=== PATIENT | male | born 1940 | race Caucasian/White ===

== ENCOUNTER 2017-02-03 15:00 | Inpatient (IN) | payer BC ==
[~2017-02-03] VITALS: Ht 174 cm; Wt 78.6 kg
[2017-02-03] MEDS ORDERED: ALBUTEROL 0.5% (NEB) 2.5 MG/0.5 ML AMP INH STA (17:01)
[2017-02-03] MEDS ORDERED: SOD CHLORIDE 0.9% 1,000 ML IV STA (17:01)
[2017-02-03] MEDS ORDERED: LORAZEPAM 0.5 MG TAB PO ONE (17:30)
[2017-02-03 17:34] LABS: ADD SCAN DIFF NO
[2017-02-03 17:36] LABS: ABNORMAL IP MESSAGE 1; HEMATOCRIT 34.9 % (42.0-52.0); HEMOGLOBIN 11.8 g/dl (14.0-18.0); MEAN CORPUSCULAR HEMOGLOBIN 29.1 pg (29.0-33.0); MEAN CORPUSCULAR HGB CONC 33.8 g/dl (32.0-37.0); MEAN PLATELET VOLUME 11.3 fl (7.4-10.4); PLATELET COUNT 484 10^3/UL (140-415); RED BLOOD COUNT 4.06 10^6/ul (4.70-6.10); RED CELL DISTRIBUTION WIDTH 13.6 % (11.5-14.5); WHITE BLOOD COUNT 33.1 10^3/ul (4.8-10.8)
[2017-02-03 17:38] LABS: ADD UMIC YES; URINE BILIRUBIN (Dip) NEGATIVE (NEGATIVE); URINE BLOOD (Dip) NEGATIVE (NEGATIVE); URINE COLOR YELLOW (YELLOW); URINE KETONES (Dip) TRACE (NEGATIVE); URINE LEUKOCYTE ESTERASE (Dip) NEGATIVE (NEGATIVE); URINE NITRITE (Dip) NEGATIVE (NEGATIVE); URINE TOTAL PROTEIN (Dip) 1+ (NEGATIVE); URINE UROBILINOGEN (Dip) 0.2 E.U./dL (0.1-1.0)
[2017-02-03 17:51] LABS: ALBUMIN 3.4 g/dl (3.3-4.9); BACTERIA,URINE FEW; CHLORIDE 93 mmol/L (97-110); SODIUM 133 mmol/L (135-144); SQUAMOUS EPITHELIAL CELL,UR RARE; URINE RBCS 0-2 /HPF (0)
[2017-02-03 17:53] LABS: CREATININE 1.25 mg/dl (0.61-1.24)
[2017-02-03 17:54] LABS: ALANINE AMINOTRANSFERASE 69 IU/L (13-69); ALKALINE PHOSPHATASE 131 IU/L (42-121); ANION GAP 19 (8-16); ASPARTATE AMINO TRANSFERASE 48 IU/L (15-46); BILIRUBIN,INDIRECT 0.7 mg/dl (0-1.1); BILIRUBIN,TOTAL 0.7 mg/dl (0.2-1.3); BLOOD UREA NITROGEN 26 mg/dl (7-20); CALCIUM 9.1 mg/dl (8.4-10.2); CARBON DIOXIDE 26 mmol/L (21-31); GLUCOSE 305 mg/dl (70-220); TOTAL PROTEIN 7.6 g/dl (6.1-8.1)
[2017-02-03 17:58] LABS: LYMPHOCYTES # 0.3 10^3/ul (0.8-2.9); NEUTROPHIL # 30.8 10^3/ul (1.6-7.5)
[2017-02-03 18:06] LABS: TROPONIN-I < 0.012 ng/ml (0.00-0.12)
--- NOTE | 2017-02-03 18:15 | RADRPT ---
PROCEDURE: CHEST 1VW CLINICAL INDICATION: Asthma exacerbation TECHNIQUE: Single frontal view of the chest was obtained COMPARISON: None. FINDINGS: The cardiac size is normal. Aortic vascular calcifications are demonstrated. There is no pulmonary vascular congestion. Minimal bronchial wall thickening is seen. Trace right effusion with associated atelectasis. Mild degenerative changes of the visualized osseous structures are visualized. IMPRESSION: 1. Minimal bronchial wall thickening may be sequela of bronchitis, asthma, or other nonspecific air way inflammation. 2. Atherosclerosis. 3. Trace right effusion with associated atelectasis. Intercurrent process within the atelectatic l jes cannot be excluded. RPTAT:PP .Denny Pickering MD, MD Date Time Electronically viewed and signed by .Denny Pickering MD, on 02/03/2017 18:15 .V/
[2017-02-03] MEDS ORDERED: SOD CHLORIDE 0.9% 1,000 ML IV ONE ×2 (18:30→19:30)
[2017-02-03] MEDS ORDERED: VANCOMYCIN 1 GM (PMX) 250 ML IVPB SCH (18:30)
[2017-02-03] MEDS ORDERED: CEFTRIAXONE 1 GM/50 ML (PMX) 50 ML IVPB ONE (18:30)
--- NOTE | 2017-02-03 19:25 | ERA ---
ER Documentation Chief Complaint Date/Time DATE: 02/03/17 TIME: 19:13 Chief Complaint UNABLE TO SLEEP AT NIGHT HPI 76-year-old man complains of continued cough and shortness of breath despite beginning treatment with azithromycin about 3 weeks ago for cough and URI symptoms. He states about 2 weeks ago a chest x-ray revealed right pulmonary infiltrate and he began treatment with levofloxacin every other day for continued symptoms. Patient has a history of chronic kidney disease and states creatinines have been stable and he urinates daily without difficulty. He's had no calf or leg swelling, no chest pain, no vomiting or diarrhea. ROS All systems reviewed and are negative except as per history of present illness. Medications Home Meds Reported Medications Aspirin* (Aspirin* EC) 81 Mg Tablet.dr, 81 MG PO DAILY, TAB 02/03/17 Cholecalciferol (Vitamin D3) (Vitamin D-3) 2,000 Unit Tablet, 2000 UNIT PO DAILY , TAB 02/03/17 Lisinopril/Hydrochlorothiazide (Lisinopril-Hctz 20-12.5 mg Tab) 1 Each Tablet, 1 EACH PO DAILY, TAB 02/03/17 Allopurinol* (Allopurinol*) 100 Mg Tablet, 100 MG PO DAILY, TAB 02/03/17 Allergies Allergies: Coded Allergies: No Known Allergy (Unverified , 02/03/17) PMhx/Soc History of Surgery: Yes (l. knee, nose (skin CA 1990), r. kidney stone removal ) Hx Miscellaneous Medical Probl: Yes (renal disease) Hx Alcohol Use: No Hx Substance Use: No Hx Tobacco Use: No Smoking Status: Never smoker FmHx Family History: No diabetes Physical Exam Vitals Vital Signs Date Time Temp Pulse Resp B/P Pulse Ox O2 Delivery O2 Flow Rate FiO2 02/03/17 18:05 120 20 97 21 02/03/17 15:17 98.3 141 19 132/65 97 Physical Exam GENERAL: Well-developed, well-nourished, appears dehydrated. Afebrile. HEENT: Dry mucous membranes, pink conjunctiva, no cervical spine tenderness or step-off deformities, no goiter, no jaundice or icterus, extraocular movements intact without pain. No submandibular induration, and no pharyngeal erythema NEURO: Alert and oriented 3, cranial nerves II through XII intact bilaterally, pupils equal round reactive to light, no focal deficits or facial asymmetry, sensation intact distally Strength 5/5 in upper and lower extremities bilaterally CARDIAC: Tachycardic and regular, no murmurs rubs or gallops LUNGS: Poor breath sounds at the right base with scattered wheezes, no crackles or stridor. ABDOMEN: Soft nontender, no guarding, no rigidity, no rebound, no psoas sign no obturator sign. Normoactive bowel sounds SKIN: Warm and dry to touch, no abrasions, contusions, or hematomas, no lacerations, no ecchymosis, no target lesions, and without ulcers EXTREMITIES: No clubbing cyanosis or edema, calves are bilaterally symmetrical, no Homans sign, no popliteal cord sign. Distal pulses equal and bilateral PSYCH: Normal affect without agitation or irritability Result Diagram: 02/03/17172902/03/170 Results 24 hrs Laboratory Tests Test 02/03/17 17:30 Alanine Aminotransferase (ALT/SGPT) 69IU/L Albumin 3.4g/dl Albumin/Globulin Ratio 0.80 Alkaline Phosphatase 131IU/L Anion Gap 19 Aspartate Amino Transf (AST/SGOT) 48IU/L Blood Urea Nitrogen 26mg/dl Calcium Level 9.1mg/dl Carbon Dioxide Level 26mmol/L Chloride Level 93mmol/L Creatinine 1.25mg/dl Differential Comment Direct Bilirubin 0.00mg/dl Globulin 4.20g/dl Glucose Level 305mg/dl Hematocrit 34.9% Hemoglobin 11.8g/dl Indirect Bilirubin 0.7mg/dl Lipase 162U/L Lymphocytes # 0.310^3/ul Lymphocytes % 1.0% Mean Corpuscular Hemoglobin 29.1pg Mean Corpuscular Hemoglobin Concent 33.8g/dl Mean Corpuscular Volume 86.0fl Mean Platelet Volume 11.3fl Monocytes # 2.010^3/ul Monocytes % 6.0% Neutrophils # 30.810^3/ul Neutrophils % 93.0% Platelet Count 83038^3/UL Potassium Level 5.0mmol/L Red Blood Count 4.0610^6/ul Red Cell Distribution Width 13.6% Sodium Level 133mmol/L Total Bilirubin 0.7mg/dl Total Protein 7.6g/dl Troponin I < 0.012ng/ml Urine Bacteria FEW Urine Bilirubin NEGATIVE Urine Clarity CLEAR Urine Color YELLOW Urine Glucose 0.25%% Urine Hemoglobin NEGATIVE Urine Ketones TRACE Urine Leukocyte Esterase NEGATIVE Urine Microscopic RBC 0-2/HPF Urine Microscopic WBC 0-2/HPF Urine Nitrite NEGATIVE Urine Specific [place] 1.025 Urine Squamous Epithelial Cells RARE Urine Total Protein 1+ Urine Urobilinogen 0.2 E.U./dL Urine pH 5.5 White Blood Count 33.110^3/ul Current Medications Medications (Trade) Dose Ordered Sig/Andreas Route PRN Reason Start Time Stop Time Status Last Admin Dose Admin Sodium Chloride (NS) 1,000 ml @ 1,000 mls/hr Q1H STAT IV 02/03/17 17:01 02/03/17 18:00 DC 02/03/17 17:36 Albuterol (Proventil 0.5% (Neb)) 10 mg ONCE STAT INH 02/03/17 17:01 02/03/17 17:03 DC 02/03/17 18:04 Lorazepam 0.5 mg 0.5 mg ONCE ONCE PO 02/03/17 17:30 02/03/17 17:31 DC 02/03/17 17:36 Sodium Chloride 1,000 ml @ 1,000 mls/hr Q1H ONCE IV 02/03/17 18:30 02/03/17 19:29 DC 02/03/17 19:03 Ceftriaxone Sodium 50 ml @ 100 mls/hr ONCE ONCE IVPB 02/03/17 18:30 02/03/17 18:59 DC 02/03/17 18:27 Vancomycin HCl 250 ml @ 125 mls/hr ONCE IVPB 02/03/17 18:30 02/03/17 20:29 02/03/17 19:03 Sodium Chloride 1,000 ml @ 1,000 mls/hr Q1H ONCE IV 02/03/17 19:30 02/03/17 20:29 Sodium Chloride (NS) 1,000 ml @ 100 mls/hr Q10H IV 02/03/17 19:29 IV Flush (NS 3 ml) 3 ml PER PROTOCOL IV 02/03/17 19:30 Ondansetron HCl (Zofran Inj) 4 mg Q6H PRN IV NAUSEA AND/OR VOMITING 02/03/17 19:30 Acetaminophen (Tylenol Tab) 650 mg Q6H PRN PO PAIN LEVEL 1-3 OR FEVER 02/03/17 19:30 Acetaminophen/ Hydrocodone Bitart ([place] (5/325)) 1 tab Q6H PRN PO MODERATE PAIN LEVEL 4-6 02/03/17 19:30 Acetaminophen/ Hydrocodone Bitart ([place] (5/325)) 2 tab Q6H PRN PO SEVERE PAIN LEVEL 7-10 02/03/17 19:30 Morphine Sulfate (morphine) 2 mg Q4H PRN IV SEVERE PAIN LEVEL 7-10 02/03/17 19:30 Docusate Sodium (Colace) 100 mg Q12H PRN PO CONSTIPATION 02/03/17 19:30 Magnesium Hydroxide (Milk Of Mag) 30 ml DAILY PRN PO CONSTIPATION 02/03/17 19:30 Bisacodyl (Dulcolax Supp) 10 mg DAILY PRN NV CONSTIPATION 02/03/17 19:30 Pantoprazole (Protonix Tab) 40 mg DAILY@06 PO 02/04/17 06:00 Heparin Sodium (Porcine) (Heparin (5000 Units/0.5 ml)) 5,000 unit Q8 SC 02/03/17 22:00 Vancomycin HCl (Vanco Iv Per Pharmacy) VANCOMYCIN PER PHARMACY PER PROTOCOL XX 02/03/17 20:00 UNV Insulin Aspart (Novolog Insulin Pen) NOVOLOG *MODERATE* ALGORITHM WITH MEALS BEDTIME SC 02/03/17 21:00 Miscellaneous Information (* Miscellaneous Pharmacy Order) HYPOGLYCEMIA PROTOCOL w... ONCE ONCE XX 02/03/17 20:00 02/03/17 20:01 Miscellaneous Information (* Miscellaneous Pharmacy Order) Discontinue Glyburide, Glipizide,... ONCE ONCE XX 02/03/17 20:00 02/03/17 20:01 Miscellaneous Information (* Miscellaneous Pharmacy Order) Discontinue all previ... ONCE ONCE XX 02/03/17 20:00 02/03/17 20:01 Miscellaneous Information 1 ea NOTE XX 02/03/17 20:00 Glucose (Glutose) 15 gm Q15M PRN PO DECREASED GLUCOSE 02/03/17 20:00 Glucose (Glutose) 22.5 gm Q15M PRN PO DECREASED GLUCOSE 02/03/17 20:00 Dextrose (D50w Syringe) 25 ml Q15M PRN IV DECREASED GLUCOSE 02/03/17 20:00 Dextrose (D50w Syringe) 50 ml Q15M PRN IV DECREASED GLUCOSE 3/21/17 20:00 Glucagon (Glucagen) 1 mg Q15M PRN IM DECREASED GLUCOSE 02/03/17 20:00 Glucose (Glutose) 15 gm Q15M PRN BUCCAL DECREASED GLUCOSE 02/03/17 20:00 Lorazepam (Ativan) 0.5 mg Q8H PRN IV ANXIETY 02/03/17 20:00 UNV Zolpidem Tartrate 5 mg 5 mg HS MAY REPEAT X 1 PRN PO INSOMNIA 02/03/17 20:00 UNV Cefepime HCl (Maxipime 2gm/50 ml (Pmx)) 50 ml @ 100 mls/hr Q12 IVPB 02/03/17 21:00 UNV Allopurinol (Zyloprim) 100 mg DAILY PO 02/04/17 09:00 UNV Aspirin (Halfprin) 81 mg DAILY PO 02/04/17 09:00 UNV Miscellaneous Information 2,000 unit DAILY PO 02/04/17 09:00 UNV Procedures/MDM IV line was established 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 Patient was afebrile. Blood cultures were drawn prior to antibiotic therapy. I do not suspect sepsis. I administered about 2 L normal saline intravenously for dehydration, albuterol 10 mg via nebulizer, ceftriaxone 1 g IV, vancomycin 1 g IV. EKG performed, read by me revealed a sinus tachycardia at 119 bpm, left axis deviation, narrow QRS complex, no concerning ST elevations or depressions noted. One view chest x-ray performed, read by me reveals a right lower lobe infiltrate with atelectatic changes bilaterally, no pneumothorax, no and of the diaphragm. For anxiety I administered lorazepam 0.5 mg by mouth times one with good effect. Patient remains afebrile although his symptomatic I will admit to [facility] for continued medical management and IV antibiotics. Further antibiotic treatment deferred to admitting physician. Departure Diagnosis: Primary Impression: Pneumonia Qualified Code: J18.9 - Pneumonia of right lower lobe due to infectious organism Additional Impressions: Dehydration Leukocytosis Qualified Code: D72.820 - Lymphocytosis Hyperglycemia Chronic kidney disease Qualified Code: N18.3 - Chronic kidney disease, stage 3 (moderate) Condition: CODY Muller MD Feb 03, 2017 19:24
[2017-02-03] MEDS ORDERED: BISACODYL 10 MG SUPP PR PRN (19:30)
[2017-02-03] MEDS ORDERED: MAGNESIUM HYDROXIDE 30ML CUP PO PRN (19:30)
[2017-02-03] MEDS ORDERED: DOCUSATE SODIUM 100 MG CAP PO PRN (19:30)
[2017-02-03] MEDS ORDERED: ACETAMINOPHEN 325 MG TAB PO PRN (19:30)
[2017-02-03] MEDS ORDERED: ONDANSETRON 4 MG INJ IV PRN (19:30)
[2017-02-03] MEDS ORDERED: NACL 0.9% 3 ML SYG IV SCH (19:30)
[2017-02-03] MEDS ORDERED: ALLO100T PO (19:45)
[2017-02-03] MEDS ORDERED: LISI1TAB6 PO (19:46)
[2017-02-03] MEDS ORDERED: CHOL20002 PO (19:48)
[2017-02-03] MEDS ORDERED: ASPI-664 PO (19:49)
[2017-02-03] MEDS ORDERED: DEXTROSE 50% 50 ML SYRINGE IV PRN ×2 (20:00)
[2017-02-03] MEDS ORDERED: GLUCOSE GEL 15 GRAM TUBE PO PRN ×2 (20:00)
[2017-02-03] MEDS ORDERED: VANCOMYCIN IV PER PHARMACY XX SCH (20:00)
[2017-02-03] MEDS ORDERED: GLUCOSE GEL 15 GRAM TUBE BUCCAL PRN (20:00)
[2017-02-03] MEDS ORDERED: GLUCAGON 1 MG INJ IM PRN (20:00)
[2017-02-03] MEDS ORDERED: LORAZEPAM 2 MG INJ IV PRN (20:00)
[2017-02-03] MEDS: INSULIN ASPART [NOVOLOG] 3 ML PEN SC SCH (21:00)
--- NOTE | 2017-02-03 21:13 | RADRPT ---
PROCEDURE: CT Chest without contrast. CLINICAL INDICATION: Shortness of breath. Abnormal chest x-ray. TECHNIQUE: Helical axial sections were obtained through the chest without intravenous contrast enh ancement. Coronal and sagittal reformatted images were obtained from the axial source images. Total exam DLP is 412.03 mGy-cm. CTDIvol is 11.51 mGy. One or more of the following dose reduction juan hniques were used: Automated exposure control, adjustment of the mA and/or kV according to patient s ize, use of iterative reconstruction technique. COMPARISON: None FINDINGS: There is a pleural-based multiloculated fluid collection posteriorly inferiorly on the right side co nsistent with probable empyema measuring approximately 12.1 x 4.2 x 10.7 cm in AP, transverse, and c ranial caudal dimensions. A second fluid collection is noted anteriorly inferiorly on the right [place] approximately 3.0 x 5.3 x 3.5 cm in AP, transverse, and cranial caudal dimensions. There is a djacent mild pulmonary consolidation consistent with atelectasis or pneumonia. There is mild atelec tasis at the left lung base posteriorly. There is no pulmonary nodule or mass lesion. There is no mediastinal or hilar lymphadenopathy or mass. There is no axillary, supraclavicular, or internal mammary lymphadenopathy. The thoracic aorta is not dilated. The heart size is normal. There is no pericardial effusion. There is no left pleural effusion. Images through the upper abdomen demonstrate normal visualized portions of the liver, spleen, and ad renals. There is a calcified gallstone in the gallbladder. There is ossification of the anterior longitudinal ligament of the thoracic spine consistent with pr obable ankylosing spondylitis. There is no fracture or lytic lesion. IMPRESSION: 1. Pleural-based multiloculated fluid collection posteriorly inferiorly on the right measuring 12.1 x 4.2 x 10.7 cm. Second fluid collection anteriorly inferiorly on the right measuring 3.0 x 5.3 x 3.5 cm. The findings are likely due to empyema. 2. Mild pulmonary consolidation adjacent to the fluid collections. 3. Gallstone in the gallbladder. 4. Ossification of the anterior longitudinal ligament of the thoracic spine consistent with probabl e ankylosing spondylitis. RPTAT: QQ .Kyle Vizcarra MD, MD Date Time Electronically viewed and signed by .Kyle Vizcarra MD, on 02/03/2017 21:12 .R/
[2017-02-03 21:25] VITALS: TEMP 98.3
[2017-02-03 21:50] VITALS: Ht 174 cm; Wt 78.6 kg
[2017-02-03 22:13] VITALS: BP 119/56; PULSE 100; RESP 18
[2017-02-03] MEDS: SOD CHLORIDE 0.9% 1,000 ML IV SCH (22:43)
[2017-02-03] MEDS: CEFEPIME 2GM/50 ML (PMX) 50 ML IVPB SCH (23:40)
[2017-02-03] MEDS: ZOLPIDEM 5 MG TAB PO PRN (23:40)
[2017-02-03] MEDS: HEPARIN 5,000 UNIT/0.5 ML SYG SC SCH (23:44)
[2017-02-04] MEDS: VANCOMYCIN 1 GM in NS 250 ML IVPB SCH ×2 (04:28→16:58)
[2017-02-04] MEDS: SOD CHLORIDE 0.9% 1,000 ML IV SCH ×2 (05:29→15:29)
[2017-02-04] MEDS: PANTOPRAZOLE (EC) 40 MG TAB PO SCH (05:31)
[2017-02-04] MEDS: HEPARIN 5,000 UNIT/0.5 ML SYG SC SCH ×2 (05:35→13:14)
[2017-02-04 06:32] LABS: ADD SCAN DIFF NO
[2017-02-04 06:37] LABS: ABNORMAL IP MESSAGE 1; BASOPHILS % 0.1 % (0.0-2.0); HEMATOCRIT 28.5 % (42.0-52.0); HEMOGLOBIN 9.2 g/dl (14.0-18.0); LYMPHOCYTES # 0.5 10^3/ul (0.8-2.9); LYMPHOCYTES % 2.3 % (15.0-51.0); MEAN CORPUSCULAR HEMOGLOBIN 28.4 pg (29.0-33.0); MEAN CORPUSCULAR HGB CONC 32.3 g/dl (32.0-37.0); MEAN PLATELET VOLUME 10.9 fl (7.4-10.4); MONOCYTE # 1.9 10^3/ul (0.3-0.9); MONOCYTES % 8.8 % (0.0-11.0); NEUTROPHILS % 87.2 % (39.0-77.0); PLATELET COUNT 353 10^3/UL (140-415); RED BLOOD COUNT 3.24 10^6/ul (4.70-6.10); RED CELL DISTRIBUTION WIDTH 13.7 % (11.5-14.5); WHITE BLOOD COUNT 21.8 10^3/ul (4.8-10.8)
[2017-02-04 07:09] LABS: ALBUMIN 2.6 g/dl (3.3-4.9); POTASSIUM 4.3 mmol/L (3.5-5.1)
[2017-02-04 07:11] LABS: BILIRUBIN,INDIRECT 0.3 mg/dl (0-1.1); BILIRUBIN,TOTAL 0.3 mg/dl (0.2-1.3); CREATININE 1.09 mg/dl (0.61-1.24)
[2017-02-04 07:12] LABS: ALBUMIN/GLOBULIN RATIO 0.76; PHOSPHORUS 2.7 mg/dl (2.5-4.9)
[2017-02-04 07:13] LABS: CALCIUM 7.9 mg/dl (8.4-10.2); MAGNESIUM 1.8 mg/dl (1.7-2.5)
[2017-02-04] MEDS: CHOLECALCIFEROL 2,000 UNIT CAP PO SCH (08:15)
[2017-02-04] MEDS: INSULIN ASPART [NOVOLOG] 3 ML PEN SC SCH ×5 (08:15→20:49)
[2017-02-04] MEDS: ALLOPURINOL 100 MG TAB PO SCH (08:15)
[2017-02-04] MEDS: ASPIRIN (EC) 81 MG TAB PO SCH (08:15)
[2017-02-04 08:40] VITALS: BP 101/49; RESP 20
[2017-02-04] MEDS: CEFEPIME 2GM/50 ML (PMX) 50 ML IVPB SCH ×2 (10:10→20:46)
--- NOTE | 2017-02-04 14:01 | HP ---
DATE OF ADMISSION: 02/03/2017 CHIEF COMPLAINT ON ADMISSION: Discomfort, inability to sleep. HISTORY OF PRESENT ILLNESS: This is a 76-year-old male with apparently history of chronic kidney di sease stage I or II and also more recently a recent diagnosis of right lower lobe pneumonia approxim ately a month to month and half ago. The patient originally went to his primary care physician back in December with complaint of cough. He was seen at that time and treated conservatively with just Tylenol and cough suppressant. A week later the patient was not doing well. He kept coughing. He decided to go to urgent care where he had a chest x-ray done. He was found to have a right lower l obe pneumonia and started on a Z-ROSALEE. He followed up a week after that at the urgent care again had a repeat x-ray which showed, according to the patient, slight improvement of the right lower lobe p neumonia, but not significant enough; therefore, he was started on Levaquin and because of his histo ry of kidney disease he was put on Levaquin every other day dosing for a total of 5 days. The patie nt subsequently apparently followed up with his primary care physician and also had lab drawn on 05/2017 was found to have a white blood cell count of 32,000. He then was still on Levaquin and fin ishing his antibiotic course. He had repeat labs 3 days later white count was down to 28,000. Ther efore, at that time he was told he was doing better and set up to have a CAT scan as an outpatient. He had a CT of the chest apparently as an outpatient 5 days ago and was told that he still had sign s of pneumonia, but no concerning findings apparently. The patient over the past 5 days was at home just in a lot of discomfort. He was unable to sleep. He reports occasional dyspnea on exertion, d yspnea with speech or orthopnea and just restlessness at night mostly. He was having pleuritic righ t-sided chest pain earlier on when he was first diagnosed with pneumonia, but it resolved while he w as on ibuprofen. Therefore, it seems like his symptoms for the pneumonia were improving; however, t he patient was just very restless. In the emergency department, he had a chest x-ray done which did show right pleural effusion, possible underlying infiltrate. His white blood cell count came back at 33,000, and the patient has been off antibiotics for a week and a half by now. He was started on IV fluids, broad spectrum antibiotic including cefepime and vancomycin and admitted to a medical/guerrero rgical bed. CAT scan of the chest was again ordered. This time the CAT scan from here at [facility] is showing pleural based multiloculated fluid collection posteriorly inferiorly in the right measuring 12 x 4 x 10 cm second fluid collection anterior inferiorly on the right measu ring 3 x 5 x 3 cm, findings likely due to empyema according to the CAT scan. The patient is agreeab le to have a diagnostic paracentesis today. His white count is down to 21,000 on labs today and dep ending on the results of the thoracentesis. I will discuss with pulmonary if the patient needs any further surgical intervention versus antibiotic treatment. The patient reports no fevers throughout . His cough has subsided and resolved by now. He reports generalized weakness and slightly decreas ed appetite. ALLERGIES: NO KNOWN ALLERGIES. PAST MEDICAL HISTORY: 1. Chronic kidney disease must be stage I or II. This is secondary to right kidney damage secondar y to nephrolithiasis back in 2008. 2. Right lower lobe pneumonia recently diagnosed and has gone through antibiotics as an outpatient. OUTPATIENT MEDICATIONS: 1. Lisinopril/hydrochlorothiazide 20/12.5 mg 1 tab p.o. daily. 2. Aspirin 81 mg p.o. daily. 3. Vitamin D3 2000 units p.o. daily. 4. Allopurinol 100 mg p.o. daily. PAST SURGICAL HISTORY: 1. Status post left knee ligament repair back in the 70s. 2. Status post nasal surgery for skin cancer from what he is report back in the s. 3. Status post lithotripsy and ureteral stent placement to left kidney back in 2008 when he had an episode of obstructive uropathy and nephrolithiasis. SOCIAL HISTORY: The patient denies any alcohol or tobacco use. REVIEW OF SYSTEMS: As per HPI. PHYSICAL EXAMINATION: VITAL SIGNS: Temperature 98.3, heart rate of 102, respiratory rate of 20, blood pressure 101/49. P atient is saturating 94% on room air. GENERAL: He is alert and oriented x4, not in acute distress, very pleasant gentleman. HEENT: Pupils are equally round and reactive to light. Extraocular muscles are intact. Anicteric sclerae. NECK: No JVD, no thyromegaly noted. HEART: Regular rhythm, tachycardic slightly. LUNGS: Decreased breath sounds, right lower lobe, otherwise clear to auscultation left side and rig ht upper lobe. ABDOMEN: Soft, nontender, nondistended. Bowel sounds are present. EXTREMITIES: No edema, clubbing or cyanosis. NEUROLOGIC: Grossly intact. LABORATORY DATA: White blood cell count is 21.8, down from 33.1, hemoglobin 9.2 down from 11.8, rosie telet count of 353, down from 484. On presentation, he had a left shift with 93% neutrophils. Chem istry with a sodium of 137, potassium 4.3, chloride 103, bicarbonate 24, BUN 18, creatinine 1.09, gl ucose of 185. Hemoglobin A1c is 9.0, calcium 7.9, albumin 2.6, total protein 6.0, blood sugars have ranged between 185 and 230. Urinalysis is fairly negative. RADIOLOGICAL DATA: 1. Chest x-ray on presentation showed minimal bronchial wall thickening, may be a sequelae of bronc hitis, asthma or airway inflammation and trace right effusion with associated atelectasis. 2. CAT scan of the chest, subsequently showed a pleural based multiple loculated fluid collection p osteriorly inferiorly on the right measuring 12.1 x 4.2 x 10.7 cm. Second fluid collection anteriorl y inferior to the right measuring 3.0 x 5.3 x 3.5 cm. Finding likely due to empyema, mild pulmonary consolidation adjacent to the fluid collection, gallstone in the gallbladder, ossification of the a nterior longitudinal ligament of the thoracic spine consistent with probable ankylosing spondylitis. ASSESSMENT AND PLAN: This is a 76-year-old male with: 1. Located pleural effusions concern for empyema given his white blood cell count of 33, known righ t lower lobe pneumonia that has been on treatment for the past few weeks and current CT scan finding s. I have ordered a diagnostic thoracentesis. I will have pulmonary consult on board, along with a lso infectious disease consult and depending on the results of the thoracentesis we will have cardio thoracic surgery involved if the patient needs VATS procedure. For now, continue broad spectrum ant ibiotics including cefepime and vancomycin. 2. Chronic kidney disease. Must be stage I or II, as the patient's renal function is fairly good cu rrently. Continue IV fluids and renal dose antibiotics as needed. 3. New onset diabetes mellitus versus hyperglycemia related to the underlying inflammatory or infec tious process. Hemoglobin A1c is up to 9.0. I have placed the patient on a sliding scale insulin f or now and he may benefit from Tradjenta in order to control his blood sugars while inpatient. 4. Hypertension. I will hold his medications for now including the diuretics. Continue IV fluids and monitor renal function. 5. Prophylaxis. Deep venous thrombosis prophylaxis with heparin drip. We will hold at this time s yash we are attempting the thoracentesis and Protonix for GI prophylaxis. DISPOSITION: Right pleural effusion thoracentesis diagnostic pending, pulmonary and infectious dise ase consult will also be ordered. Dictated By: PAULIE COSTA/JARED Conf#: [id number] DID#: [id number]
[2017-02-04 14:06] LABS: INR 1.25; PROTIME 15.8 Sec (12.2-14.2); PT RATIO 1.2
[2017-02-04 14:42] LABS: PARTIAL THROMBOPLASTIN TIME 35.8 Sec (25.0-35.0)
[2017-02-04] MEDS ORDERED: LIDOCAINE 1% (MPF) 5 ML VIAL ONE (16:29)
--- NOTE | 2017-02-04 16:38 | RADRPT ---
PROCEDURE: XR Chest. CLINICAL INDICATION: Status post thoracentesis TECHNIQUE: Single portable view of the chest was obtained COMPARISON: Yesterday FINDINGS: The heart, lungs and mediastinum are otherwise unchanged. There is no evidence of pneumothorax statu s post thoracentesis. There is right lower lobe atelectasis and right pleural effusion. The heart i s normal in size. RPTAT:AA IMPRESSION: No pneumothorax status post thoracentesis. .Bear Fraser MD, MD Date Time Electronically viewed and signed by .Bear Fraser MD, MD on 02/04/2017 16:38 .S/
--- NOTE | 2017-02-04 16:41 | RADRPT ---
PROCEDURE: US guided right thoracentesis. CLINICAL INDICATION: Shortness of breath. Right pleural effusion. TECHNIQUE: Prior to the procedure, informed consent was obtained. The risks, benefits, and alternatives were e xplained to the patient or the patient's family, including but not limited to bleeding, infection, p ain, visceral or vascular damage, shock, pneumothorax, chest tube placement, air embolism, and . The patient or the patient's family understood the risks and the alternatives and wished to proce ed with the study. Informed written consent was obtained. A procedural pause was performed. The patient's name, date of , and procedure to be performed were verified. Ultrasound of the right hemithorax was performed in the axial and sagittal planes. A right pleural e ffusion is noted. Utilizing ultrasound guidance, optimal location for entry to the pleural cavity wa s ascertained. The overlying skin was prepped and draped in the usual sterile fashion. Approximate ly 10 ml of 1% Xylocaine was injected locally for pain control. Using ultrasound guidance, a 5-Fren Yueh catheter was introduced into the right pleural space without difficulty. Fluid was aspirated . COMPARISON: CT scan of the chest dated 02/03/2017. FINDINGS: Initial ultrasound demonstrates fluid in the right pleural space. Approximately 2 ml of thick green fluid was aspirated and sent to the laboratory. IMPRESSION: 1. Satisfactory ultrasound-guided right thoracentesis. Thick green fluid was aspirated. Surgical c onsultation is advised. RPTAT: QQ .Kyle Vizcarra MD, MD Date Time Electronically viewed and signed by .Kyle Vizcarra MD, on 02/04/2017 16:40 .R/
--- NOTE | 2017-02-04 17:02 | QN ---
Documentation Comment Called by Dr Vizcarra, Patient with green purulent material from diagnostic thoracentesis, recommending Cardio-Thoracic surgery evaluation Dr Negrete consulted . Continue IV abx for now PAULIE DIAZ Feb 04, 2017 17:02
[2017-02-04 21:08] VITALS: BP 126/57; RESP 20
[2017-02-04] MEDS: ZOLPIDEM 5 MG TAB PO PRN (23:57)
[2017-02-05] MEDS: SOD CHLORIDE 0.9% 1,000 ML IV SCH ×4 (01:29→17:02)
[2017-02-05] MEDS: VANCOMYCIN 1 GM in NS 250 ML IVPB SCH ×2 (03:45→20:21)
[2017-02-05] MEDS: PANTOPRAZOLE (EC) 40 MG TAB PO SCH (05:06)
[2017-02-05 05:54] LABS: ADD SCAN DIFF NO
[2017-02-05 06:00] LABS: ABNORMAL IP MESSAGE 1; BASOPHILS % 0.1 % (0.0-2.0); EOSINOPHILS % 0.1 % (0.0-7.0); HEMATOCRIT 31.2 % (42.0-52.0); HEMOGLOBIN 9.9 g/dl (14.0-18.0); LYMPHOCYTES # 1.4 10^3/ul (0.8-2.9); LYMPHOCYTES % 5.5 % (15.0-51.0); MEAN CORPUSCULAR HGB CONC 31.7 g/dl (32.0-37.0); MEAN CORPUSCULAR VOLUME 88.1 fl (82.0-101.0); MONOCYTE # 1.5 10^3/ul (0.3-0.9); MONOCYTES % 6.2 % (0.0-11.0); NEUTROPHIL # 21.4 10^3/ul (1.6-7.5); NEUTROPHILS % 85.9 % (39.0-77.0); PLATELET COUNT 395 10^3/UL (140-415); RED BLOOD COUNT 3.54 10^6/ul (4.70-6.10); RED CELL DISTRIBUTION WIDTH 13.8 % (11.5-14.5); WHITE BLOOD COUNT 24.9 10^3/ul (4.8-10.8)
[2017-02-05 06:27] LABS: MAGNESIUM 1.8 mg/dl (1.7-2.5); PHOSPHORUS 3.3 mg/dl (2.5-4.9)
[2017-02-05 06:39] LABS: POTASSIUM 4.1 mmol/L (3.5-5.1)
[2017-02-05 06:41] LABS: CREATININE 1.07 mg/dl (0.61-1.24)
[2017-02-05 06:42] LABS: CALCIUM 8.5 mg/dl (8.4-10.2)
[2017-02-05] MEDS: INSULIN ASPART [NOVOLOG] 3 ML PEN SC SCH ×4 (08:00→21:00)
[2017-02-05 08:36] VITALS: BP 114/54; RESP 20
[2017-02-05] MEDS: ALLOPURINOL 100 MG TAB PO SCH (09:00)
[2017-02-05] MEDS: ASPIRIN (EC) 81 MG TAB PO SCH (09:00)
[2017-02-05] MEDS: CHOLECALCIFEROL 2,000 UNIT CAP PO SCH (09:00)
[2017-02-05] MEDS ORDERED: INFLUENZA VIRUS VACCINE 0.5 ML (DISPENSING) IM* ONE (09:00)
[2017-02-05] MEDS: CEFEPIME 2GM/50 ML (PMX) 50 ML IVPB SCH ×2 (09:26→21:56)
--- NOTE | 2017-02-05 09:51 | CONS ---
DATE OF ADMISSION: 02/03/2017 DATE OF CONSULTATION: 02/05/2017 TYPE OF CONSULTATION: Thoracic surgical REQUESTING PHYSICIANS: Dr. Jessie Patricio DIAGNOSIS: Right-sided empyema. HISTORY OF PRESENT ILLNESS: Patient is a 76-year-old gentleman with a history of pneumonia, shortne ss of breath, cough of 1 1.5 months' duration. He experienced some pleuritic sided chest pain, soug ht assistance at [facility] and was given first a Z-ROSALEE and x-ray demonstrated right pneumonia . Ibuprofen was prescribed a Z-ROSALEE was then switched to Levaquin p.o. and then he went to a [facility] around January [address] scan of the chest. He had lost approximately 30 pounds of weight, became very lethargic and weak and presented to [facility] where he was adm itted on 02/03/2017. His white count is in the 25 to 30,000 range. A chest x-ray demonstrated a right pleural effusion. Chest CT demonstrated loculated pleural fluid, right-sided thoracentesis obtained yesterday demonstrating denise pus. The patient has been treated with IV vancomycin and cefepime. ALLERGIES: HAS NO KNOWN MEDICAL ALLERGIES. PAST MEDICAL HISTORY: Kidney stone. He is treated for what sounds like hypertension. Denies diabe keny, hypertension, TB, hepatitis, cancer, myocardial infarction or stroke. SOCIAL HISTORY: Nonsmoker, nondrinker. FAMILY HISTORY: Mother at age 53. Uterine carcinoma. Father at age 88 heart disease, pr ostate cancer. REVIEW OF SYSTEMS: CONSTITUTIONAL: Denies fever. Admits to chills, weight loss as noted above. Eyes: Denies blurred or double vision. NEUROLOGICAL: Denies syncope, seizure or CVA. RESPIRATORY: Positive for shortness of breath and cough, but denies sputum production, hemoptysis o r wheezing. CARDIAC: Denies heart murmur, palpitations, myocardial infarction. GENITOURINARY: Positive for kidney stone in the distant past. Denies hematuria. Denies UTI. GASTROINTESTINAL: Denies peptic ulcer disease, biliary tract disease, hematemesis. MUSCULOSKELETAL: Denies arthritis. DERMATOLOGIC: Denies skin rash or boils. ENT: Denies epistaxis, denies sinusitis. PHYSICAL EXAMINATION: VITAL SIGNS: Height 5 foot 8, 165 pounds, blood pressure 126/57, pulse 112, respirations 20. HEENT: Atraumatic, normocephalic. Sclerae are anicteric. Pupils equal, round, react to light and accommodation. Nose, mouth and throat clear. NECK: Supple. CHEST: Lungs stout, decreased breath sounds on the right compared to the left. CARDIAC: Tachycardic, normal S1, S2. EXTREMITIES: No cyanosis, clubbing or edema. ABDOMEN: Normal bowel sounds. Soft. No tenderness, mass or guarding. LYMPHATIC: No cervical or axillary adenopathy. NEUROLOGIC: Cranial nerves II through XII intact. Motor, sensory, cerebellar intact. IMPRESSION: Right-sided empyema and right-sided pneumonia. PLAN: Right-sided thoracotomy, pulmonary decortication and a flexible bronchoscopy. The procedures were explained to the patient, potential need for blood transfusion were explained and accepted. C omplications include but are not limited to anesthesia, bleeding, infection, injury to the underlyin g lung and respiratory failure requiring prolonged mechanical ventilation. All questions are answer ed. He gives informed consent to proceed. Dictated By: PARTH HURST/JARED Conf#: [id number] DID#: [id number] CC: REBA RAI MD; PAULA DOMINGUEZ MD;*[facility]*
--- NOTE | 2017-02-05 10:37 | RADRPT ---
Vent Rate: 119 bpm RR Interval: 0 msec [place] Interval: 178 msec QRS Duration: 84 msec QT Interval: 316 msec QTC Interval: 444 msec P-R-T Fenton: 74 - -60 - 70 degrees Sinus tachycardia Left anterior fascicular block Minimal voltage criteria for LVH, may be normal variant Abnormal ECG Electronically Signed By: Barry Cotto [id number]
[2017-02-05 11:17] LABS: INR 1.16; PROTIME 14.9 Sec (12.2-14.2); PT RATIO 1.2
--- NOTE | 2017-02-05 13:34 | CONS ---
Date/Time of Note Date/Time of Note DATE: 02/05/17 TIME: 13:30 Assessment/Plan Assessment/Plan Additional Assessment/Plan Chest x-ray was reviewed from which is showing right lower lobe infiltrative changes. CT scan chest was reviewed which is showing partially loculated right pleural effusion. Assessment and recommendations; 1. Patient admitted for empyema. With significant leukocytosis. Currently on appropriate antibiotic regimen. 2. Stable hypertension. Next 3. Stable gout. Continue current treatment. Patient scheduled for VATS procedure today. Consultation Date/Type/Reason Admit Date/Time Feb 03, 2017 at 19:13 Date of Consultation: Feb 05, 2017 Type of Consultation: Pulmonary Reason for Consultation Pulmonary consultation obtained for evaluation of empyema. History presenting; patient is a very pleasant 76-year-old white male who came into the hospital 2 days ago with complaints of not feeling well with the last couple weeks the patient has had a history of recent pneumonia was treated on outpatient basis with antibiotics but according to him he did not just get better. Complaining of right-sided pain brought on by deep breathing. Scant cough. Cording to him the couple of very severe a few weeks ago. Patient has lost 30 pounds over the last couple weeks. Denies any low-grade fever any night sweats fever chills according to him he somewhat better now. Admission chest x-ray was done which is showing infiltrative changes right lower lobe area which is suggestive of pneumonia versus pleural effusion. She also had had a thoracentesis done but very scant fluid could be removed. CT scan of chest showing empyema involving the right lung. Patient is scheduled for a VATS procedure today. Past medical history; next 1. Patient with a history of renal stone. 2. Hypertension. 3. History of left knee surgery. 4. History of skin cancer involving the Medications; were reviewed. Allergies; are none. Social history; patient never smoked, no history of alcohol or drug abuse. Next Family history; patient is , has 1 child. No show any illnesses in the family. Occupational history; patient used to work for [employer]. He is retired. Review of systems; denies any headache, visual changes, seizures, sinus symptoms. Chest pain on the right side is improved. Because of cough, denies any sputum production hemoptysis. Abdominal pain, nausea, has lost 30 pounds. Denies any edema, complains of severe generalized weakness for the last couple weeks. Denies any skin changes. General exam; elderly male, currently in no distress. Awake and alert. Social History Smoking Status: Never smoker Exam/Review of Systems Vital Signs Vitals Vital Signs Date Time Temp Pulse Resp B/P Pulse Ox O2 Delivery O2 Flow Rate FiO2 02/05/17 08:36 99.6 105 20 114/54 95 02/03/17 22:13 Room Air 02/03/17 18:05 21 Intake and Output 02/04/17 02/04/17 02/05/17 15:00 23:00 07:00 Intake Total 50 ml 1100 ml 1275 ml Output Total 1250 ml Balance 50 ml 1100 ml 25 ml Results Result Diagram: 02/05/17 0510 02/05/17 0510 Results 24 hrs Laboratory Tests Test 02/04/17 13:39 02/04/17 17:12 02/04/17 20:43 02/05/17 03:47 Prothrombin Time 15.8 H Prothrombin Time Ratio 1.2 INR International Normalized Ratio 1.25 Activated Partial Thromboplast Time 35.8 H Bedside Glucose 200 192 135 Test 02/05/17 05:10 02/05/17 09:09 02/05/17 10:47 02/05/17 12:09 White Blood Count 24.9 H Red Blood Count 3.54 L Hemoglobin 9.9 L Hematocrit 31.2 L Mean Corpuscular Volume 88.1 Mean Corpuscular Hemoglobin 28.0 L Mean Corpuscular Hemoglobin Concent 31.7 L Red Cell Distribution Width 13.8 Platelet Count 395 Mean Platelet Volume 11.0 H Neutrophils % 85.9 H Lymphocytes % 5.5 L Monocytes % 6.2 Eosinophils % 0.1 Basophils % 0.1 Nucleated Red Blood Cells % 0.0 Neutrophils # 21.4 H Lymphocytes # 1.4 Monocytes # 1.5 H Eosinophils # 0.0 Basophils # 0.0 Nucleated Red Blood Cells # 0.0 Sodium Level 138 Potassium Level 4.1 Chloride Level 102 Carbon Dioxide Level 25 Anion Gap 15 Blood Urea Nitrogen 14 Creatinine 1.07 Glucose Level 137 # Calcium Level 8.5 Phosphorus Level 3.3 Magnesium Level 1.8 Bedside Glucose 172 174 Prothrombin Time 14.9 H Prothrombin Time Ratio 1.2 INR International Normalized Ratio 1.16 Medications Medications Current Medications Sodium Chloride (NS) 1,000 ml @ 150 mls/hr Q6H40M IV Last administered on 02/05 03:43; Admin Dose 100 MLS/HR; Start 02/03/17 at 19:29 Ondansetron HCl (Zofran Inj) 4 mg Q6H PRN IV NAUSEA AND/OR VOMITING; Start at 19:30 Acetaminophen (Tylenol Tab) 650 mg Q6H PRN PO PAIN LEVEL 1-3 OR FEVER; Start at 19:30 Acetaminophen/ Hydrocodone Bitart ([place] (5/325)) 1 tab Q6H PRN PO MODERATE PAIN LEVEL 4-6; Start 02/03/17 at 19:30 Acetaminophen/ Hydrocodone Bitart ([place] (5/325)) 2 tab Q6H PRN PO SEVERE PAIN LEVEL 7-10; Start 02/03/17 at 19:30 Morphine Sulfate (morphine) 2 mg Q4H PRN IV SEVERE PAIN LEVEL 7-10; Start 02/03 at 19:30 Docusate Sodium (Colace) 100 mg Q12H PRN PO CONSTIPATION; Start 02/03/17 at 19: 30 Magnesium Hydroxide (Milk Of Mag) 30 ml DAILY PRN PO CONSTIPATION; Start at 19:30 Bisacodyl (Dulcolax Supp) 10 mg DAILY PRN [place] CONSTIPATION; Start 02/03/17 at 19 :30 Pantoprazole (Protonix Tab) 40 mg DAILY@06 PO Last administered on 02/04/17 05 :31; Admin Dose 40 MG; Start 02/04/17 at 06:00 Heparin Sodium (Porcine) (Heparin (5000 Units/0.5 ml)) 5,000 unit Q8 SC Last administered on 02/04/17 05:35; Admin Dose 5,000 UNIT; Start 02/03/17 at 22:00 ; Status Future Hold Miscellaneous Information 1 ea NOTE XX ; Start 02/03/17 at 20:00 Glucose (Glutose) 15 gm Q15M PRN PO DECREASED GLUCOSE; Start 02/03/17 at 20:00 Glucose (Glutose) 22.5 gm Q15M PRN PO DECREASED GLUCOSE; Start 02/03/17 at 20: 00 Dextrose (D50w Syringe) 25 ml Q15M PRN IV DECREASED GLUCOSE; Start 02/03/17 at 20:00 Dextrose (D50w Syringe) 50 ml Q15M PRN IV DECREASED GLUCOSE; Start 02/03/17 at 20:00 Glucagon (Glucagen) 1 mg Q15M PRN IM DECREASED GLUCOSE; Start 02/03/17 at 20:00 Glucose (Glutose) 15 gm Q15M PRN BUCCAL DECREASED GLUCOSE; Start 02/03/17 at 20 :00 Lorazepam 0.5 mg 0.5 mg Q8H PRN IV ANXIETY; Start 02/03/17 at 20:00 Cefepime HCl (Maxipime 2gm/50 ml (Pmx)) 50 ml @ 100 mls/hr Q12 IVPB Last administered on 02/05/17 09:26; Admin Dose 100 MLS/HR; Start 02/03/17 at 21:00 Allopurinol (Zyloprim) 100 mg DAILY PO Last administered on 02/04/17 08:15; Admin Dose 100 MG; Start 02/04/17 at 09:00 Aspirin (Halfprin) 81 mg DAILY PO Last administered on 02/04/17 08:15; Admin Dose 81 MG; Start 02/04/17 at 09:00 Cholecalciferol 2000 unit 2,000 unit DAILY PO Last administered on 02/04/17 08 :15; Admin Dose 2,000 UNIT; Start 02/04/17 at 09:00 Vancomycin HCl (Vancocin) 250 ml @ 125 mls/hr Q12H IVPB Last administered on 03:45; Admin Dose 125 MLS/HR; Start 02/04/17 at 04:00 Miscellaneous Information (*Rx Drug Level Order Reminder*) VANCOMYCIN TROUGH AT 1500 ONCE ONCE XX ; Start 02/05/17 at 15:00; Stop 02/05/17 at 15:01 MIKE MILLER Feb 05, 2017 13:34
--- NOTE | 2017-02-05 13:51 | CONS ---
DATE OF ADMISSION: 02/03/2017 DATE OF CONSULTATION: 02/05/2017 TYPE OF CONSULTATION: Infectious Disease. REASON FOR CONSULTATION: Antibiotic management. HISTORY OF PRESENT ILLNESS: Alberto Miller is a 76-year-old male who was admitted with discomfort and inability to sleep and is being seen for antibiotic management. His past problems include: 1. 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 2. Right lower lobe pneumonia, recently diagnosed. The patient had right lower lobe pneumonia appr oximately a month ago or a month and-a-half ago. He came to his primary physician with cough. He wa s seen and treated conservatively, kept coughing. He went to urgent care where he had a chest x-ray , right lower lobe pneumonia, started on Z-ROSALEE. He is found on the 20 of January to have a white cou nt of 32,000. He was on Levaquin, which he finished. White count went down 3 days later to 28,000. A CT scan of the chest was done 5 days prior to admission and he was told he had signs of pneumonia . He had right-sided chest pain. In the emergency room he had a right pleural effusion, possibly und erlying infiltrate. White count again at 33,000. CT scan shows a pleural based multi-loculated fluid collection posteriorly and inferiorly in the rig ht, measuring 12 x 4 x 10 cm with second fluid collection anteriorly and inferiorly on the right austin suring 3 x 5 x 3 cm, findings likely due to empyema, according to CAT scan. The patient had a diagnostic paracentesis on the . On admission, his white count is now 24.9, H and H of 9.9 and 31.2, platelet count 395,000. BUN and creatinine are 14/1.07. Urine is negative for nitrite or leukocyte esterase. A CT scan of the [address] as noted on the showed pleural based but multiloculated fluid collection. A second collecti on inferiorly on the right measuring 3 x 5.3 x 3.5, consistent with empyema. An ultrasound thoracent esis satisfactory ultrasound-guided thoracentesis, thick green fluid aspirated. Surgery consultation was advised. MICROBIOLOGY: Blood cultures are negative. Thoracentesis fluid is pending. HOSPITAL COURSE: The patient was seen by Dr. Kiet Barron of Cardiovascular. The patient has a right- sided empyema. He planned right-sided thoracotomy, pulmonary decortication and flexible bronchoscop y. So the patient is scheduled for a chest tube placement. At the present time he is on vancomycin a nd cefepime. PAST MEDICAL HISTORY: Operations as outlined. FAMILY HISTORY: Noncontributory. PAST SURGICAL HISTORY: 1. Status post left knee ligament repair in the 70s. 2. Status post nasal surgery for skin cancer in the 90s. 3. status post lithotripsy and ureteral stent placement the left kidney in 2008 when he had an epis ode of obstructive uropathy and nephrolithiasis. SOCIAL HISTORY: He does not smoke, drink or abuse drugs. ALLERGIES: NONE TO PENICILLIN, SULFA OR FOODS. MEDICATIONS: Per chart. REVIEW OF SYSTEMS: As per HPI. PHYSICAL EXAMINATION: GENERAL: The patient is alert, responsive, in no acute distress. VITAL SIGNS: Stable. He is afebrile. SKIN: Without generalized rash. HEENT: Within normal limits. NECK: Supple. LYMPH NODES: None palpable. CHEST: Decreased breath sounds at the bases, right greater than left. HEART: Without murmur or gallop. ABDOMEN: Soft, nontender, without organosplenomegaly or masses. EXTREMITIES: Without cyanosis, clubbing, or edema. RECTAL AND GENITAL: Deferred. NEUROLOGIC: No focal neurological abnormalities. IMPRESSION AND PLAN: The patient has a loculated pleural effusion with probable empyema. He is goi ng to undergo a VATS procedure with decortication of lung chest tube placement and antibiotic manage ment, antibiotic therapy. I will dictate my findings to Dr. Patricio as well as to Dr. Barron. Dictated By: REBA RAI MD, JD/JARED Conf#: [id number] DID#: [id number]
--- NOTE | 2017-02-05 15:17 | PN ---
Date/Time of Note Date/Time of Note DATE: 02/05/17 TIME: 15:06 Assessment/Plan VTE Prophylaxis VTE Prophylaxis Intervention: SCD's Lines/Catheters IV [facility]ter [facility] (from [facility] Peripheral IV Urinary Cath still in place: No Assessment/Plan Assessment/Plan 76-year-old male with: 1. Located pleural effusions RLL with thoracentesis c/w empyema and this AM still with significant leukocytosis despite IV abx x 48 hrs at least Appreciate eval from Dr Barron IV abx VATS with decortication this afternoon Dr Baker and Dr Morin following 2. Chronic kidney disease. Must be stage I or II, as the patient's renal function is fairly good currently. Continue IV fluids and renal dose antibiotics as needed. 3. New onset diabetes mellitus versus hyperglycemia related to the underlying inflammatory or infectious process. Hemoglobin A1c is up to 9.0. Continue SSI especially while NPO May benefit from Tradjenta in order to control his blood sugars post op if needed. 4. Hypertension. Normotensive Continue IV fluids and monitor renal function. Prophylaxis. Deep venous thrombosis prophylaxis with heparin SC, on hold for surgical procedure and Protonix for GI prophylaxis. DISPOSITION: VATS and decortication Right Lung by CTS Dr Barron this afternoon Pulmonary and infectious disease following. Subjective 24 Hr Interval Summary Free Text/Dictation Patient in good spirits Plan for VATS this afternoon with Dr Barron for RLL empyema Afebrile but still with significant Leukocytosis Exam/Review of Systems Vital Signs Vitals Vital Signs Date Time Temp Pulse Resp B/P Pulse Ox O2 Delivery O2 Flow Rate FiO2 02/05/17 08:36 99.6 105 20 114/54 95 02/03/17 22:13 Room Air 02/03/17 18:05 21 Intake and Output 02/04/17 02/04/17 02/05/17 15:00 23:00 07:00 Intake Total 50 ml 1100 ml 1275 ml Output Total 1250 ml Balance 50 ml 1100 ml 25 ml Exam Constitutional: alert, oriented, well developed Respiratory: diminished breath sounds (RLL), normal air movement Cardiovascular: nl pulses, regular rate and rhythm Gastrointestinal: non-tender, soft Musculoskeletal: nl extremities to inspection Extremities: normal pulses, other (no edema, clubbing or cyanosis ) Neurological: INSULATION INSTALLER II-XII intact, nl mental status, nl speech, nl strength Results Result Diagram: 02/05/17 0510 02/05/17 0510 Results 24 hrs Laboratory Tests Test 02/04/17 17:12 02/04/17 20:43 02/05/17 03:47 02/05/17 05:10 Bedside Glucose 200 192 135 White Blood Count 24.9 H Red Blood Count 3.54 L Hemoglobin 9.9 L Hematocrit 31.2 L Mean Corpuscular Volume 88.1 Mean Corpuscular Hemoglobin 28.0 L Mean Corpuscular Hemoglobin Concent 31.7 L Red Cell Distribution Width 13.8 Platelet Count 395 Mean Platelet Volume 11.0 H Neutrophils % 85.9 H Lymphocytes % 5.5 L Monocytes % 6.2 Eosinophils % 0.1 Basophils % 0.1 Nucleated Red Blood Cells % 0.0 Neutrophils # 21.4 H Lymphocytes # 1.4 Monocytes # 1.5 H Eosinophils # 0.0 Basophils # 0.0 Nucleated Red Blood Cells # 0.0 Sodium Level 138 Potassium Level 4.1 Chloride Level 102 Carbon Dioxide Level 25 Anion Gap 15 Blood Urea Nitrogen 14 Creatinine 1.07 Glucose Level 137 # Calcium Level 8.5 Phosphorus Level 3.3 Magnesium Level 1.8 Test 02/05/17 09:09 02/05/17 10:47 02/05/17 12:09 Bedside Glucose 172 174 Prothrombin Time 14.9 H Prothrombin Time Ratio 1.2 INR International Normalized Ratio 1.16 Medications Medications Current Medications Sodium Chloride (NS) 1,000 ml @ 150 mls/hr Q6H40M IV Last administered on 02/05t 03:43; Admin Dose 100 MLS/HR; Start 02/03/17 at 19:29 Ondansetron HCl (Zofran Inj) 4 mg Q6H PRN IV NAUSEA AND/OR VOMITING; Start at 19:30 Acetaminophen (Tylenol Tab) 650 mg Q6H PRN PO PAIN LEVEL 1-3 OR FEVER; Start at 19:30 Acetaminophen/ Hydrocodone Bitart ([place] (5/325)) 1 tab Q6H PRN PO MODERATE PAIN LEVEL 4-6; Start 02/03/17 at 19:30 Acetaminophen/ Hydrocodone Bitart ([place] (5/325)) 2 tab Q6H PRN PO SEVERE PAIN LEVEL 7-10; Start 02/03/17 at 19:30 Morphine Sulfate (morphine) 2 mg Q4H PRN IV SEVERE PAIN LEVEL 7-10; Start 02/03 at 19:30 Docusate Sodium (Colace) 100 mg Q12H PRN PO CONSTIPATION; Start 02/03/17 at 19: 30 Magnesium Hydroxide (Milk Of Mag) 30 ml DAILY PRN PO CONSTIPATION; Start at 19:30 Bisacodyl (Dulcolax Supp) 10 mg DAILY PRN [place] CONSTIPATION; Start 02/03/17 at 19 :30 Pantoprazole (Protonix Tab) 40 mg DAILY@06 PO Last administered on 02/04/17 05 :31; Admin Dose 40 MG; Start 02/04/17 at 06:00 Heparin Sodium (Porcine) (Heparin (5000 Units/0.5 ml)) 5,000 unit Q8 SC Last administered on 02/04/17 05:35; Admin Dose 5,000 UNIT; Start 02/03/17 at 22:00 ; Status Future Hold Miscellaneous Information 1 ea NOTE XX ; Start 02/03/17 at 20:00 Glucose (Glutose) 15 gm Q15M PRN PO DECREASED GLUCOSE; Start 02/03/17 at 20:00 Glucose (Glutose) 22.5 gm Q15M PRN PO DECREASED GLUCOSE; Start 02/03/17 at 20: 00 Dextrose (D50w Syringe) 25 ml Q15M PRN IV DECREASED GLUCOSE; Start 02/03/17 at 20:00 Dextrose (D50w Syringe) 50 ml Q15M PRN IV DECREASED GLUCOSE; Start 02/03/17 at 20:00 Glucagon (Glucagen) 1 mg Q15M PRN IM DECREASED GLUCOSE; Start 02/03/17 at 20:00 Glucose (Glutose) 15 gm Q15M PRN BUCCAL DECREASED GLUCOSE; Start 02/03/17 at 20 :00 Lorazepam 0.5 mg 0.5 mg Q8H PRN IV ANXIETY; Start 02/03/17 at 20:00 Cefepime HCl (Maxipime 2gm/50 ml (Pmx)) 50 ml @ 100 mls/hr Q12 IVPB Last administered on 02/05/17 09:26; Admin Dose 100 MLS/HR; Start 02/03/17 at 21:00 Allopurinol (Zyloprim) 100 mg DAILY PO Last administered on 02/04/17 08:15; Admin Dose 100 MG; Start 02/04/17 at 09:00 Aspirin (Halfprin) 81 mg DAILY PO Last administered on 02/04/17 08:15; Admin Dose 81 MG; Start 02/04/17 at 09:00 Cholecalciferol 2000 unit 2,000 unit DAILY PO Last administered on 02/04/17 08 :15; Admin Dose 2,000 UNIT; Start 02/04/17 at 09:00 Vancomycin HCl (Vancocin) 250 ml @ 125 mls/hr Q12H IVPB Last administered on 03:45; Admin Dose 125 MLS/HR; Start 02/04/17 at 04:00 PAULIE DIAZ Feb 05, 2017 15:17
[2017-02-05 15:29] LABS: ADD UMIC YES; URINE BILIRUBIN (Dip) NEGATIVE (NEGATIVE); URINE BLOOD (Dip) TRACE (NEGATIVE); URINE COLOR LT. YELLOW (YELLOW); URINE GLUCOSE (Dip) NEGATIVE (NEGATIVE); URINE KETONES (Dip) 15 (NEGATIVE); URINE LEUKOCYTE ESTERASE (Dip) NEGATIVE (NEGATIVE); URINE NITRITE (Dip) NEGATIVE (NEGATIVE); URINE TOTAL PROTEIN (Dip) NEGATIVE (NEGATIVE); URINE UROBILINOGEN (Dip) 0.2 E.U./dL (0.1-1.0)
[2017-02-05 15:46] LABS: BACTERIA,URINE MANY; SQUAMOUS EPITHELIAL CELL,UR FEW; URINE RBCS 0-2 /HPF (0)
[2017-02-05] MEDS ORDERED: LIDOCAINE 1% (MPF) 30 ML INJ ONE (16:07)
[2017-02-05] MEDS ORDERED: BUPIVACAINE 0.5%/EPI (SDV) 30 ML INJ ONE (16:07)
[2017-02-05] MEDS ORDERED: THROMBIN 5000 UNIT VIAL ONE (16:08)
[2017-02-05] MEDS ORDERED: CEFAZOLIN 1 GM INJ ONE (16:12)
[2017-02-05] MEDS ORDERED: NEOSTIGMINE 3 MG/3 ML SYRINGE ONE (16:12)
[2017-02-05] MEDS ORDERED: ROCURONIUM 50 MG INJ ONE (16:12)
[2017-02-05] MEDS ORDERED: MIDAZOLAM 1 MG/ML 2 ML INJ ONE (16:12)
[2017-02-05] MEDS ORDERED: PROPOFOL 20 ML ONE (16:12)
[2017-02-05] MEDS ORDERED: GLYCOPYRROLATE 0.4 MG INJ ONE (16:12)
[2017-02-05] MEDS ORDERED: DEXAMETHASONE 4 MG/ML 1 ML INJ ONE (16:13)
[2017-02-05] MEDS ORDERED: morphine SULFATE/PF (10 MG/10 ML) INJ ONE (16:13)
[2017-02-05] MEDS ORDERED: FENTAnyl 50 MCG/ML VIAL ONE ×2 (16:13→16:18)
[2017-02-05] MEDS ORDERED: ONDANSETRON 4 MG INJ ONE (16:13)
[2017-02-05] MEDS ORDERED: SURGIFOAM POWDER 1 GM KIT ONE (16:15)
[2017-02-05] MEDS ORDERED: MINERAL OIL LIGHT 10 ML VIAL ONE (16:25)
[2017-02-05] MEDS ORDERED: PHENYLephrine (100 MCG/ML) 5ML SYG ONE (16:40)
[2017-02-05 19:00] VITALS: BP 140/73; PULSE 87; RESP 23
[2017-02-05] MEDS ORDERED: ACETAMINOPHEN 650 MG SUPP PR PRN (19:00)
[2017-02-05] MEDS ORDERED: METOCLOPRAMIDE 10 MG INJ IV PRN (19:00)
[2017-02-05] MEDS ORDERED: ACETAMINOPHEN 325 MG TAB PO PRN (19:00)
[2017-02-05] MEDS ORDERED: HYDROmorphONE 1 MG/ML SYG IV PRN ×6 (19:00→19:30)
[2017-02-05] MEDS ORDERED: IPRATROPIUM (NEB) 0.5 MG/2.5 ML AMP NEB PRN (19:00)
[2017-02-05] MEDS ORDERED: NALBUPHINE HCL (10 MG/1 ML) INJ IV PRN (19:30)
[2017-02-05] MEDS ORDERED: DIPHENHYDRAMINE 50 MG INJ IV PRN ×2 (19:30)
[2017-02-05] MEDS ORDERED: ZOLPIDEM 5 MG TAB PO PRN (19:30)
[2017-02-05] MEDS ORDERED: TRIMETHOBENZAMIDE 100 MG/ML VIAL IM PRN (19:30)
[2017-02-05] MEDS ORDERED: NALOXONE (0.4 MG/ML) INJ IV PRN (19:30)
[2017-02-05] MEDS ORDERED: EPHEDrine SULFATE 50 MG/5 ML SYG IV PRN (19:30)
[2017-02-05] MEDS ORDERED: LABETALOL HCL 20MG INJ IV PRN (19:30)
[2017-02-05] MEDS ORDERED: MEPERIDINE 25 MG INJ IV PRN (19:30)
[2017-02-05] MEDS ORDERED: hydrALAzine 20 MG INJ IV PRN (19:30)
[2017-02-05] MEDS ORDERED: ONDANSETRON 4 MG INJ IV PRN ×2 (19:30)
[2017-02-05] MEDS ORDERED: FENTAnyl 50 MCG/ML VIAL IV PRN ×3 (19:30)
[2017-02-05 19:44] LABS: ADD SCAN DIFF NO
--- NOTE | 2017-02-05 19:46 | OPR ---
DATE OF OPERATION: 02/05/2017 PREOPERATIVE DIAGNOSIS: Right empyema. POSTOPERATIVE DIAGNOSIS: Right empyema. OPERATION PERFORMED: Right thoracotomy with total pulmonary decortication and flexible bronchoscopy . SURGEON: Dutch Barron MD FARM DEMONSTRATOR: DOYLE Contreras ANESTHESIA: Double lumen endotracheal. ANESTHESIOLOGIST: Markell Hernandez MD DESCRIPTION OF PROCEDURE: The patient was brought to the operating room and placed on the operating table in a supine position. After placement of double lumen endotracheal anesthesia, a radial daniel rial line, [place] catheter, compression stockings, the patient was then positioned in the left latera l decubitus position with the right arm supported by a bath blanket. The right chest was prepped an d draped with ChloraPrep and entered through a posterior lateral thoracotomy in approximately the 6t h intercostal space. The right lung was deflated. The lung was densely adherent to the chest wall and slow careful dissection I was able to tease the lung off of the chest wall. Gross purulent pus pockets were encountered posteriorly and along the diaphragmatic surface. The patient appeared to h ave an abscess between the lung and in the posterior costophrenic recess. Multiple parenchymal air leaks were encountered during the decortication process. The right upper lobe was gently teased off of the chest wall successfully. The fissure was also opened up slightly between the right upper an d right lower lobes. Lung was intermittently reinflated and reinflation was fair to good. The deco rtication was performed by utilizing [place] periosteal elevator to pull off the fibrin from the visce ral pleural surface. The dissection was slow, tedious, and bloody. After the lung was decorticated , the lung was reexpanded. The right pleural space was copiously irrigated with saline solution. T wo 32 straight chest tubes were placed into the pleural space and secured to the skin with Ethibond suture. Interrupted looped 0 PDS sutures used to approximate the ribs, 0 PDS suture used to approxi mate the latissimus dorsi and serratus fibers, 3-0 Vicryl subcutaneous by interrupted nylon closure of the skin. Sponge counts were correct. The patient was placed in the supine position and fiberop tic bronchoscopy was performed through the double lumen tube. The bronchoscope was inserted through the right lumen, and the right main stem bronchus appeared normal. Right upper lobe was normal and ____ tight. Bronchus intermedius, right middle lobe, and right lower lobe subsequent bronchi appea red normal. The bronchoscope was then inserted into the left side of the endotracheal tube, and the left upper and left lower lobe subsegmental bronchi appeared normal. Bronchoscopic washings were o btained for culture and sensitivity. The bronchoscope was then removed. The patient is taken to [facility] intensive care unit in critical condition. Dictated By: DUTCH HURST/NTS Conf#: [id number] DID#: [id number] CC: PAULA DOMINGUEZ MD; PAULIE DIAZ MD; REBA RAI MD;*[facility]*
[2017-02-05] MEDS: morphine 2 MG INJ IV PRN (19:47)
[2017-02-05 19:58] LABS: ALBUMIN 2.2 g/dl (3.3-4.9); POTASSIUM 4.1 mmol/L (3.5-5.1)
[2017-02-05 19:59] LABS: ABNORMAL IP MESSAGE 1; BASOPHILS % 0.2 % (0.0-2.0); HEMATOCRIT 27.2 % (42.0-52.0); HEMOGLOBIN 8.7 g/dl (14.0-18.0); LYMPHOCYTES # 0.5 10^3/ul (0.8-2.9); LYMPHOCYTES % 1.8 % (15.0-51.0); MEAN CORPUSCULAR HEMOGLOBIN 28.2 pg (29.0-33.0); MEAN PLATELET VOLUME 10.9 fl (7.4-10.4); MONOCYTES % 3.8 % (0.0-11.0); NEUTROPHILS % 90.2 % (39.0-77.0); PLATELET COUNT 336 10^3/UL (140-415); RED BLOOD COUNT 3.09 10^6/ul (4.70-6.10); RED CELL DISTRIBUTION WIDTH 13.9 % (11.5-14.5); WHITE BLOOD COUNT 26.6 10^3/ul (4.8-10.8)
[2017-02-05 20:00] VITALS: BP 104/53; PULSE 80; PULSE 81; RESP 15
[2017-02-05 20:00] LABS: BILIRUBIN,INDIRECT 0.3 mg/dl (0-1.1); BILIRUBIN,TOTAL 0.3 mg/dl (0.2-1.3); CREATININE 0.8 mg/dl (0.61-1.24)
[2017-02-05 20:01] LABS: ALBUMIN/GLOBULIN RATIO 0.7; CALCIUM 7.7 mg/dl (8.4-10.2); MAGNESIUM 1.5 mg/dl (1.7-2.5); TOTAL PROTEIN 5.3 g/dl (6.1-8.1)
--- NOTE | 2017-02-05 20:08 | RADRPT ---
PROCEDURE: XR Chest. CLINICAL INDICATION: Shortness of breath. TECHNIQUE: Single frontal view. COMPARISON: 02/04/2017. FINDINGS: There are to new right chest tubes in satisfactory position. There is right basilar air space disea se, worse than seen previously. The left lung is clear. The heart is enlarged. There is no pleural effusion. There is no pneumothorax. IMPRESSION: 1. Satisfactory position in the right chest tubes. 2. Worse appearance of the right lung base. RPTAT: QQ .Kyle Vizcarra MD, MD Date Time Electronically viewed and signed by .Kyle Vizcarra MD, MD on 02/05/2017 20:08 .R/
[2017-02-05] MEDS: ALBUTEROL/IPRATROPIUM (NEB) 3 ML AMP NEB SCH (20:10)
[2017-02-05] MEDS: D5W-0.45 NACL + KCL 20 MEQ 1,000 ML IV SCH (20:20)
[2017-02-05] MEDS: FAMOTIDINE 20 MG TAB PO SCH (20:21)
[2017-02-05 21:00] VITALS: BP 122/67; PULSE 88; RESP 10
[2017-02-05 22:00] VITALS: BP 108/55; PULSE 83; RESP 19
[2017-02-05 23:00] VITALS: BP 103/52; PULSE 73; RESP 20
[2017-02-06] VITALS (60 sets, daily range): BP systolic 88–118; BP diastolic 27–97; PULSE 66–108; RESP 8–32
[2017-02-06] MEDS ORDERED: MAGNESIUM SULFATE 2 GM/50 ML 50 ML IVPB ONE
[2017-02-06] MEDS: morphine 2 MG INJ IV PRN (00:30)
[2017-02-06] MEDS: ALBUTEROL/IPRATROPIUM (NEB) 3 ML AMP NEB SCH ×6 (01:40→20:34)
[2017-02-06] MEDS: ZOLPIDEM 5 MG TAB PO PRN ×2 (02:00→23:51)
[2017-02-06] MEDS: D5W-0.45 NACL + KCL 20 MEQ 1,000 ML IV SCH (02:53)
[2017-02-06 04:33] LABS: ADD SCAN DIFF NO
[2017-02-06 04:42] LABS: ABNORMAL IP MESSAGE 1; BASOPHILS % 0.1 % (0.0-2.0); HEMATOCRIT 24.1 % (42.0-52.0); HEMOGLOBIN 7.6 g/dl (14.0-18.0); LYMPHOCYTES # 0.3 10^3/ul (0.8-2.9); LYMPHOCYTES % 1.3 % (15.0-51.0); MEAN CORPUSCULAR HEMOGLOBIN 28.1 pg (29.0-33.0); MEAN CORPUSCULAR HGB CONC 31.5 g/dl (32.0-37.0); MEAN CORPUSCULAR VOLUME 89.3 fl (82.0-101.0); MONOCYTE # 1.3 10^3/ul (0.3-0.9); MONOCYTES % 5.2 % (0.0-11.0); NEUTROPHIL # 22.7 10^3/ul (1.6-7.5); PLATELET COUNT 262 10^3/UL (140-415); WHITE BLOOD COUNT 24.8 10^3/ul (4.8-10.8)
[2017-02-06 04:47] LABS: POTASSIUM 4.2 mmol/L (3.5-5.1)
[2017-02-06] MEDS: VANCOMYCIN 1 GM in NS 250 ML IVPB SCH ×2 (04:48→17:53)
[2017-02-06 04:50] LABS: CREATININE 0.86 mg/dl (0.61-1.24)
[2017-02-06 04:51] LABS: CALCIUM 7.5 mg/dl (8.4-10.2); MAGNESIUM 2.3 mg/dl (1.7-2.5); PHOSPHORUS 5.2 mg/dl (2.5-4.9)
[2017-02-06 04:56] LABS: NEUTROPHILS % 91.6 % (39.0-77.0)
[2017-02-06] MEDS ORDERED: ACETAMINOPHEN 500 MG TAB PO ONE (05:33)
[2017-02-06] MEDS ORDERED: DIPHENHYDRAMINE 50 MG INJ IV ONE (06:00)
[2017-02-06 06:01] LABS: Arterial Base Excess -6.5 mmol/L (-3.0-3); Arterial COHb 0.3 % (0.0-3.0); Arterial Fraction of Oxyhgb 96.2 % (93.0-99.0); Arterial HCO3 18.5 mmol/L (22.0-26.0); Arterial MetHb 0.5 % (0.0-1.5); Arterial Total Hemglobin 8.5 g/dl (12.0-18.0); MODE NASAL CANNULA
[2017-02-06] MEDS: PANTOPRAZOLE (EC) 40 MG TAB PO SCH (06:42)
[2017-02-06] MEDS: INSULIN ASPART [NOVOLOG] 3 ML PEN SC SCH ×4 (08:17→21:55)
[2017-02-06] MEDS: FAMOTIDINE 20 MG TAB PO SCH ×2 (08:19→20:52)
[2017-02-06] MEDS: ALLOPURINOL 100 MG TAB PO SCH (08:19)
[2017-02-06] MEDS: CHOLECALCIFEROL 2,000 UNIT CAP PO SCH (08:19)
[2017-02-06] MEDS: ASPIRIN (EC) 81 MG TAB PO SCH (08:19)
--- NOTE | 2017-02-06 09:27 | CONS ---
Date/Time of Note Date/Time of Note DATE: 02/06/17 TIME: 09:25 Assessment/Plan Assessment/Plan Additional Assessment/Plan Assessment recommendations; 1. Patient admitted for right-sided empyema status post VATS procedure yesterday. 2. History of gout. Continue current treatment. Patient will transfer to the medical floor. Consultation Date/Type/Reason Admit Date/Time Feb 03, 2017 at 19:13 Initial Consult Date 02/05/17 Type of Consultation: Pulmonary 24 HR Interval Summary Free Text/Dictation Patient condition is stable. Underwent right-sided VATS procedure for empyema. Patient denies any shortness of breath comfortable minimal chest pain. Denies any coughing, wheezing, sputum production.. General exam; elderly male, awake alert currently in no distress. Exam/Review of Systems Vital Signs Vitals Vital Signs Date Time Temp Pulse Resp B/P Pulse Ox O2 Delivery O2 Flow Rate FiO2 02/06/17 09:00 93 17 114/36 91 Nasal Cannula 02/06/17 08:15 97.5 02/06/17 05:10 2.0 27 Intake and Output 02/05/17 02/05/17 02/06/17 15:00 23:00 07:00 Intake Total 50 ml 5425 ml 1125 ml Output Total 1460 ml 440 ml Balance 50 ml 3965 ml 685 ml Exam HEENT examination; supple neck, no JVD. No lymphadenopathy. Midline trachea. No thyromegaly. Pupils are midsize reactive to light. Extraocular movements are intact. Pharynx is clear, patient has good dentition. Chest examination; head laceration bilaterally right side chest tube in place. S1-S2 audible, no murmurs. Regular rhythm. Abdomen examination; soft, nontender nondistended no organomegaly bowel sounds audible. Extremity exam; no peripheral edema. SKILL TRAINING PROGRAM COORDINATOR examination; no focal deficit. Results Result Diagram: 02/06/17 0400 02/06/17 0400 Results 24 hrs Laboratory Tests Test 02/05/17 10:47 02/05/17 12:09 02/05/17 14:00 02/05/17 15:00 Prothrombin Time 14.9 H Prothrombin Time Ratio 1.2 INR International Normalized Ratio 1.16 Activated Partial Thromboplast Time 42.0 H Bedside Glucose 174 Urine Color LT. YELLOW Urine Clarity SLIGHTLY CLOUDY Urine pH 5.5 Urine Specific [place] >=1.030 H Urine Ketones 15 Urine Nitrite NEGATIVE Urine Bilirubin NEGATIVE Urine Urobilinogen 0.2 E.U./dL Urine Leukocyte Esterase NEGATIVE Urine Microscopic RBC 0-2 Urine Microscopic WBC 0-2 Urine Squamous Epithelial Cells FEW Urine Bacteria MANY Urine Hemoglobin TRACE Urine Glucose NEGATIVE Urine Total Protein NEGATIVE Vancomycin Level Trough 14.0 Test 02/05/17 19:40 02/05/17 20:34 02/06/17 04:00 02/06/17 06:00 White Blood Count 26.6 H 24.8 H Red Blood Count 3.09 L 2.70 L Hemoglobin 8.7 L 7.6 L Hematocrit 27.2 L 24.1 L Mean Corpuscular Volume 88.0 89.3 Mean Corpuscular Hemoglobin 28.2 L 28.1 L Mean Corpuscular Hemoglobin Concent 32.0 31.5 L Red Cell Distribution Width 13.9 14.0 Platelet Count 336 262 # Mean Platelet Volume 10.9 H 11.0 H Neutrophils % 90.2 H 91.6 H Lymphocytes % 1.8 L 1.3 L Monocytes % 3.8 5.2 Eosinophils % 0.0 0.0 Basophils % 0.2 0.1 Nucleated Red Blood Cells % 0.0 0.0 Neutrophils # 24.0 H 22.7 H Lymphocytes # 0.5 L 0.3 L Monocytes # 1.0 H 1.3 H Eosinophils # 0.0 0.0 Basophils # 0.0 0.0 Nucleated Red Blood Cells # 0.0 0.0 Sodium Level 135 136 Potassium Level 4.1 4.2 Chloride Level 102 105 Carbon Dioxide Level 22 21 Anion Gap 15 14 Blood Urea Nitrogen 13 15 Creatinine 0.80 0.86 Glucose Level 199 244 H Calcium Level 7.7 L 7.5 L Magnesium Level 1.5 L 2.3 Total Bilirubin 0.3 Direct Bilirubin 0.00 Indirect Bilirubin 0.3 Aspartate Amino Transf (AST/SGOT) 30 Alanine Aminotransferase (ALT/SGPT) 57 Alkaline Phosphatase 88 Total Protein 5.3 L Albumin 2.2 L Globulin 3.10 Albumin/Globulin Ratio 0.70 Bedside Glucose 214 Phosphorus Level 5.2 H Blood Gas Specimen Source Blood arterial Arterial Blood Date Drawn 02/06/2017 5:50:00 AM Arterial Blood pH (Temp corrected) 7.343 L Arterial Blood pCO2 (Temp correct) 34.9 L Arterial Blood pO2 (Temp corrected) 108.5 H Arterial Blood HCO3 18.5 L Arterial Blood Base Excess -6.5 L Arterial Blood Oxygen Saturation 97.0 Reji Test N/A Arterial Blood Gas Puncture Site A-Line Arterial Blood Carboxyhemoglobin 0.3 Arterial Blood Methemoglobin 0.5 Blood Gas A-a O2 Differential 50.0 H Oxyhemoglobin Percent 96.2 Total Hemoglobin 8.5 L Blood Gas Temperature 37.0 Blood Gas Modality NASAL CANNULA FiO2 28.0 Blood Gas Notified Whom MA Blood Gas Notified Time 02/06/2017 6:00:00 AM Test 02/06/17 08:14 Bedside Glucose 322 H Medications Medications Current Medications Ondansetron HCl (Zofran Inj) 4 mg Q6H PRN IV NAUSEA AND/OR VOMITING; Start at 19:30 Acetaminophen (Tylenol Tab) 650 mg Q6H PRN PO PAIN LEVEL 1-3 OR FEVER; Start at 19:30 Acetaminophen/ Hydrocodone Bitart ([place] (5/325)) 1 tab Q6H PRN PO MODERATE PAIN LEVEL 4-6; Start 02/03/17 at 19:30 Acetaminophen/ Hydrocodone Bitart ([place] (5/325)) 2 tab Q6H PRN PO SEVERE PAIN LEVEL 7-10; Start 02/03/17 at 19:30 Morphine Sulfate (morphine) 2 mg Q4H PRN IV SEVERE PAIN LEVEL 7-10 Last administered on 02/06/17 00:30; Admin Dose 2 MG; Start 02/03/17 at 19:30 Docusate Sodium (Colace) 100 mg Q12H PRN PO CONSTIPATION; Start 02/03/17 at 19: 30 Magnesium Hydroxide (Milk Of Mag) 30 ml DAILY PRN PO CONSTIPATION; Start at 19:30 Bisacodyl (Dulcolax Supp) 10 mg DAILY PRN IN CONSTIPATION; Start 02/03/17 at 19 :30 Pantoprazole (Protonix Tab) 40 mg DAILY@06 PO Last administered on 02/06/17 06 :42; Admin Dose 40 MG; Start 02/04/17 at 06:00 Heparin Sodium (Porcine) (Heparin (5000 Units/0.5 ml)) 5,000 unit Q8 SC Last administered on 02/04/17 05:35; Admin Dose 5,000 UNIT; Start 02/03/17 at 22:00 ; Status Future Hold Miscellaneous Information 1 ea NOTE XX ; Start 02/03/17 at 20:00 Glucose (Glutose) 15 gm Q15M PRN PO DECREASED GLUCOSE; Start 02/03/17 at 20:00 Glucose (Glutose) 22.5 gm Q15M PRN PO DECREASED GLUCOSE; Start 02/03/17 at 20: 00 Dextrose (D50w Syringe) 25 ml Q15M PRN IV DECREASED GLUCOSE; Start 02/03/17 at 20:00 Dextrose (D50w Syringe) 50 ml Q15M PRN IV DECREASED GLUCOSE; Start 02/03/17 at 20:00 Glucagon (Glucagen) 1 mg Q15M PRN IM DECREASED GLUCOSE; Start 02/03/17 at 20:00 Glucose (Glutose) 15 gm Q15M PRN BUCCAL DECREASED GLUCOSE; Start 02/03/17 at 20 :00 Lorazepam 0.5 mg 0.5 mg Q8H PRN IV ANXIETY; Start 02/03/17 at 20:00 Cefepime HCl (Maxipime 2gm/50 ml (Pmx)) 50 ml @ 100 mls/hr Q12 IVPB Last administered on 02/05/17 21:56; Admin Dose 100 MLS/HR; Start 02/03/17 at 21:00 Allopurinol (Zyloprim) 100 mg DAILY PO Last administered on 02/06/17 08:19; Admin Dose 100 MG; Start 02/04/17 at 09:00 Aspirin (Halfprin) 81 mg DAILY PO Last administered on 02/06/17 08:19; Admin Dose 81 MG; Start 02/04/17 at 09:00 Cholecalciferol 2000 unit 2,000 unit DAILY PO Last administered on 02/06/17 08 :19; Admin Dose 2,000 UNIT; Start 02/04/17 at 09:00 Vancomycin HCl 250 ml @ 125 mls/hr Q12H IVPB Last administered on 02/06/17 04 :48; Admin Dose 125 MLS/HR; Start 02/04/17 at 04:00 Potassium Chloride/Dextrose/ Sod Cl (D5-1/2ns + KCl 20 Meq) 1,000 ml @ 125 mls/ hr Q8H IV Last administered on 02/05/17 20:20; Admin Dose 125 MLS/HR; Start at 18:53 Metoclopramide HCl (Reglan) 10 mg Q6H PRN IV NAUSEA AND/OR VOMITING; Start at 19:00 Acetaminophen (Tylenol Tab) 650 mg Q6H PRN PO PAIN LEVEL 1-3 OR FEVER; Start at 19:00 Acetaminophen (Tylenol Supp) 650 mg Q4H PRN IN PAIN LEVEL 1-3 OR FEVER; Start 02/05/17 at 19:00 Famotidine (Pepcid) 20 mg Q12 PO Last administered on 02/06/17t 08:19; Admin Dose 20 MG; Start 02/05/17 at 21:00 Hydromorphone HCl (Dilaudid) 0.5 mg Q2H PRN IV PAIN LEVEL 1-5; Start 02/05/17 at 19:30; Stop 02/06/17 at 19:35 Hydromorphone HCl (Dilaudid) 1 mg Q2H PRN IV PAIN LEVEL 6-10; Start 02/05/17 at 19:30; Stop 02/06/17 at 19:35 Diphenhydramine HCl (Benadryl) 25 mg Q4H PRN IV PRURITUS; Start 02/05/17 at 19: 30 Nalbuphine HCl (Nubain) 10 mg Q4H PRN IV PRURITUS; Start 02/05/17 at 19:30; Stop 02/06/17 at 19:35 Ondansetron HCl (Zofran Inj) 4 mg Q6H PRN IV NAUSEA AND/OR VOMITING; Start at 19:30; Stop 02/06/17 at 19:35 Naloxone HCl (Narcan) 0.2 mg Q2M PRN IV FOR RESP RATE 8 OR LESS; Start at 19:30; Stop 02/06/17 at 19:35 Hydromorphone HCl (Dilaudid) 0.5 mg Q4H PRN IV PAIN LEVEL 7-10; Start 02/06/17 at 20:00 MIKE MILLER Feb 06, 2017 09:27
--- NOTE | 2017-02-06 09:41 | PN ---
Date/Time of Note Date/Time of Note DATE: 02/06/17 TIME: 09:29 Assessment/Plan VTE Prophylaxis VTE Prophylaxis Intervention: SCD's Lines/Catheters IV Catheter Type (from Nrsg): Peripheral IV Urinary Cath still in place: Yes Reason Cath still needed: other (indicate) (monitor UOP ) Assessment/Plan Assessment/Plan 76-year-old male with: 1. RLL Empyema s/p VATS with decortication and chest tube placement POD#1, on RA Doing well on RA, still with leukocytosis, continue current abx while awaiting cx results Anemia post op, getting 1unit pRBC D/c IVF and A line Transfer to Telemetry. Dr Baker and Dr Morin following 2. Post op Anemia, Hb down to 7.6. S/p 1 units pRBC this AM 3. Chronic kidney disease. Must be stage I or II, as the patient's renal function is fairly good currently. D/c IVF as patient tolerating po well. 4. New onset diabetes mellitus versus hyperglycemia related to the underlying inflammatory or infectious process. Hemoglobin A1c is up to 9.0. Continue SSI Appreciate recommendations from early childhood educator aide BG up this AM while on D5 IVF, d/c IVF, ADA diet and start Tradjenta and see if will help with BG control. 5. Hypertension. Normotensive. Start BP med if needed Prophylaxis. SCDs for DVT ppx and Protonix for GI prophylaxis. DISPOSITION: POD# 1 s/p VATS and decortication Right Lung by CTS Dr Barron, transfer to Telemetry today, Ok per Pulmonary and will notify CTS Pulmonary and infectious disease following. Exam/Review of Systems Vital Signs Vitals Vital Signs Date Time Temp Pulse Resp B/P Pulse Ox O2 Delivery O2 Flow Rate FiO2 02/06/17 09:00 93 17 114/36 91 Nasal Cannula 02/06/17 08:15 97.5 02/06/17 05:10 2.0 27 Intake and Output 02/05/17 02/05/17 02/06/17 15:00 23:00 07:00 Intake Total 50 ml 5425 ml 1125 ml Output Total 1460 ml 440 ml Balance 50 ml 3965 ml 685 ml Exam Constitutional: alert, oriented, well developed Respiratory: diminished breath sounds (RLL), normal air movement Cardiovascular: nl pulses, regular rate and rhythm Gastrointestinal: non-tender, soft Musculoskeletal: nl extremities to inspection Extremities: normal pulses, other (no edema, clubbing or cyanosis ) Neurological: AMPHIBIOUS OPERATIONS OFFICER II-XII intact, nl mental status, nl speech, nl strength Results Result Diagram: 02/06/17 0400 02/06/17 0400 Results 24 hrs Laboratory Tests Test 02/05/17 10:47 02/05/17 12:09 02/05/17 14:00 02/05/17 15:00 Prothrombin Time 14.9 H Prothrombin Time Ratio 1.2 INR International Normalized Ratio 1.16 Activated Partial Thromboplast Time 42.0 H Bedside Glucose 174 Urine Color LT. YELLOW Urine Clarity SLIGHTLY CLOUDY Urine pH 5.5 Urine Specific [place] >=1.030 H Urine Ketones 15 Urine Nitrite NEGATIVE Urine Bilirubin NEGATIVE Urine Urobilinogen 0.2 E.U./dL Urine Leukocyte Esterase NEGATIVE Urine Microscopic RBC 0-2 Urine Microscopic WBC 0-2 Urine Squamous Epithelial Cells FEW Urine Bacteria MANY Urine Hemoglobin TRACE Urine Glucose NEGATIVE Urine Total Protein NEGATIVE Vancomycin Level Trough 14.0 Test 02/05/17 19:40 02/05/17 20:34 02/06/17 04:00 02/06/17 06:00 White Blood Count 26.6 H 24.8 H Red Blood Count 3.09 L 2.70 L Hemoglobin 8.7 L 7.6 L Hematocrit 27.2 L 24.1 L Mean Corpuscular Volume 88.0 89.3 Mean Corpuscular Hemoglobin 28.2 L 28.1 L Mean Corpuscular Hemoglobin Concent 32.0 31.5 L Red Cell Distribution Width 13.9 14.0 Platelet Count 336 262 # Mean Platelet Volume 10.9 H 11.0 H Neutrophils % 90.2 H 91.6 H Lymphocytes % 1.8 L 1.3 L Monocytes % 3.8 5.2 Eosinophils % 0.0 0.0 Basophils % 0.2 0.1 Nucleated Red Blood Cells % 0.0 0.0 Neutrophils # 24.0 H 22.7 H Lymphocytes # 0.5 L 0.3 L Monocytes # 1.0 H 1.3 H Eosinophils # 0.0 0.0 Basophils # 0.0 0.0 Nucleated Red Blood Cells # 0.0 0.0 Sodium Level 135 136 Potassium Level 4.1 4.2 Chloride Level 102 105 Carbon Dioxide Level 22 21 Anion Gap 15 14 Blood Urea Nitrogen 13 15 Creatinine 0.80 0.86 Glucose Level 199 244 H Calcium Level 7.7 L 7.5 L Magnesium Level 1.5 L 2.3 Total Bilirubin 0.3 Direct Bilirubin 0.00 Indirect Bilirubin 0.3 Aspartate Amino Transf (AST/SGOT) 30 Alanine Aminotransferase (ALT/SGPT) 57 Alkaline Phosphatase 88 Total Protein 5.3 L Albumin 2.2 L Globulin 3.10 Albumin/Globulin Ratio 0.70 Bedside Glucose 214 Phosphorus Level 5.2 H Blood Gas Specimen Source Blood arterial Arterial Blood Date Drawn 02/06/2017 5:50:00 AM Arterial Blood pH (Temp corrected) 7.343 L Arterial Blood pCO2 (Temp correct) 34.9 L Arterial Blood pO2 (Temp corrected) 108.5 H Arterial Blood HCO3 18.5 L Arterial Blood Base Excess -6.5 L Arterial Blood Oxygen Saturation 97.0 Reji Test N/A Arterial Blood Gas Puncture Site A-Line Arterial Blood Carboxyhemoglobin 0.3 Arterial Blood Methemoglobin 0.5 Blood Gas A-a O2 Differential 50.0 H Oxyhemoglobin Percent 96.2 Total Hemoglobin 8.5 L Blood Gas Temperature 37.0 Blood Gas Modality NASAL CANNULA FiO2 28.0 Blood Gas Notified Whom MA Blood Gas Notified Time 02/06/2017 6:00:00 AM Test 02/06/17 08:14 Bedside Glucose 322 H Medications Medications Current Medications Ondansetron HCl (Zofran Inj) 4 mg Q6H PRN IV NAUSEA AND/OR VOMITING; Start at 19:30 Acetaminophen (Tylenol Tab) 650 mg Q6H PRN PO PAIN LEVEL 1-3 OR FEVER; Start at 19:30 Acetaminophen/ Hydrocodone Bitart ([place] (5/325)) 1 tab Q6H PRN PO MODERATE PAIN LEVEL 4-6; Start 02/03/17 at 19:30 Acetaminophen/ Hydrocodone Bitart ([place] (5/325)) 2 tab Q6H PRN PO SEVERE PAIN LEVEL 7-10; Start 02/03/17 at 19:30 Morphine Sulfate (morphine) 2 mg Q4H PRN IV SEVERE PAIN LEVEL 7-10 Last administered on 02/06/17t 00:30; Admin Dose 2 MG; Start 02/03/17 at 19:30 Docusate Sodium (Colace) 100 mg Q12H PRN PO CONSTIPATION; Start 02/03/17 at 19: 30 Magnesium Hydroxide (Milk Of Mag) 30 ml DAILY PRN PO CONSTIPATION; Start at 19:30 Bisacodyl (Dulcolax Supp) 10 mg DAILY PRN [place] CONSTIPATION; Start 02/03/17 at 19 :30 Pantoprazole (Protonix Tab) 40 mg DAILY@06 PO Last administered on 02/06/17 06 :42; Admin Dose 40 MG; Start 02/04/17 at 06:00 Heparin Sodium (Porcine) (Heparin (5000 Units/0.5 ml)) 5,000 unit Q8 SC Last administered on 02/04/17 05:35; Admin Dose 5,000 UNIT; Start 02/03/17 at 22:00 ; Status Future Hold Miscellaneous Information 1 ea NOTE XX ; Start 02/03/17 at 20:00 Glucose (Glutose) 15 gm Q15M PRN PO DECREASED GLUCOSE; Start 02/03/17 at 20:00 Glucose (Glutose) 22.5 gm Q15M PRN PO DECREASED GLUCOSE; Start 02/03/17 at 20: 00 Dextrose (D50w Syringe) 25 ml Q15M PRN IV DECREASED GLUCOSE; Start 02/03/17 at 20:00 Dextrose (D50w Syringe) 50 ml Q15M PRN IV DECREASED GLUCOSE; Start 02/03/17 at 20:00 Glucagon (Glucagen) 1 mg Q15M PRN IM DECREASED GLUCOSE; Start 02/03/17 at 20:00 Glucose (Glutose) 15 gm Q15M PRN BUCCAL DECREASED GLUCOSE; Start 02/03/17 at 20 :00 Lorazepam 0.5 mg 0.5 mg Q8H PRN IV ANXIETY; Start 02/03/17 at 20:00 Cefepime HCl (Maxipime 2gm/50 ml (Pmx)) 50 ml @ 100 mls/hr Q12 IVPB Last administered on 02/05/17 21:56; Admin Dose 100 MLS/HR; Start 02/03/17 at 21:00 Allopurinol (Zyloprim) 100 mg DAILY PO Last administered on 02/06/17 08:19; Admin Dose 100 MG; Start 02/04/17 at 09:00 Aspirin (Halfprin) 81 mg DAILY PO Last administered on 02/06/17 08:19; Admin Dose 81 MG; Start 02/04/17 at 09:00 Cholecalciferol 2000 unit 2,000 unit DAILY PO Last administered on 02/06/17 08 :19; Admin Dose 2,000 UNIT; Start 02/04/17 at 09:00 Vancomycin HCl 250 ml @ 125 mls/hr Q12H IVPB Last administered on 02/06/17 04 :48; Admin Dose 125 MLS/HR; Start 02/04/17 at 04:00 Potassium Chloride/Dextrose/ Sod Cl (D5-1/2ns + KCl 20 Meq) 1,000 ml @ 125 mls/ hr Q8H IV Last administered on 02/05/17 20:20; Admin Dose 125 MLS/HR; Start at 18:53 Metoclopramide HCl (Reglan) 10 mg Q6H PRN IV NAUSEA AND/OR VOMITING; Start at 19:00 Acetaminophen (Tylenol Tab) 650 mg Q6H PRN PO PAIN LEVEL 1-3 OR FEVER; Start at 19:00 Acetaminophen (Tylenol Supp) 650 mg Q4H PRN [place] PAIN LEVEL 1-3 OR FEVER; Start 02/05/17 at 19:00 Famotidine (Pepcid) 20 mg Q12 PO Last administered on 02/06/17 08:19; Admin Dose 20 MG; Start 02/05/17 at 21:00 Hydromorphone HCl (Dilaudid) 0.5 mg Q2H PRN IV PAIN LEVEL 1-5; Start 02/05/17 at 19:30; Stop 02/06/17 at 19:35 Hydromorphone HCl (Dilaudid) 1 mg Q2H PRN IV PAIN LEVEL 6-10; Start 02/05/17 at 19:30; Stop 02/06/17 at 19:35 Diphenhydramine HCl (Benadryl) 25 mg Q4H PRN IV PRURITUS; Start 02/05/17 at 19: 30 Nalbuphine HCl (Nubain) 10 mg Q4H PRN IV PRURITUS; Start 02/05/17 at 19:30; Stop 02/06/17 at 19:35 Ondansetron HCl (Zofran Inj) 4 mg Q6H PRN IV NAUSEA AND/OR VOMITING; Start at 19:30; Stop 02/06/17 at 19:35 Naloxone HCl (Narcan) 0.2 mg Q2M PRN IV FOR RESP RATE 8 OR LESS; Start at 19:30; Stop 02/06/17 at 19:35 Hydromorphone HCl (Dilaudid) 0.5 mg Q4H PRN IV PAIN LEVEL 7-10; Start 02/06/17 at 20:00 PAULIE DIZA Feb 06, 2017 09:41
[2017-02-06] MEDS: CEFEPIME 2GM/50 ML (PMX) 50 ML IVPB SCH ×2 (10:59→20:52)
[2017-02-06] MEDS: LINAGLIPTIN 5 MG TABLET PO SCH (11:39)
--- NOTE | 2017-02-06 12:14 | PN ---
DATE: 02/06/2017 SUBJECTIVE: No acute changes. The patient is alert, feels better, looks comfortable. No fevers. VITAL SIGNS: Temperature 97.5, pulse 80, respirations 16, blood pressure 97/58, saturation 100% on room air. LABORATORY DATA: WBC 24.8, H and H 7.6 and 24.1, platelets 262, neutrophils 91.6. BUN 15, creatini ne 0.86. INDWELLINGS: Right radial A-line, chest tube, [place] catheter. ANTIMICROBIALS: The patient remains on: 1. Vancomycin. 2. Cefepime. PHYSICAL EXAMINATION: GENERAL: This is a well-developed elderly man who is alert, in no distress. HEENT: Head atraumatic, normocephalic. Sclerae anicteric. Buccal mucosa dry. NECK: Supple. CHEST: Rise symmetrical. Breath sounds diminished to bases. ABDOMEN: Soft. Bowel sounds present. EXTREMITIES: Without cyanosis. ASSESSMENT: 1. Systemic inflammatory response syndrome with persistent leukocytosis secondary to #2. 2. Right empyema, status post thoracotomy with total pulmonary decortication and chest tube placeme nt. 3. Chronic kidney disease. 4. Diabetes. PLAN: The patient remains stable on appropriate antimicrobials. Intraoperative cultures pending. Continue present care. Follow thoracic surgery recommendations. Dictated By: BALDEV RASMUSSEN INSTRUMENT OPERATOR for REBA FRIED/JARED Conf#: [id number] DID#: [id number]
[2017-02-06] MEDS ORDERED: SOD CHLORIDE 0.9% 250 ML IV* ONE (12:47)
--- NOTE | 2017-02-06 14:03 | PN ---
Date/Time of Note Date/Time of Note DATE: 02/06/17 TIME: 14:00 Assessment/Plan VTE Prophylaxis VTE Prophylaxis Intervention: ambulation, anti-embolic stocking, LMWH Lines/Catheters IV [facility] Type (from [facility]): Peripheral IV Urinary Cath still in place: No Assessment/Plan Assessment/Plan Feels well. Extubated. Getting 2 units blood. CXR shows R lower chest consolidation and haziness. WBC down. No air leak. Eating well. Waiting for transfer. DC petersen Exam/Review of Systems Vital Signs Vitals Vital Signs Date Time Temp Pulse Resp B/P Pulse Ox O2 Delivery O2 Flow Rate FiO2 02/06/17 13:45 92 28 99/38 96 Room Air 02/06/17 13:34 21 02/06/17 12:00 97.5 02/06/17 05:10 2.0 Intake and Output 02/05/17 02/05/17 02/06/17 15:00 23:00 07:00 Intake Total 50 ml 5425 ml 1375 ml Output Total 1460 ml 460 ml Balance 50 ml 3965 ml 915 ml Results Result Diagram: 02/06/17 0400 02/06/17 0400 Results 24 hrs Laboratory Tests Test 02/05/17 15:00 02/05/17 19:40 02/05/17 20:34 02/06/17 04:00 Vancomycin Level Trough 14.0 White Blood Count 26.6 H 24.8 H Red Blood Count 3.09 L 2.70 L Hemoglobin 8.7 L 7.6 L Hematocrit 27.2 L 24.1 L Mean Corpuscular Volume 88.0 89.3 Mean Corpuscular Hemoglobin 28.2 L 28.1 L Mean Corpuscular Hemoglobin Concent 32.0 31.5 L Red Cell Distribution Width 13.9 14.0 Platelet Count 336 262 # Mean Platelet Volume 10.9 H 11.0 H Neutrophils % 90.2 H 91.6 H Lymphocytes % 1.8 L 1.3 L Monocytes % 3.8 5.2 Eosinophils % 0.0 0.0 Basophils % 0.2 0.1 Nucleated Red Blood Cells % 0.0 0.0 Neutrophils # 24.0 H 22.7 H Lymphocytes # 0.5 L 0.3 L Monocytes # 1.0 H 1.3 H Eosinophils # 0.0 0.0 Basophils # 0.0 0.0 Nucleated Red Blood Cells # 0.0 0.0 Sodium Level 135 136 Potassium Level 4.1 4.2 Chloride Level 102 105 Carbon Dioxide Level 22 21 Anion Gap 15 14 Blood Urea Nitrogen 13 15 Creatinine 0.80 0.86 Glucose Level 199 244 H Calcium Level 7.7 L 7.5 L Magnesium Level 1.5 L 2.3 Total Bilirubin 0.3 Direct Bilirubin 0.00 Indirect Bilirubin 0.3 Aspartate Amino Transf (AST/SGOT) 30 Alanine Aminotransferase (ALT/SGPT) 57 Alkaline Phosphatase 88 Total Protein 5.3 L Albumin 2.2 L Globulin 3.10 Albumin/Globulin Ratio 0.70 Bedside Glucose 214 Phosphorus Level 5.2 H Test 02/06/17 06:00 02/06/17 08:14 02/06/17 11:41 Blood Gas Specimen Source Blood arterial Arterial Blood Date Drawn 02/06/2017 5:50:00 AM Arterial Blood pH (Temp corrected) 7.343 L Arterial Blood pCO2 (Temp correct) 34.9 L Arterial Blood pO2 (Temp corrected) 108.5 H Arterial Blood HCO3 18.5 L Arterial Blood Base Excess -6.5 L Arterial Blood Oxygen Saturation 97.0 Reji Test N/A Arterial Blood Gas Puncture Site A-Line Arterial Blood Carboxyhemoglobin 0.3 Arterial Blood Methemoglobin 0.5 Blood Gas A-a O2 Differential 50.0 H Oxyhemoglobin Percent 96.2 Total Hemoglobin 8.5 L Blood Gas Temperature 37.0 Blood Gas Modality NASAL CANNULA FiO2 28.0 Blood Gas Notified Whom MA Blood Gas Notified Time 02/06/2017 6:00:00 AM Bedside Glucose 322 H 297 H Medications Medications Current Medications Ondansetron HCl (Zofran Inj) 4 mg Q6H PRN IV NAUSEA AND/OR VOMITING; Start at 19:30 Acetaminophen (Tylenol Tab) 650 mg Q6H PRN PO PAIN LEVEL 1-3 OR FEVER; Start at 19:30 Acetaminophen/ Hydrocodone Bitart ([place] (5/325)) 1 tab Q6H PRN PO MODERATE PAIN LEVEL 4-6; Start 02/03/17 at 19:30 Acetaminophen/ Hydrocodone Bitart ([place] (5/325)) 2 tab Q6H PRN PO SEVERE PAIN LEVEL 7-10; Start 02/03/17 at 19:30 Docusate Sodium (Colace) 100 mg Q12H PRN PO CONSTIPATION; Start 02/03/17 at 19: 30 Magnesium Hydroxide (Milk Of Mag) 30 ml DAILY PRN PO CONSTIPATION; Start at 19:30 Bisacodyl (Dulcolax Supp) 10 mg DAILY PRN [place] CONSTIPATION; Start 02/03/17 at 19 :30 Pantoprazole (Protonix Tab) 40 mg DAILY@06 PO Last administered on 02/06/17 06 :42; Admin Dose 40 MG; Start 02/04/17 at 06:00 Miscellaneous Information 1 ea NOTE XX ; Start 02/03/17 at 20:00 Glucose (Glutose) 15 gm Q15M PRN PO DECREASED GLUCOSE; Start 02/03/17 at 20:00 Glucose (Glutose) 22.5 gm Q15M PRN PO DECREASED GLUCOSE; Start 02/03/17 at 20: 00 Dextrose (D50w Syringe) 25 ml Q15M PRN IV DECREASED GLUCOSE; Start 02/03/17 at 20:00 Dextrose (D50w Syringe) 50 ml Q15M PRN IV DECREASED GLUCOSE; Start 02/03/17 at 20:00 Glucagon (Glucagen) 1 mg Q15M PRN IM DECREASED GLUCOSE; Start 02/03/17 at 20:00 Glucose (Glutose) 15 gm Q15M PRN BUCCAL DECREASED GLUCOSE; Start 02/03/17 at 20 :00 Lorazepam 0.5 mg 0.5 mg Q8H PRN IV ANXIETY; Start 02/03/17 at 20:00 Cefepime HCl (Maxipime 2gm/50 ml (Pmx)) 50 ml @ 100 mls/hr Q12 IVPB Last administered on 02/06/17 10:59; Admin Dose 100 MLS/HR; Start 02/03/17 at 21:00 Allopurinol (Zyloprim) 100 mg DAILY PO Last administered on 02/06/17 08:19; Admin Dose 100 MG; Start 02/04/17 at 09:00 Aspirin (Halfprin) 81 mg DAILY PO Last administered on 02/06/17 08:19; Admin Dose 81 MG; Start 02/04/17 at 09:00 Cholecalciferol 2000 unit 2,000 unit DAILY PO Last administered on 02/06/17 08 :19; Admin Dose 2,000 UNIT; Start 02/04/17 at 09:00 Vancomycin HCl (Vancocin) 250 ml @ 125 mls/hr Q12H IVPB Last administered on 04:48; Admin Dose 125 MLS/HR; Start 02/04/17 at 04:00 Metoclopramide HCl (Reglan) 10 mg Q6H PRN IV NAUSEA AND/OR VOMITING; Start at 19:00 Famotidine (Pepcid) 20 mg Q12 PO Last administered on 02/06/17 08:19; Admin Dose 20 MG; Start 02/05/17 at 21:00 Hydromorphone HCl (Dilaudid) 0.5 mg Q2H PRN IV PAIN LEVEL 1-5; Start 02/05/17 at 19:30; Stop 02/06/17 at 19:35 Hydromorphone HCl (Dilaudid) 1 mg Q2H PRN IV PAIN LEVEL 6-10; Start 02/05/17 at 19:30; Stop 02/06/17 at 19:35 Diphenhydramine HCl (Benadryl) 25 mg Q4H PRN IV PRURITUS; Start 02/05/17 at 19: 30 Nalbuphine HCl (Nubain) 10 mg Q4H PRN IV PRURITUS; Start 02/05/17 at 19:30; Stop 02/06/17 at 19:35 Naloxone HCl (Narcan) 0.2 mg Q2M PRN IV FOR RESP RATE 8 OR LESS; Start at 19:30; Stop 02/06/17 at 19:35 Linagliptin (Tradjenta) 5 mg DAILY PO Last administered on 02/06/17 11:39; Admin Dose 5 MG; Start 02/06/17 at 10:00 SHONNA WAN MD Feb 06, 2017 14:03
[2017-02-06] MEDS ORDERED: HYDROmorphONE 1 MG/ML SYG IV PRN (20:00)
[2017-02-06] MEDS: HYDROCODONE/APAP (5/325) TAB PO PRN ×2 (20:09→21:53)
[2017-02-06 20:32] LABS: HEMATOCRIT 31.4 % (42.0-52.0); HEMOGLOBIN 10.2 g/dl (14.0-18.0)
[2017-02-07] VITALS (13 sets, daily range): BP systolic 113–140; BP diastolic 48–64; PULSE 98–134; RESP 18
[2017-02-07] MEDS: ALBUTEROL/IPRATROPIUM (NEB) 3 ML AMP NEB SCH ×6 (00:53→20:21)
[2017-02-07] MEDS: VANCOMYCIN 1 GM in NS 250 ML IVPB SCH ×2 (03:50→15:57)
[2017-02-07] MEDS: HYDROCODONE/APAP (5/325) TAB PO PRN ×3 (04:23→22:58)
[2017-02-07] MEDS: PANTOPRAZOLE (EC) 40 MG TAB PO SCH (06:08)
--- NOTE | 2017-02-07 06:30 | PN ---
Date/Time of Note Date/Time of Note DATE: 02/07/17 TIME: 06:29 Assessment/Plan Lines/Catheters IV Catheter Type (from Nrs): Saline Lock [place] in Place (from Nrs): No Assessment/Plan Assessment/Plan doing well, not much drainage, no air leak. place chest tube to water seal. cxr tomorrow Exam/Review of Systems Vital Signs Vitals Vital Signs Date Time Temp Pulse Resp B/P Pulse Ox O2 Delivery O2 Flow Rate FiO2 02/07/17 04:42 103 02/07/17 04:26 18 92 Nasal Cannula 3.0 02/07/17 04:20 98.9 132/48 02/07/17 00:57 21 Intake and Output 02/06/17 02/06/17 02/07/17 15:00 23:00 07:00 Intake Total 1010 ml 470 ml Output Total 400 ml 135 ml Balance 610 ml 335 ml Results Result Diagram: 02/06/17201902/06/17 0400 TRINITY ARGUETA MD Feb 07, 2017 06:30
[2017-02-07] MEDS ORDERED: INSULIN GLARGINE [LANtus] 3 ML PEN SC ONE (07:00)
--- NOTE | 2017-02-07 07:03 | PN ---
Date/Time of Note Date/Time of Note DATE: 02/07/17 TIME: 06:40 Assessment/Plan VTE Prophylaxis VTE Prophylaxis Intervention: SCD's Lines/Catheters IV C[facility] Type (from [facility] Saline Lock Urinary Cath still in place: No Assessment/Plan Assessment/Plan [facility] 1. 76-year-old man who presented four days ago with a right lower lobe empyema, now POD 2 s/p VATS with decortication and chest tube placement. Breathing comfortably, with frequent shallow coughing, on room air. Leukocytosis persisted yesterday, with WBC 24.8k/ul. Labs pending today. Blood and pleural fluid cultures negative so far. Hct stable (31% last night), after receiving 1 unit pRBC pos-operatively. * Continue vancomycin and Cefepime. * Discussed with Dr. Negrete * Portable CXR pending * Dr Baker and Dr Morin following 2. Nutrition. Eating better. 3. "Pre-diabetes" since 2004, diet-controlled normally. HgbA1c 9.0%, so more of a problem than he realized. Sugars have been 200s-300s since surgery. * Start this morning on Lantus 12u now * Novolog 4u before meals * Monitor sugars * Continue Tradjenta, started in the hospital * Discontinue sliding scale insulin 4. Hypertensive, and 132/78 this morning. * Monitor for now 5. Prophylaxis. SCDs for DVT prevention and Protonix for GI prophylaxis. 6. DISPOSITION: Dr. Negrete anticipates chest tube out tomorrow, if continued progress. Pulmonary and Infectious Disease following. CXR pending this morning. Cuba Yanes MD PhD [phone] Subjective 24 Hr Interval Summary Free Text/Dictation Difficulty clearing phlegm when he coughs, with persistent mild pain at the chest tube insertion site. Decreased appetite. Difficulty sleeping. No other pain complaints. Exam/Review of Systems Vital Signs Vitals Vital Signs Date Time Temp Pulse Resp B/P Pulse Ox O2 Delivery O2 Flow Rate FiO2 02/07/17 04:42 103 02/07/17 04:26 18 92 Nasal Cannula 3.0 02/07/17 04:20 98.9 132/48 02/07/17 00:57 21 Intake and Output 02/06/17 02/06/17 02/07/17 15:00 23:00 07:00 Intake Total 1010 ml 470 ml Output Total 400 ml 135 ml Balance 610 ml 335 ml Exam Constitutional: Alert, young-appearing, well developed Respiratory: Clear lungs bilaterally, though with reduced inspiration. Mild upper airway rhonchi. Right chest tube in place, with minimal serosanguinous drainage. Cardiovascular: Symmetric pulses, regular rhythm and normal rate, no murmur. Gastrointestinal: non-tender, soft, no HSM. Musculoskeletal: nl extremities to inspection, with no edema, clubbing or cyanosis Neurological: Oriented, conversant, philosophical affect, cranial nerves intact , normal speech, intact motor and light touch sensation, toes downgoing. Results Result Diagram: 02/06/17201902/06/17399 Results 24 hrs Laboratory Tests Test 02/06/17 08:14 02/06/17 11:41 02/06/17 17:57 02/06/17 20:20 Bedside Glucose 322 H 297 H 284 H Hemoglobin 10.2 #L Hematocrit 31.4 #L Test 02/06/17 20:54 02/07/17 03:59 Bedside Glucose 244 H 266 H Medications Medications Current Medications Ondansetron HCl (Zofran Inj) 4 mg Q6H PRN IV NAUSEA AND/OR VOMITING; Start at 19:30 Acetaminophen (Tylenol Tab) 650 mg Q6H PRN PO PAIN LEVEL 1-3 OR FEVER; Start at 19:30 Acetaminophen/ Hydrocodone Bitart ([place] (5/325)) 1 tab Q6H PRN PO MODERATE PAIN LEVEL 4-6 Last administered on 02/07/17t 04:23; Admin Dose 1 TAB; Start at 19:30 Acetaminophen/ Hydrocodone Bitart ([place] (5/325)) 2 tab Q6H PRN PO SEVERE PAIN LEVEL 7-10; Start 02/03/17 at 19:30 Docusate Sodium (Colace) 100 mg Q12H PRN PO CONSTIPATION; Start 02/03/17 at 19: 30 Magnesium Hydroxide (Milk Of Mag) 30 ml DAILY PRN PO CONSTIPATION; Start at 19:30 Bisacodyl (Dulcolax Supp) 10 mg DAILY PRN [place] CONSTIPATION; Start 02/03/17 at 19 :30 Pantoprazole (Protonix Tab) 40 mg DAILY@06 PO Last administered on 02/07/17 06 :08; Admin Dose 40 MG; Start 02/04/17 at 06:00 Miscellaneous Information 1 ea NOTE XX ; Start 02/03/17 at 20:00 Glucose (Glutose) 15 gm Q15M PRN PO DECREASED GLUCOSE; Start 02/03/17 at 20:00 Glucose (Glutose) 22.5 gm Q15M PRN PO DECREASED GLUCOSE; Start 02/03/17 at 20: 00 Dextrose (D50w Syringe) 25 ml Q15M PRN IV DECREASED GLUCOSE; Start 02/03/17 at 20:00 Dextrose (D50w Syringe) 50 ml Q15M PRN IV DECREASED GLUCOSE; Start 02/03/17 at 20:00 Glucagon (Glucagen) 1 mg Q15M PRN IM DECREASED GLUCOSE; Start 02/03/17 at 20:00 Glucose (Glutose) 15 gm Q15M PRN BUCCAL DECREASED GLUCOSE; Start 02/03/17 at 20 :00 Lorazepam 0.5 mg 0.5 mg Q8H PRN IV ANXIETY; Start 02/03/17 at 20:00 Cefepime HCl (Maxipime 2gm/50 ml (Pmx)) 50 ml @ 100 mls/hr Q12 IVPB Last administered on 02/06/17 20:52; Admin Dose 100 MLS/HR; Start 02/03/17 at 21:00 Allopurinol (Zyloprim) 100 mg DAILY PO Last administered on 02/06/17 08:19; Admin Dose 100 MG; Start 02/04/17 at 09:00 Aspirin (Halfprin) 81 mg DAILY PO Last administered on 02/06/17 08:19; Admin Dose 81 MG; Start 02/04/17 at 09:00 Cholecalciferol 2000 unit 2,000 unit DAILY PO Last administered on 02/06/17 08 :19; Admin Dose 2,000 UNIT; Start 02/04/17 at 09:00 Vancomycin HCl (Vancocin) 250 ml @ 125 mls/hr Q12H IVPB Last administered on 03:50; Admin Dose 125 MLS/HR; Start 02/04/17 at 04:00 Metoclopramide HCl (Reglan) 10 mg Q6H PRN IV NAUSEA AND/OR VOMITING; Start at 19:00 Famotidine (Pepcid) 20 mg Q12 PO Last administered on 02/06/17 20:52; Admin Dose 20 MG; Start 02/05/17 at 21:00 Diphenhydramine HCl (Benadryl) 25 mg Q4H PRN IV PRURITUS; Start 02/05/17 at 19: 30 Linagliptin (Tradjenta) 5 mg DAILY PO Last administered on 02/06/17 11:39; Admin Dose 5 MG; Start 02/06/17 at 10:00 CAMILA YANES M.D. Feb 07, 2017 06:50
[2017-02-07 08:33] LABS: ADD SCAN DIFF NO
[2017-02-07 08:46] LABS: ABNORMAL IP MESSAGE 1; BASOPHIL # 0.1 10^3/ul (0.0-0.1); BASOPHILS % 0.2 % (0.0-2.0); HEMATOCRIT 29.4 % (42.0-52.0); HEMOGLOBIN 9.8 g/dl (14.0-18.0); LYMPHOCYTES # 0.5 10^3/ul (0.8-2.9); LYMPHOCYTES % 1.9 % (15.0-51.0); MEAN CORPUSCULAR HEMOGLOBIN 28.8 pg (29.0-33.0); MEAN CORPUSCULAR HGB CONC 33.3 g/dl (32.0-37.0); MEAN CORPUSCULAR VOLUME 86.5 fl (82.0-101.0); MEAN PLATELET VOLUME 10.9 fl (7.4-10.4); MONOCYTE # 1.7 10^3/ul (0.3-0.9); MONOCYTES % 6.4 % (0.0-11.0); NEUTROPHIL # 23.7 10^3/ul (1.6-7.5); NEUTROPHILS % 89.1 % (39.0-77.0); PLATELET COUNT 354 10^3/UL (140-415); RED CELL DISTRIBUTION WIDTH 14.3 % (11.5-14.5); WHITE BLOOD COUNT 26.5 10^3/ul (4.8-10.8)
[2017-02-07] MEDS: LINAGLIPTIN 5 MG TABLET PO SCH (08:48)
[2017-02-07] MEDS: ASPIRIN (EC) 81 MG TAB PO SCH (08:48)
[2017-02-07] MEDS: ALLOPURINOL 100 MG TAB PO SCH (08:48)
[2017-02-07] MEDS: FAMOTIDINE 20 MG TAB PO SCH ×2 (08:48→20:34)
[2017-02-07] MEDS: CEFEPIME 2GM/50 ML (PMX) 50 ML IVPB SCH ×2 (08:53→20:34)
[2017-02-07 09:01] LABS: POTASSIUM 3.6 mmol/L (3.5-5.1)
[2017-02-07] MEDS: INSULIN ASPART [NOVOLOG] 3 ML PEN SC SCH ×3 (09:01→18:13)
[2017-02-07 09:03] LABS: CREATININE 1.05 mg/dl (0.61-1.24)
[2017-02-07 09:04] LABS: CALCIUM 7.7 mg/dl (8.4-10.2)
[2017-02-07 09:06] LABS: MAGNESIUM 2.1 mg/dl (1.7-2.5); PHOSPHORUS 2.6 mg/dl (2.5-4.9)
--- NOTE | 2017-02-07 11:15 | RADRPT ---
PROCEDURE: XR Chest. CLINICAL INDICATION: 76-year-old male with right pleural effusion. TECHNIQUE: Single frontal view of the chest was obtained COMPARISON: Chest x-ray 02/05/2017 07:16 p.m. FINDINGS: The soft tissues are normal. Two right-sided thoracostomy tubes remain in place. There is a subpul daljit right pleural effusion which is unchanged with atelectasis and infiltrate in the right middle and right lower lobe areas. The the left ventricle is enlarged. The cardiomediastinal silhouette a nd hilar structures are normal. The pulmonary vasculature is normal. There is a left-sided aorta. T here is increased density projecting through the left heart partially silhouetting the medial aspect of the left diaphragm. no acute bony fracture is identified. The left costophrenic angle is obscur ed. IMPRESSION: 1. Right middle lobe, right lower lobe and left lower lobe infiltrates and atelectasis associated wi th a subpulmonic right pleural effusion. 2. Stable positioning of 2 right-sided thoracostomy tubes with no evidence of a pneumothorax. 3. Left ventricular enlargement. RPTAT:AAJJ Physician Suzy Date Time Electronically viewed and signed by Physician Suzy on 02/07/2017 11:14 /
[2017-02-07] MEDS: CHOLECALCIFEROL 2,000 UNIT CAP PO SCH (12:30)
--- NOTE | 2017-02-07 17:04 | CONS ---
Date/Time of Note Date/Time of Note DATE: 02/07/17 TIME: 17:04 Assessment/Plan Assessment/Plan Chief Complaint/Hosp Course ID PROGRESS NOTE CURRENT ABX=> Vanco IV + Cefepime POD #2-> s/p VATS 02/05 24H INTERVAL SUMMARY * Resting, no fevers, VSS, NAD, * Thora 02/04 pleural fluid 3+ GPC * Lung Tissue 02/05 PRELIMINARY: Jamar: 02/05/17-1734 Rcvd: 02/05/17-1839 GRAM STAIN Final POLYMORPH. LEUKOCYTE RARE GRAM POSITIVE COCCI RARE BODY FLUID CULTURE Preliminary No growth after 2 days & (-) anaerobes PHYSICAL EXAMINATION: GENERAL:VSS, NAD HEENT: Unremarkable NECK: Supple, trachea midline. CHEST: Rise symmetrical, without dyspnea on observation / CT HEART: Pulse RRR ABDOMEN: soft EXTREMITIES: Warm ID ASSESSMENT 76 yo M admit with: 1. Systemic inflammatory response syndrome with persistent leukocytosis secondary to #2. 2. Right empyema, status post 02/05/17 thoracotomy with total pulmonary decortication and chest tube placement. 3. Chronic kidney disease. 4. Diabetes II w/A1c 9.0% (-)MRSA Nares INVASIVES: PIV ABX ALLERGY: KNDA CURRENT ABX: => Vanco IV + Cefepime ID RECOMMENDATIONS 1. Continue current ABX 2. f/u on final micro results pending . Problems: Consultation Date/Type/Reason Admit Date/Time Feb 03, 2017 at 19:13 Initial Consult Date 02/05/17 Type of Consultation: ID Exam/Review of Systems Vital Signs Vitals Vital Signs Date Time Temp Pulse Resp B/P Pulse Ox O2 Delivery O2 Flow Rate FiO2 02/07/17 16:38 98.0 105 18 135/63 98 02/07/17 16:28 Nasal Cannula 3.0 02/07/17 00:57 21 Intake and Output 02/06/17 02/06/17 02/07/17 15:00 23:00 07:00 Intake Total 1010 ml 470 ml 330 ml Output Total 400 ml 135 ml 125 ml Balance 610 ml 335 ml 205 ml Results Result Diagram: 02/07/17 0710 02/07/17 0710 Results 24 hrs Laboratory Tests Test 02/06/17 17:57 02/06/17 20:20 02/06/17 20:54 02/07/17 03:59 Bedside Glucose 284 H 244 H 266 H Hemoglobin 10.2 #L Hematocrit 31.4 #L Test 02/07/17 07:10 02/07/17 07:51 02/07/17 11:35 White Blood Count 26.5 H Red Blood Count 3.40 #L Hemoglobin 9.8 L Hematocrit 29.4 L Mean Corpuscular Volume 86.5 Mean Corpuscular Hemoglobin 28.8 L Mean Corpuscular Hemoglobin Concent 33.3 Red Cell Distribution Width 14.3 Platelet Count 354 # Mean Platelet Volume 10.9 H Neutrophils % 89.1 H Lymphocytes % 1.9 L Monocytes % 6.4 Eosinophils % 0.0 Basophils % 0.2 Nucleated Red Blood Cells % 0.0 Neutrophils # 23.7 H Lymphocytes # 0.5 L Monocytes # 1.7 H Eosinophils # 0.0 Basophils # 0.1 Nucleated Red Blood Cells # 0.0 Sodium Level 135 Potassium Level 3.6 Chloride Level 104 Carbon Dioxide Level 22 Anion Gap 13 Blood Urea Nitrogen 17 Creatinine 1.05 Glucose Level 263 H Calcium Level 7.7 L Phosphorus Level 2.6 # Magnesium Level 2.1 Bedside Glucose 302 H 252 H Medications Medications Current Medications Ondansetron HCl (Zofran Inj) 4 mg Q6H PRN IV NAUSEA AND/OR VOMITING; Start at 19:30 Acetaminophen (Tylenol Tab) 650 mg Q6H PRN PO PAIN LEVEL 1-3 OR FEVER; Start at 19:30 Acetaminophen/ Hydrocodone Bitart ([place] (5/325)) 1 tab Q6H PRN PO MODERATE PAIN LEVEL 4-6 Last administered on 02/07/17 04:23; Admin Dose 1 TAB; Start at 19:30 Acetaminophen/ Hydrocodone Bitart ([place] (5/325)) 2 tab Q6H PRN PO SEVERE PAIN LEVEL 7-10 Last administered on 02/07/17 08:53; Admin Dose 2 TAB; Start at 19:30 Docusate Sodium (Colace) 100 mg Q12H PRN PO CONSTIPATION; Start 02/03/17 at 19: 30 Magnesium Hydroxide (Milk Of Mag) 30 ml DAILY PRN PO CONSTIPATION; Start at 19:30 Bisacodyl (Dulcolax Supp) 10 mg DAILY PRN [place] CONSTIPATION; Start 02/03/17 at 19 :30 Pantoprazole (Protonix Tab) 40 mg DAILY@06 PO Last administered on 02/07/17 06 :08; Admin Dose 40 MG; Start 02/04/17 at 06:00 Miscellaneous Information 1 ea NOTE XX ; Start 02/03/17 at 20:00 Glucose (Glutose) 15 gm Q15M PRN PO DECREASED GLUCOSE; Start 02/03/17 at 20:00 Glucose (Glutose) 22.5 gm Q15M PRN PO DECREASED GLUCOSE; Start 02/03/17 at 20: 00 Dextrose (D50w Syringe) 25 ml Q15M PRN IV DECREASED GLUCOSE; Start 02/03/17 at 20:00 Dextrose (D50w Syringe) 50 ml Q15M PRN IV DECREASED GLUCOSE; Start 02/03/17 at 20:00 Glucagon (Glucagen) 1 mg Q15M PRN IM DECREASED GLUCOSE; Start 02/03/17 at 20:00 Glucose (Glutose) 15 gm Q15M PRN BUCCAL DECREASED GLUCOSE; Start 02/03/17 at 20 :00 Lorazepam 0.5 mg 0.5 mg Q8H PRN IV ANXIETY; Start 02/03/17 at 20:00 Cefepime HCl (Maxipime 2gm/50 ml (Pmx)) 50 ml @ 100 mls/hr Q12 IVPB Last administered on 02/07/17 08:53; Admin Dose 100 MLS/HR; Start 02/03/17 at 21:00 Allopurinol (Zyloprim) 100 mg DAILY PO Last administered on 02/07/17 08:48; Admin Dose 100 MG; Start 02/04/17 at 09:00 Aspirin (Halfprin) 81 mg DAILY PO Last administered on 02/07/17 08:48; Admin Dose 81 MG; Start 02/04/17 at 09:00 Cholecalciferol 2000 unit 2,000 unit DAILY PO Last administered on 02/07/17 12 :30; Admin Dose 2,000 UNIT; Start 02/04/17 at 09:00 Vancomycin HCl (Vancocin) 250 ml @ 125 mls/hr Q12H IVPB Last administered on 15:57; Admin Dose 125 MLS/HR; Start 02/04/17 at 04:00 Metoclopramide HCl (Reglan) 10 mg Q6H PRN IV NAUSEA AND/OR VOMITING; Start at 19:00 Famotidine (Pepcid) 20 mg Q12 PO Last administered on 02/07/17 08:48; Admin Dose 20 MG; Start 02/05/17 at 21:00 Diphenhydramine HCl (Benadryl) 25 mg Q4H PRN IV PRURITUS; Start 02/05/17 at 19: 30 Linagliptin (Tradjenta) 5 mg DAILY PO Last administered on 02/07/17 08:48; Admin Dose 5 MG; Start 02/06/17 at 10:00 Miscellaneous Information (*Rx Drug Level Order Reminder*) VANCOMYCIN TROUGH AT 0300 ONCE ONCE XX ; Start 02/08/17 at 03:00; Stop 02/08/17 at 03:01 AZEB BERNAL NP Feb 07, 2017 17:04
[2017-02-07] MEDS: ZOLPIDEM 5 MG TAB PO PRN (22:57)
[2017-02-08] VITALS (13 sets, daily range): BP systolic 142–189; BP diastolic 66–89; PULSE 101–128; RESP 18–19
[2017-02-08] MEDS: ALBUTEROL/IPRATROPIUM (NEB) 3 ML AMP NEB SCH ×6 (00:33→21:09)
[2017-02-08 04:22] LABS: CREATININE 0.89 mg/dl (0.61-1.24)
[2017-02-08] MEDS: VANCOMYCIN 1 GM in NS 250 ML IVPB SCH (04:47)
[2017-02-08] MEDS: PANTOPRAZOLE (EC) 40 MG TAB PO SCH (04:47)
--- NOTE | 2017-02-08 07:39 | PN ---
Date/Time of Note Date/Time of Note DATE: 02/08/17 TIME: 07:37 Assessment/Plan Lines/Catheters IV Catheter Type (from [facility]): Saline Lock [place] in Place (from [facility]): No Assessment/Plan Assessment/Plan cxr yesterday shows increasing opacity at right base and WBC still elevated. concerned about loculated effusion. will order ct chest without contrast. leave chest tubes for now Exam/Review of Systems Vital Signs Vitals Vital Signs Date Time Temp Pulse Resp B/P Pulse Ox O2 Delivery O2 Flow Rate FiO2 02/08/17 04:36 107 95 Nasal Cannula 3.0 02/08/17 04:19 98.2 18 189/84 02/07/17 00:57 21 Intake and Output 02/07/17 02/07/17 02/08/17 15:00 23:00 07:00 Intake Total 750 ml Output Total 1000 ml Balance -250 ml Results Result Diagram: 02/07/17 0710 02/08/17 0351 TRINITY ARGUETA MD Feb 08, 2017 07:39
[2017-02-08] MEDS: INSULIN ASPART [NOVOLOG] 3 ML PEN SC SCH ×3 (08:00→17:50)
--- NOTE | 2017-02-08 11:41 | RADRPT ---
PROCEDURE: CT Chest without contrast. CLINICAL INDICATION: rule out loculated effusion TECHNIQUE: CT scan of the chest without contrast was performed on a multidetector high-resolution CT scanner. Coronal and sagittal reformatted images were obtained from the axial source images. The total exam CTDI equals 15 mGy and the total exam DLP equals 591 mGy-cm. COMPARISON: CT chest February 03, 2017 FINDINGS: There has been interval insertion of 2 right chest tubes with near complete evacuation of previously noted loculated collection in the right pleural space. Small residual collection is seen deep in t he costophrenic recess and anterior to the right middle lobe. There is a tiny right-sided pneumotho rax. There is dense consolidation in the posterior segment of the right upper lobe which was not se en on the prior study. Atelectasis is present on the inferior aspect of the right middle lobe more prominent than on prior study and there has been interval development of near complete right lower l obe collapse. There is now near complete left lower lobe collapse with a small effusion. There are visible but nonpathologically enlarged mediastinal and hilar nodes. A tiny pericardial effusion is seen. Thoracic aorta is normal with no aneurysm. No upper abdominal or adrenal masses present. There is cholelithiasis. IMPRESSION: Near complete evacuation of loculated right pleural collection following insertion of [address] tubes. Small residual posterior collection and the anterior collection. Tiny apical pneumothora x. Interval development of dense consolidation posterior segment right upper lobe - rule out pneumonia. Interval development of near-complete bilateral lower lobe collapse with progression of atelectasis inferior segment right middle lobe. Interval development small left pleural effusion. Tiny pericardial effusion. Cholelithiasis. .Shmuel Cross MD, MD Date Time Electronically viewed and signed by .Shmuel Cross MD, MD on 02/08/2017 11:41 .A/
[2017-02-08] MEDS: FAMOTIDINE 20 MG TAB PO SCH ×2 (11:52→20:14)
[2017-02-08] MEDS: ASPIRIN (EC) 81 MG TAB PO SCH (11:52)
[2017-02-08] MEDS: ALLOPURINOL 100 MG TAB PO SCH (11:52)
[2017-02-08] MEDS: CEFEPIME 2GM/50 ML (PMX) 50 ML IVPB SCH (11:52)
[2017-02-08] MEDS: LINAGLIPTIN 5 MG TABLET PO SCH (11:52)
--- NOTE | 2017-02-08 12:13 | PN ---
Date/Time of Note Date/Time of Note DATE: 02/08/17 TIME: 11:58 Assessment/Plan VTE Prophylaxis VTE Prophylaxis Intervention: SCD's Lines/Catheters IV C[facility]ter Type (from [facility]): Saline Lock Urinary Cath still in place: No Assessment/Plan Assessment/Plan [facility] 1. 76-year-old man who presented five days ago with a right lower lobe empyema, now POD 3 s/p VATS with decortication and chest tube placement. Breathing comfortably, less coughing today, on room air. But more tachycardic, possibly related to poor PO intake. Leukocytosis persisted yesterday, with WBC 26.5k/ ul. Labs pending today. Blood and pleural fluid cultures negative so far. Hct stable (29.4% last night), after receiving 1 unit pRBC pos-operatively. CT scan this morning showed near complete evacuation of loculated right pleural collection following surgery and placement of the chest tubes. He had only a small residual posterior collection and the anterior collection, with a "tiny apical pneumothorax." But there was interval development of dense consolidation in the posterior segment of the right upper lobe and "near- complete bilateral lower lobe collapse with progression of atelectasis" in the inferior segment of the right middle lobe. Also reported was interval development of a small left pleural effusion and a tiny pericardial effusion. * Discussed with Cherry Mistry ONLINE SERVICES MANAGER (ID), with concerns about more active pneumonia manifest by oxygen requirement, diaphoresis, tachycardia, leukocytosis , and the right upper and middle lobe infiltrates. * Will discontinue cefepime and start on meropenem q12h * Continue vancomycin. * Discussed with Dr. Negrete, who will come this afternoon to remove the chest tubes. * This will allow greater mobility for the patient, and I encouraged him to begin walking, sitting up to take his meals, and using the incentive spirometer. 2. Tachycardia -- mild apparent dehydration * Recheck labs * Will give him a liter of 1/2-NS + 10mEq K 3. Type II diabetes, with HgbA1c of 9.0%, and sustained blood sugar elevations here in the hospital. Took metformin briefly in the past, but stopped due to concerns about his renal function. Tolerating Tradjenta now. * Will increase Lantus to 15u tonight * Continue Novolog 4u before meals * Monitor sugars * Continue Tradjenta, started in the hospital * No sliding scale insulin, due to its obscurring the real insulin requirements while we're adjusting his insulin dosing. * Anticipate continuing insulin outside the hospital, with Endocrinology referral. 4. Hypertensive, at 151/68 this morning. * Monitor for now 5. Prophylaxis. SCDs for DVT prevention and Protonix for GI prophylaxis. 6. DISPOSITION: Chest tubes out this afternoon. Pulmonary and Infectious Disease input appreciated. Cuba Yanes MD PhD [phone] Subjective 24 Hr Interval Summary Free Text/Dictation Doing better today, but very anxious to have chest tubes removed. Less cough and upper airway congestion. No nausea or other pain. Too anxious, he said, to eat breakfast this morning. Had CT chest this morning. Exam/Review of Systems Vital Signs Vitals Vital Signs Date Time Temp Pulse Resp B/P Pulse Ox O2 Delivery O2 Flow Rate FiO2 02/08/17 11:14 Nasal Cannula 2.0 02/08/17 08:05 117 02/08/17 07:48 98.0 18 151/68 98 02/07/17 00:57 21 Intake and Output 02/07/17 02/07/17 02/08/17 15:00 23:00 07:00 Intake Total 750 ml Output Total 1000 ml Balance -250 ml Exam Constitutional: Alert, mildly diaphoretic but not febrile, no respiratory distress on room air. Respiratory: Clear lungs bilaterally, though with reduced air movement. Mild upper airway rhonchi. Right chest tubes in place, with minimal serosanguinous drainage. Cardiovascular: Symmetric pulses, regular rhythm and normal rate, no murmur. Gastrointestinal: non-tender, soft, no HSM. Musculoskeletal: nl extremities to inspection, with no edema, clubbing or cyanosis Neurological: Oriented, conversant, mildy anxious, cranial nerves intact, normal speech, intact motor and light touch sensation, toes downgoing. Results Result Diagram: 02/07/17 0710 02/08/17 0351 Results 24 hrs Laboratory Tests Test 02/08/17 03:51 02/08/17 09:16 Blood Urea Nitrogen 12 Creatinine 0.89 Vancomycin Level Trough 19.4 Bedside Glucose 182 Medications Medications Current Medications Ondansetron HCl (Zofran Inj) 4 mg Q6H PRN IV NAUSEA AND/OR VOMITING; Start at 19:30 Acetaminophen (Tylenol Tab) 650 mg Q6H PRN PO PAIN LEVEL 1-3 OR FEVER; Start at 19:30 Acetaminophen/ Hydrocodone Bitart ([place] (5/325)) 1 tab Q6H PRN PO MODERATE PAIN LEVEL 4-6 Last administered on 02/07/17 04:23; Admin Dose 1 TAB; Start at 19:30 Acetaminophen/ Hydrocodone Bitart ([place] (5/325)) 2 tab Q6H PRN PO SEVERE PAIN LEVEL 7-10 Last administered on 02/07/17 22:58; Admin Dose 2 TAB; Start at 19:30 Docusate Sodium (Colace) 100 mg Q12H PRN PO CONSTIPATION; Start 02/03/17 at 19: 30 Magnesium Hydroxide (Milk Of Mag) 30 ml DAILY PRN PO CONSTIPATION; Start at 19:30 Bisacodyl (Dulcolax Supp) 10 mg DAILY PRN [place] CONSTIPATION; Start 02/03/17 at 19 :30 Pantoprazole (Protonix Tab) 40 mg DAILY@06 PO Last administered on 02/08/17 04 :47; Admin Dose 40 MG; Start 02/04/17 at 06:00 Miscellaneous Information 1 ea NOTE XX ; Start 02/03/17 at 20:00 Glucose (Glutose) 15 gm Q15M PRN PO DECREASED GLUCOSE; Start 02/03/17 at 20:00 Glucose (Glutose) 22.5 gm Q15M PRN PO DECREASED GLUCOSE; Start 02/03/17 at 20: 00 Dextrose (D50w Syringe) 25 ml Q15M PRN IV DECREASED GLUCOSE; Start 02/03/17 at 20:00 Dextrose (D50w Syringe) 50 ml Q15M PRN IV DECREASED GLUCOSE; Start 02/03/17 at 20:00 Glucagon (Glucagen) 1 mg Q15M PRN IM DECREASED GLUCOSE; Start 02/03/17 at 20:00 Glucose (Glutose) 15 gm Q15M PRN BUCCAL DECREASED GLUCOSE; Start 02/03/17 at 20 :00 Lorazepam 0.5 mg 0.5 mg Q8H PRN IV ANXIETY; Start 02/03/17 at 20:00 Cefepime HCl (Maxipime 2gm/50 ml (Pmx)) 50 ml @ 100 mls/hr Q12 IVPB Last administered on 02/07/17 20:34; Admin Dose 100 MLS/HR; Start 02/03/17 at 21:00 Allopurinol (Zyloprim) 100 mg DAILY PO Last administered on 02/07/17 08:48; Admin Dose 100 MG; Start 02/04/17 at 09:00 Aspirin (Halfprin) 81 mg DAILY PO Last administered on 02/07/17 08:48; Admin Dose 81 MG; Start 02/04/17 at 09:00 Cholecalciferol (Vitamin D) 2,000 unit DAILY PO Last administered on 02/07/17 12:30; Admin Dose 2,000 UNIT; Start 02/04/17 at 09:00 Metoclopramide HCl (Reglan) 10 mg Q6H PRN IV NAUSEA AND/OR VOMITING; Start at 19:00 Famotidine (Pepcid) 20 mg Q12 PO Last administered on 02/07/17 20:34; Admin Dose 20 MG; Start 02/05/17 at 21:00 Diphenhydramine HCl (Benadryl) 25 mg Q4H PRN IV PRURITUS; Start 02/05/17 at 19: 30 Linagliptin 5 mg 5 mg DAILY PO Last administered on 02/07/17 08:48; Admin Dose 5 MG; Start 02/06/17 at 10:00 Vancomycin HCl/ Sodium Chloride (Vancocin/NS) 250 ml @ 83.333 mls/ hr Q24H IVPB ; Start 02/08/17 at 23:00 CAMILA YANES M.D. Feb 08, 2017 12:09
[2017-02-08] MEDS ORDERED: POTASSIUM CHLORIDE 10 MEQ in SOD CHLORIDE 0.45% 1,000 ML IV ONE (14:00)
--- NOTE | 2017-02-08 14:17 | PN ---
Date/Time of Note Date/Time of Note DATE: 02/08/17 TIME: 14:16 Assessment/Plan Lines/Catheters IV Catheter Type (from [email or web address] Saline Lock [place] in Place (from Nrs): No Assessment/Plan Assessment/Plan ct chest shows pneumonia and no fluid, will remove chest tubes. continue abx. follow up with Dr. Barron after discharge Exam/Review of Systems Vital Signs Vitals Vital Signs Date Time Temp Pulse Resp B/P Pulse Ox O2 Delivery O2 Flow Rate FiO2 02/08/17 12:47 98.0 127 18 144/67 98 02/08/17 12:37 Nasal Cannula 3.0 02/07/17 00:57 21 Intake and Output 02/07/17 02/07/17 02/08/17 15:00 23:00 07:00 Intake Total 750 ml Output Total 1000 ml Balance -250 ml Results Result Diagram: 02/07/17 0710 02/08/17 0351 TRINITY ARGUETA MD Feb 08, 2017 14:17
--- NOTE | 2017-02-08 14:32 | CONS ---
Date/Time of Note Date/Time of Note DATE: 02/08/17 TIME: 14:28 Assessment/Plan Assessment/Plan Chief Complaint/Hosp Course ID PROGRESS NOTE CURRENT ABX=> Vanco IV + Cefepime=> changed to Merrem today POD #3-> s/p VATS 02/05 Result Diagram: 02/07/17 0710 02/08/17 0351 24H INTERVAL SUMMARY * A/A/O -> c/o "urinating too much from the antibiotics" -- suspect since he cannot get up to urinate, he is sitting in bed urinating; possibly just topping off bladder ? BPH * Denies diarrhea, dysuria, hematuria * WBC rising again today ==> D/W Dr. Yanes = plan to change Cefepime to Merrem today * Thora 02/04 pleural fluid 3+ GPC * Lung Tissue 02/05 PRELIMINARY: Jamar: 02/05/17-173 Rcvd: 02/05/17-1839 GRAM STAIN Final POLYMORPH. LEUKOCYTE RARE GRAM POSITIVE COCCI RARE BODY FLUID CULTURE Preliminary No growth after 2 days & (-) anaerobes PHYSICAL EXAMINATION: GENERAL:VSS, NAD HEENT: Unremarkable NECK: Supple, trachea midline. CHEST: Rise symmetrical, without dyspnea on observation / CT HEART: Pulse RRR ABDOMEN: soft EXTREMITIES: Warm ID ASSESSMENT 76 yo M admit with: 1. Systemic inflammatory response syndrome with persistent leukocytosis secondary to #2. 2. Right empyema, status post 02/05/17 thoracotomy with total pulmonary decortication and chest tube placement. 3. Chronic kidney disease. 4. Diabetes II w/A1c 9.0% (-)MRSA Nares INVASIVES: PIV ABX ALLERGY: KNDA CURRENT ABX: => Vanco IV + Merrem #1 DC Cefepime today ID RECOMMENDATIONS 1. Continue Vanco IV + change Cefepime to Merrem per rising WBC 2. f/u on final micro results pending . Problems: Consultation Date/Type/Reason Admit Date/Time Feb 03, 2017 at 19:13 Initial Consult Date 02/05/17 Type of Consultation: ID Exam/Review of Systems Vital Signs Vitals Vital Signs Date Time Temp Pulse Resp B/P Pulse Ox O2 Delivery O2 Flow Rate FiO2 02/08/17 12:47 98.0 127 18 144/67 98 02/08/17 12:37 Nasal Cannula 3.0 02/07/17 00:57 21 Intake and Output 02/07/17 02/07/17 02/08/17 15:00 23:00 07:00 Intake Total 750 ml Output Total 1000 ml Balance -250 ml Results Result Diagram: 02/07/17 0710 02/08/17 0351 Results 24 hrs Laboratory Tests Test 02/08/17 03:51 02/08/17 09:16 02/08/17 11:59 Blood Urea Nitrogen 12 Creatinine 0.89 Vancomycin Level Trough 19.4 Bedside Glucose 182 211 Medications Medications Current Medications Ondansetron HCl (Zofran Inj) 4 mg Q6H PRN IV NAUSEA AND/OR VOMITING; Start at 19:30 Acetaminophen (Tylenol Tab) 650 mg Q6H PRN PO PAIN LEVEL 1-3 OR FEVER; Start at 19:30 Acetaminophen/ Hydrocodone Bitart ([place] (5/325)) 1 tab Q6H PRN PO MODERATE PAIN LEVEL 4-6 Last administered on 02/07/17 04:23; Admin Dose 1 TAB; Start at 19:30 Acetaminophen/ Hydrocodone Bitart ([place] (5/325)) 2 tab Q6H PRN PO SEVERE PAIN LEVEL 7-10 Last administered on 02/07/17 22:58; Admin Dose 2 TAB; Start at 19:30 Docusate Sodium (Colace) 100 mg Q12H PRN PO CONSTIPATION; Start 02/03/17 at 19: 30 Magnesium Hydroxide (Milk Of Mag) 30 ml DAILY PRN PO CONSTIPATION; Start at 19:30 Bisacodyl (Dulcolax Supp) 10 mg DAILY PRN [place] CONSTIPATION; Start 02/03/17 at 19 :30 Pantoprazole (Protonix Tab) 40 mg DAILY@06 PO Last administered on 02/08/17 04 :47; Admin Dose 40 MG; Start 02/04/17 at 06:00 Miscellaneous Information 1 ea NOTE XX ; Start 02/03/17 at 20:00 Glucose (Glutose) 15 gm Q15M PRN PO DECREASED GLUCOSE; Start 02/03/17 at 20:00 Glucose (Glutose) 22.5 gm Q15M PRN PO DECREASED GLUCOSE; Start 02/03/17 at 20: 00 Dextrose (D50w Syringe) 25 ml Q15M PRN IV DECREASED GLUCOSE; Start 02/03/17 at 20:00 Dextrose (D50w Syringe) 50 ml Q15M PRN IV DECREASED GLUCOSE; Start 02/03/17 at 20:00 Glucagon (Glucagen) 1 mg Q15M PRN IM DECREASED GLUCOSE; Start 02/03/17 at 20:00 Glucose (Glutose) 15 gm Q15M PRN BUCCAL DECREASED GLUCOSE; Start 02/03/17 at 20 :00 Lorazepam (Ativan) 0.5 mg Q8H PRN IV ANXIETY; Start 02/03/17 at 20:00 Allopurinol (Zyloprim) 100 mg DAILY PO Last administered on 02/08/17 11:52; Admin Dose 100 MG; Start 02/04/17 at 09:00 Aspirin (Halfprin) 81 mg DAILY PO Last administered on 02/08/17 11:52; Admin Dose 81 MG; Start 02/04/17 at 09:00 Cholecalciferol (Vitamin D) 2,000 unit DAILY PO Last administered on 02/07/17 12:30; Admin Dose 2,000 UNIT; Start 02/04/17 at 09:00 Metoclopramide HCl (Reglan) 10 mg Q6H PRN IV NAUSEA AND/OR VOMITING; Start at 19:00 Famotidine (Pepcid) 20 mg Q12 PO Last administered on 02/08/17 11:52; Admin Dose 20 MG; Start 02/05/17 at 21:00 Diphenhydramine HCl (Benadryl) 25 mg Q4H PRN IV PRURITUS; Start 02/05/17 at 19: 30 Linagliptin 5 mg 5 mg DAILY PO Last administered on 02/08/17 11:52; Admin Dose 5 MG; Start 02/06/17 at 10:00 Vancomycin HCl 1.5 gm/Sodium Chloride 250 ml @ 83.333 mls/ hr Q24H IVPB ; Start 02/08/17 at 23:00 Meropenem 100 ml @ 200 mls/hr Q12 IVPB ; Start 02/08/17 at 15:00 Potassium Chloride/Sodium Chloride (KCl/1/2 NS) 1,005 ml @ 100 mls/hr Q10H3M ONCE IV ; Start 02/08/17 at 14:00; Stop 02/09/17 at 00:02 AZEB BERNAL NP Feb 08, 2017 14:32
[2017-02-08 15:36] LABS: ADD SCAN DIFF NO
[2017-02-08 15:38] LABS: ABNORMAL IP MESSAGE 1; HEMATOCRIT 31.9 % (42.0-52.0); HEMOGLOBIN 10.3 g/dl (14.0-18.0); MEAN CORPUSCULAR HEMOGLOBIN 27.9 pg (29.0-33.0); MEAN CORPUSCULAR HGB CONC 32.3 g/dl (32.0-37.0); MEAN CORPUSCULAR VOLUME 86.4 fl (82.0-101.0); MEAN PLATELET VOLUME 10.3 fl (7.4-10.4); PLATELET COUNT 413 10^3/UL (140-415); RED BLOOD COUNT 3.69 10^6/ul (4.70-6.10); RED CELL DISTRIBUTION WIDTH 14.4 % (11.5-14.5)
[2017-02-08 15:49] LABS: POTASSIUM 3.8 mmol/L (3.5-5.1)
[2017-02-08 15:51] LABS: CREATININE 0.93 mg/dl (0.61-1.24)
[2017-02-08 15:52] LABS: CALCIUM 8.1 mg/dl (8.4-10.2)
[2017-02-08 16:23] LABS: MONOCYTE # 1.4 10^3/ul (0.3-0.9); NEUTROPHIL # 31.2 10^3/ul (1.6-7.5)
[2017-02-08] MEDS: MEROPENEM 1 GM/100 ML (PMX) 100 ML IVPB SCH ×2 (16:31→23:21)
[2017-02-08] MEDS: CHOLECALCIFEROL 2,000 UNIT CAP PO SCH (16:31)
[2017-02-08] MEDS: HYDROCODONE/APAP (5/325) TAB PO PRN (22:49)
[2017-02-08] MEDS: VANCOMYCIN 1.5 GM in SOD CHLORIDE 0.9% 250 ML IVPB SCH (23:54)
[2017-02-09] VITALS (10 sets, daily range): BP systolic 129–168; BP diastolic 61–82; PULSE 80–95; RESP 18–20
[2017-02-09] MEDS: ALBUTEROL/IPRATROPIUM (NEB) 3 ML AMP NEB SCH ×6 (00:49→21:17)
[2017-02-09] MEDS: PANTOPRAZOLE (EC) 40 MG TAB PO SCH (05:22)
[2017-02-09 07:06] LABS: ADD SCAN DIFF NO
[2017-02-09 07:10] LABS: ABNORMAL IP MESSAGE 1; BASOPHILS % 0.2 % (0.0-2.0); EOSINOPHILS # 0.1 10^3/ul (0.0-0.5); EOSINOPHILS % 0.5 % (0.0-7.0); HEMATOCRIT 30.4 % (42.0-52.0); HEMOGLOBIN 9.9 g/dl (14.0-18.0); LYMPHOCYTES # 0.7 10^3/ul (0.8-2.9); MEAN CORPUSCULAR HEMOGLOBIN 28.4 pg (29.0-33.0); MEAN CORPUSCULAR HGB CONC 32.6 g/dl (32.0-37.0); MEAN CORPUSCULAR VOLUME 87.4 fl (82.0-101.0); MEAN PLATELET VOLUME 10.3 fl (7.4-10.4); MONOCYTE # 1.6 10^3/ul (0.3-0.9); MONOCYTES % 7.5 % (0.0-11.0); NEUTROPHIL # 18.5 10^3/ul (1.6-7.5); NEUTROPHILS % 84.3 % (39.0-77.0); PLATELET COUNT 364 10^3/UL (140-415); RED BLOOD COUNT 3.48 10^6/ul (4.70-6.10); RED CELL DISTRIBUTION WIDTH 14.6 % (11.5-14.5); WHITE BLOOD COUNT 21.9 10^3/ul (4.8-10.8)
[2017-02-09 07:22] LABS: POTASSIUM 3.2 mmol/L (3.5-5.1)
[2017-02-09 07:25] LABS: CREATININE 0.79 mg/dl (0.61-1.24)
[2017-02-09 07:26] LABS: CALCIUM 7.8 mg/dl (8.4-10.2)
[2017-02-09] MEDS: ALLOPURINOL 100 MG TAB PO SCH (09:13)
[2017-02-09] MEDS: ASPIRIN (EC) 81 MG TAB PO SCH (09:13)
[2017-02-09] MEDS: LINAGLIPTIN 5 MG TABLET PO SCH (09:13)
[2017-02-09] MEDS: MEROPENEM 1 GM/100 ML (PMX) 100 ML IVPB SCH ×2 (09:13→22:28)
[2017-02-09] MEDS: CHOLECALCIFEROL 2,000 UNIT CAP PO SCH (09:13)
[2017-02-09] MEDS: FAMOTIDINE 20 MG TAB PO SCH ×2 (09:13→22:29)
[2017-02-09] MEDS: INSULIN ASPART [NOVOLOG] 3 ML PEN SC SCH ×3 (09:16→18:10)
--- NOTE | 2017-02-09 13:15 | PN ---
DATE: 02/09/2017 INFECTIOUS DISEASE PROGRESS NOTE SUBJECTIVE: No acute changes. The patient is alert, feels good, looks comfortable. WBC today 21.9 , platelets 364, neutrophils 84.3. BUN 15, creatinine 0.79. MICROBIOLOGY: Pleural fluid culture growing strep species susceptible to all the antibiotics. PHYSICAL EXAMINATION: GENERAL: This is well-developed, elderly man who is alert, in no distress. HEENT: Head atraumatic, normocephalic. Sclerae anicteric. Buccal mucosa dry. NECK: Supple, trachea midline. CHEST: Rise symmetrical. Breath sounds diminished. HEART: S1, S2. ABDOMEN: Soft. Bowel sounds present. EXTREMITIES: Without cyanosis. ASSESSMENT: 1. Systemic inflammatory response syndrome secondary to #2. 2. Empyema, status post video-assisted thoracic surgery with total decortication, chest tube was re moved. 3. Possible healthcare-associated pneumonia as per CT of the chest done yesterday. 4. Diabetes. PLAN: The patient remains stable. White blood cell count tracing down. We will continue him on cu rrent antimicrobials, follow chest x-ray. Follow cardiothoracic surgery recommendations. Dictated By: BALDEV RASMUSSEN REVERSE ENGINEER for REBA FRIED/NTS Conf#: [id number] DID#: [id number]
[2017-02-09] MEDS ORDERED: POTASSIUM CHLORIDE (SR) 20 MEQ TAB PO STA (14:49)
--- NOTE | 2017-02-09 15:25 | PN ---
Date/Time of Note Date/Time of Note DATE: 02/09/17 TIME: 15:07 Assessment/Plan VTE Prophylaxis VTE Prophylaxis Intervention: SCD's Lines/Catheters IV [facility] Type (from [facility] Peripheral IV Urinary Cath still in place: No Assessment/Plan Assessment/Plan 76-year-old male with: 1. RLL Empyema s/p VATS with decortication and chest tube placement POD#4, Patient had chest tubes out yesterday, WBC up and on 3L [place] new findings of HCAP per ID Antibiotics changed to Meropenem and Vanco and WBC trended down today Transfer to Med Surg today Dr Baker, Pulmonary and CTS following. 2. Post op Anemia, s/p 2 units pRBC last Thursday. Hb stable so far 3. Chronic kidney disease. Must be stage I or II, as the patient's renal function is fairly good currently. Stable renal function so far 4. New onset diabetes mellitus versus hyperglycemia related to the underlying inflammatory or infectious process. Hemoglobin A1c is up to 9.0. ADA diet and on Tradjenta, pre meal insulin added this weekend If needed will add Lantus. 5. Hypertension. Normotensive. Prophylaxis. SCDs for DVT ppx and Protonix for GI prophylaxis. DISPOSITION: POD# 4 s/p VATS and decortication Right Lung by CTS Dr Barron, also with HCAP and abx adjusted Transfer to Med Surg Pulmonary and infectious disease following. Subjective 24 Hr Interval Summary Free Text/Dictation Patient doing better, ambulated with PT Afebrile, WBC trending down with new abx Chest tubes out yesterday Transfer to [facility] surg Exam/Review of Systems Vital Signs Vitals Vital Signs Date Time Temp Pulse Resp B/P Pulse Ox O2 Delivery O2 Flow Rate FiO2 02/09/17 13:40 105 18 94 Nasal Cannula 3.0 02/09/17 12:05 97.5 168/82 02/07/17 00:57 21 Intake and Output 02/08/17 02/08/17 02/09/17 15:00 23:00 07:00 Intake Total 700 ml Output Total 1200 ml Balance -500 ml Exam Constitutional: alert, oriented, well developed Respiratory: diminished breath sounds (RLL), normal air movement Cardiovascular: nl pulses, regular rate and rhythm Gastrointestinal: non-tender, soft Musculoskeletal: nl extremities to inspection, nl gait and stance Extremities: normal pulses Neurological: FIRER TUNNEL KILN II-XII intact, nl mental status, nl speech, nl strength Results Result Diagram: 02/09/17 0602/09/17 0605 Results 24 hrs Laboratory Tests Test 02/08/17 17:43 02/09/17 06:05 02/09/17 07:33 02/09/17 11:44 Bedside Glucose 247 H 164 125 White Blood Count 21.9 #H Red Blood Count 3.48 L Hemoglobin 9.9 L Hematocrit 30.4 L Mean Corpuscular Volume 87.4 Mean Corpuscular Hemoglobin 28.4 L Mean Corpuscular Hemoglobin Concent 32.6 Red Cell Distribution Width 14.6 H Platelet Count 364 Mean Platelet Volume 10.3 Neutrophils % 84.3 H Lymphocytes % 3.0 L Monocytes % 7.5 Eosinophils % 0.5 Basophils % 0.2 Nucleated Red Blood Cells % 0.0 Neutrophils # 18.5 H Lymphocytes # 0.7 L Monocytes # 1.6 H Eosinophils # 0.1 Basophils # 0.0 Nucleated Red Blood Cells # 0.0 Sodium Level 135 Potassium Level 3.2 L Chloride Level 101 Carbon Dioxide Level 28 Anion Gap 9 Blood Urea Nitrogen 15 Creatinine 0.79 Glucose Level 167 Calcium Level 7.8 L Medications Medications Current Medications Ondansetron HCl (Zofran Inj) 4 mg Q6H PRN IV NAUSEA AND/OR VOMITING; Start at 19:30 Acetaminophen (Tylenol Tab) 650 mg Q6H PRN PO PAIN LEVEL 1-3 OR FEVER; Start at 19:30 Acetaminophen/ Hydrocodone Bitart ([place] (5/325)) 1 tab Q6H PRN PO MODERATE PAIN LEVEL 4-6 Last administered on 02/08/17 22:49; Admin Dose 1 TAB; Start at 19:30 Acetaminophen/ Hydrocodone Bitart ([place] (5/325)) 2 tab Q6H PRN PO SEVERE PAIN LEVEL 7-10 Last administered on 02/07/17 22:58; Admin Dose 2 TAB; Start at 19:30 Docusate Sodium (Colace) 100 mg Q12H PRN PO CONSTIPATION; Start 02/03/17 at 19: 30 Magnesium Hydroxide (Milk Of Mag) 30 ml DAILY PRN PO CONSTIPATION; Start at 19:30 Bisacodyl (Dulcolax Supp) 10 mg DAILY PRN [place] CONSTIPATION; Start 02/03/17 at 19 :30 Pantoprazole (Protonix Tab) 40 mg DAILY@06 PO Last administered on 02/09/17 05 :22; Admin Dose 40 MG; Start 02/04/17 at 06:00 Miscellaneous Information 1 ea NOTE XX ; Start 02/03/17 at 20:00 Glucose (Glutose) 15 gm Q15M PRN PO DECREASED GLUCOSE; Start 02/03/17 at 20:00 Glucose (Glutose) 22.5 gm Q15M PRN PO DECREASED GLUCOSE; Start 02/03/17 at 20: 00 Dextrose (D50w Syringe) 25 ml Q15M PRN IV DECREASED GLUCOSE; Start 02/03/17 at 20:00 Dextrose (D50w Syringe) 50 ml Q15M PRN IV DECREASED GLUCOSE; Start 02/03/17 at 20:00 Glucagon (Glucagen) 1 mg Q15M PRN IM DECREASED GLUCOSE; Start 02/03/17 at 20:00 Glucose (Glutose) 15 gm Q15M PRN BUCCAL DECREASED GLUCOSE; Start 02/03/17 at 20 :00 Lorazepam (Ativan) 0.5 mg Q8H PRN IV ANXIETY; Start 02/03/17 at 20:00 Allopurinol (Zyloprim) 100 mg DAILY PO Last administered on 02/09/17 09:13; Admin Dose 100 MG; Start 02/04/17 at 09:00 Aspirin (Halfprin) 81 mg DAILY PO Last administered on 02/09/17 09:13; Admin Dose 81 MG; Start 02/04/17 at 09:00 Cholecalciferol (Vitamin D) 2,000 unit DAILY PO Last administered on 02/09/17 09:13; Admin Dose 2,000 UNIT; Start 02/04/17 at 09:00 Metoclopramide HCl (Reglan) 10 mg Q6H PRN IV NAUSEA AND/OR VOMITING; Start at 19:00 Famotidine (Pepcid) 20 mg Q12 PO Last administered on 02/09/17 09:13; Admin Dose 20 MG; Start 02/05/17 at 21:00 Diphenhydramine HCl (Benadryl) 25 mg Q4H PRN IV PRURITUS; Start 02/05/17 at 19: 30 Linagliptin 5 mg 5 mg DAILY PO Last administered on 02/09/17 09:13; Admin Dose 5 MG; Start 02/06/17 at 10:00 Vancomycin HCl 1.5 gm/Sodium Chloride 250 ml @ 83.333 mls/ hr Q24H IVPB Last administered on 02/08/17 23:54; Admin Dose 83.333 MLS/HR; Start 02/08/17 at 23: 00 Meropenem (Merrem 1 Gm/100 ml (Pmx)) 100 ml @ 200 mls/hr Q12 IVPB Last administered on 02/09/17 09:13; Admin Dose 200 MLS/HR; Start 02/08/17 at 15:00 PAULIE DIAZ Feb 09, 2017 15:21
[2017-02-09] MEDS ORDERED: LISINOPRIL 20 MG TAB PO ONE (22:30)
[2017-02-09] MEDS: VANCOMYCIN 1.5 GM in SOD CHLORIDE 0.9% 250 ML IVPB SCH (23:09)
[2017-02-09] MEDS: HYDROCODONE/APAP (5/325) TAB PO PRN (23:10)
[2017-02-09] MEDS: ZOLPIDEM 5 MG TAB PO PRN (23:10)
[2017-02-10] MEDS: ALBUTEROL/IPRATROPIUM (NEB) 3 ML AMP NEB SCH ×6 (01:43→20:22)
[2017-02-10] MEDS: PANTOPRAZOLE (EC) 40 MG TAB PO SCH (05:34)
[2017-02-10 05:48] LABS: ADD SCAN DIFF NO
[2017-02-10 05:58] LABS: ABNORMAL IP MESSAGE 1; BASOPHILS % 0.1 % (0.0-2.0); EOSINOPHILS # 0.2 10^3/ul (0.0-0.5); EOSINOPHILS % 0.9 % (0.0-7.0); HEMATOCRIT 31.9 % (42.0-52.0); HEMOGLOBIN 10.5 g/dl (14.0-18.0); LYMPHOCYTES # 0.7 10^3/ul (0.8-2.9); MEAN CORPUSCULAR HEMOGLOBIN 28.6 pg (29.0-33.0); MEAN CORPUSCULAR HGB CONC 32.9 g/dl (32.0-37.0); MEAN CORPUSCULAR VOLUME 86.9 fl (82.0-101.0); MEAN PLATELET VOLUME 9.8 fl (7.4-10.4); MONOCYTE # 1.5 10^3/ul (0.3-0.9); MONOCYTES % 8.1 % (0.0-11.0); NEUTROPHIL # 14.9 10^3/ul (1.6-7.5); NEUTROPHILS % 80.3 % (39.0-77.0); PLATELET COUNT 406 10^3/UL (140-415); RED BLOOD COUNT 3.67 10^6/ul (4.70-6.10); RED CELL DISTRIBUTION WIDTH 14.6 % (11.5-14.5); WHITE BLOOD COUNT 18.5 10^3/ul (4.8-10.8)
[2017-02-10 06:49] LABS: POTASSIUM 3.8 mmol/L (3.5-5.1)
[2017-02-10 06:52] LABS: CALCIUM 8.1 mg/dl (8.4-10.2); CREATININE 0.81 mg/dl (0.61-1.24)
[2017-02-10 07:00] LABS: MAGNESIUM 1.8 mg/dl (1.7-2.5); PHOSPHORUS 2.8 mg/dl (2.5-4.9)
[2017-02-10 08:14] VITALS: BP 152/69; RESP 16
[2017-02-10] MEDS: MEROPENEM 1 GM/100 ML (PMX) 100 ML IVPB SCH ×2 (09:19→20:11)
[2017-02-10] MEDS: ASPIRIN (EC) 81 MG TAB PO SCH (09:19)
[2017-02-10] MEDS: FAMOTIDINE 20 MG TAB PO SCH ×2 (09:19→20:11)
[2017-02-10] MEDS: LISINOPRIL 20 MG TAB PO SCH (09:20)
[2017-02-10] MEDS: CHOLECALCIFEROL 2,000 UNIT CAP PO SCH (09:20)
[2017-02-10] MEDS: ALLOPURINOL 100 MG TAB PO SCH (09:20)
[2017-02-10] MEDS: LINAGLIPTIN 5 MG TABLET PO SCH (09:20)
[2017-02-10] MEDS: INSULIN ASPART [NOVOLOG] 3 ML PEN SC SCH ×3 (09:22→17:40)
--- NOTE | 2017-02-10 14:03 | CONS ---
Date/Time of Note Date/Time of Note DATE: 02/10/17 TIME: 13:55 Assessment/Plan Assessment/Plan Chief Complaint/Hosp Course SUBJECTIVE: No acute changes. The patient is alert, feels good, looks comfortable. MICROBIOLOGY: Pleural fluid culture growing strep species susceptible to all the antibiotics. PHYSICAL EXAMINATION: GENERAL: This is well-developed, elderly man who is alert, in no distress. HEENT: Head atraumatic, normocephalic. Sclerae anicteric. Buccal mucosa dry. NECK: Supple, trachea midline. CHEST: Rise symmetrical. Breath sounds diminished. HEART: S1, S2. ABDOMEN: Soft. Bowel sounds present. EXTREMITIES: Without cyanosis. ASSESSMENT: 1. Systemic inflammatory response syndrome secondary to #2. 2. Empyema, status post video-assisted thoracic surgery with total decortication, chest tube was removed. 3. Possible healthcare-associated pneumonia as per CT of the chest done . 4. Diabetes. PLAN: The patient remains stable. White blood cell count tracing down. Continue abx. Follow cardiothoracic surgery recommendations. Recommend dc on Invanz daily for 2-3 more weeks when ready DW Dr Patricio Problems: Consultation Date/Type/Reason Admit Date/Time Feb 03, 2017 at 19:13 Initial Consult Date 02/05/17 Type of Consultation: ID Exam/Review of Systems Vital Signs Vitals Vital Signs Date Time Temp Pulse Resp B/P Pulse Ox O2 Delivery O2 Flow Rate FiO2 02/10/17 09:50 104 20 97 Nasal Cannula 3.0 02/10/17 08:14 98.0 152/69 02/07/17 00:57 21 Intake and Output 02/09/17 02/09/17 02/10/17 15:00 23:00 07:00 Intake Total 600 ml 830 ml Balance 600 ml 830 ml Results Result Diagram: 02/10/17 0530 02/10/17 0530 Results 24 hrs Laboratory Tests Test 02/09/17 17:09 02/10/17 05:30 02/10/17 07:11 02/10/17 11:50 Bedside Glucose 180 118 187 White Blood Count 18.5 H Red Blood Count 3.67 L Hemoglobin 10.5 L Hematocrit 31.9 L Mean Corpuscular Volume 86.9 Mean Corpuscular Hemoglobin 28.6 L Mean Corpuscular Hemoglobin Concent 32.9 Red Cell Distribution Width 14.6 H Platelet Count 406 Mean Platelet Volume 9.8 Neutrophils % 80.3 H Lymphocytes % 4.0 L Monocytes % 8.1 Eosinophils % 0.9 Basophils % 0.1 Nucleated Red Blood Cells % 0.0 Neutrophils # 14.9 H Lymphocytes # 0.7 L Monocytes # 1.5 H Eosinophils # 0.2 Basophils # 0.0 Nucleated Red Blood Cells # 0.0 Sodium Level 134 L Potassium Level 3.8 Chloride Level 100 Carbon Dioxide Level 28 Anion Gap 10 Blood Urea Nitrogen 14 Creatinine 0.81 Glucose Level 131 Calcium Level 8.1 L Phosphorus Level 2.8 Magnesium Level 1.8 Medications Medications Current Medications Ondansetron HCl (Zofran Inj) 4 mg Q6H PRN IV NAUSEA AND/OR VOMITING; Start at 19:30 Acetaminophen (Tylenol Tab) 650 mg Q6H PRN PO PAIN LEVEL 1-3 OR FEVER; Start at 19:30 Acetaminophen/ Hydrocodone Bitart ([place] (5/325)) 1 tab Q6H PRN PO MODERATE PAIN LEVEL 4-6 Last administered on 02/09/17 23:10; Admin Dose 1 TAB; Start at 19:30 Acetaminophen/ Hydrocodone Bitart ([place] (5/325)) 2 tab Q6H PRN PO SEVERE PAIN LEVEL 7-10 Last administered on 02/07/17 22:58; Admin Dose 2 TAB; Start at 19:30 Docusate Sodium (Colace) 100 mg Q12H PRN PO CONSTIPATION; Start 02/03/17 at 19: 30 Magnesium Hydroxide (Milk Of Mag) 30 ml DAILY PRN PO CONSTIPATION; Start at 19:30 Bisacodyl (Dulcolax Supp) 10 mg DAILY PRN [place] CONSTIPATION; Start 02/03/17 at 19 :30 Pantoprazole (Protonix Tab) 40 mg DAILY@06 PO Last administered on 02/10/17 05 :34; Admin Dose 40 MG; Start 02/04/17 at 06:00 Miscellaneous Information 1 ea NOTE XX ; Start 02/03/17 at 20:00 Glucose (Glutose) 15 gm Q15M PRN PO DECREASED GLUCOSE; Start 02/03/17 at 20:00 Glucose (Glutose) 22.5 gm Q15M PRN PO DECREASED GLUCOSE; Start 02/03/17 at 20: 00 Dextrose (D50w Syringe) 25 ml Q15M PRN IV DECREASED GLUCOSE; Start 02/03/17 at 20:00 Dextrose (D50w Syringe) 50 ml Q15M PRN IV DECREASED GLUCOSE; Start 02/03/17 at 20:00 Glucagon (Glucagen) 1 mg Q15M PRN IM DECREASED GLUCOSE; Start 02/03/17 at 20:00 Glucose (Glutose) 15 gm Q15M PRN BUCCAL DECREASED GLUCOSE; Start 02/03/17 at 20 :00 Lorazepam (Ativan) 0.5 mg Q8H PRN IV ANXIETY; Start 02/03/17 at 20:00 Allopurinol (Zyloprim) 100 mg DAILY PO Last administered on 02/10/17 09:20; Admin Dose 100 MG; Start 02/04/17 at 09:00 Aspirin (Halfprin) 81 mg DAILY PO Last administered on 02/10/17 09:19; Admin Dose 81 MG; Start 02/04/17 at 09:00 Cholecalciferol (Vitamin D) 2,000 unit DAILY PO Last administered on 02/10/17 09:20; Admin Dose 2,000 UNIT; Start 02/04/17 at 09:00 Metoclopramide HCl (Reglan) 10 mg Q6H PRN IV NAUSEA AND/OR VOMITING; Start at 19:00 Famotidine (Pepcid) 20 mg Q12 PO Last administered on 02/10/17 09:19; Admin Dose 20 MG; Start 02/05/17 at 21:00 Diphenhydramine HCl (Benadryl) 25 mg Q4H PRN IV PRURITUS; Start 02/05/17 at 19: 30 Linagliptin 5 mg 5 mg DAILY PO Last administered on 02/10/17 09:20; Admin Dose 5 MG; Start 02/06/17 at 10:00 Vancomycin HCl 1.5 gm/Sodium Chloride 250 ml @ 83.333 mls/ hr Q24H IVPB Last administered on 02/09/17 23:09; Admin Dose 83.333 MLS/HR; Start 02/08/17 at 23: 00 Meropenem (Merrem 1 Gm/100 ml (Pmx)) 100 ml @ 200 mls/hr Q12 IVPB Last administered on 02/10/17 09:19; Admin Dose 200 MLS/HR; Start 02/08/17 at 15:00 Lisinopril (Zestril) 20 mg DAILY PO Last administered on 02/10/17 09:20; Admin Dose 20 MG; Start 02/10/17 at 09:00 BALDEV RASMUSSEN NP Feb 10, 2017 14:03
--- NOTE | 2017-02-10 17:18 | PN ---
Date/Time of Note Date/Time of Note DATE: 02/10/17 TIME: 17:01 Assessment/Plan VTE Prophylaxis VTE Prophylaxis Intervention: SCD's Lines/Catheters IV Catheter Type (from [facility]): Sal[facility] Lock Urinary Cath still in place: No Assessment/Plan Assessment/Plan 76-year-old male with: 1. RLL Empyema s/p VATS with decortication and chest tube placement POD#5 Patient had chest tubes out yesterday, WBC trending down, on 3L NC with new findings of HCAP per ID, continue current antibiotics Meropenem and Vanco and WBC trended down. Dr Baker, Pulmonary and CTS following. PICC line placement for outpatient IV abx at discharge 2. Acute Post op Anemia, s/p 2 units pRBC last Thursday. Hb stable so far 3. Chronic kidney disease. Must be stage I or II, as the patient's renal function is fairly good currently. Stable renal function so far 4. New onset diabetes mellitus versus hyperglycemia related to the underlying inflammatory or infectious process. Hemoglobin A1c is up to 9.0. ADA diet and on Tradjenta, pre meal insulin added this weekend If needed will add Lantus. 5. Hypertension. Normotensive. Prophylaxis. SCDs for DVT ppx and Protonix for GI prophylaxis. DISPOSITION: POD# 5 s/p VATS and decortication Right Lung by CTS Dr Barron, also with HCAP and abx adjusted, if WBC keeps trending down plan for d/c in the next 48 hrs and will have PICC line placed in AM. Pulmonary and infectious disease following. Subjective 24 Hr Interval Summary Free Text/Dictation Patient doing better WBC trending down No complaints and asking for PT PICC line placement in AM as planning for IV abx as outpatient Exam/Review of Systems Vital Signs Vitals Vital Signs Date Time Temp Pulse Resp B/P Pulse Ox O2 Delivery O2 Flow Rate FiO2 02/10/17 14:27 3.0 02/10/17 09:50 104 20 97 Nasal Cannula 02/10/17 08:14 98.0 152/69 02/07/17 00:57 21 Intake and Output 02/09/17 02/09/17 02/10/17 15:00 23:00 07:00 Intake Total 600 ml 830 ml Balance 600 ml 830 ml Exam Constitutional: alert, oriented, well developed Respiratory: diminished breath sounds (RML/RLL), normal air movement Cardiovascular: nl pulses, regular rate and rhythm Gastrointestinal: non-tender, soft Musculoskeletal: nl extremities to inspection Extremities: normal pulses, other (no edema, clubbing or cyanosis ) Neurological: LIQUEFIER II-XII intact, nl mental status, nl speech, nl strength Results Result Diagram: 02/10/17 0530 02/10/17 0530 Results 24 hrs Laboratory Tests Test 02/09/17 17:09 02/10/17 05:30 02/10/17 07:11 02/10/17 11:50 Bedside Glucose 180 118 187 White Blood Count 18.5 H Red Blood Count 3.67 L Hemoglobin 10.5 L Hematocrit 31.9 L Mean Corpuscular Volume 86.9 Mean Corpuscular Hemoglobin 28.6 L Mean Corpuscular Hemoglobin Concent 32.9 Red Cell Distribution Width 14.6 H Platelet Count 406 Mean Platelet Volume 9.8 Neutrophils % 80.3 H Lymphocytes % 4.0 L Monocytes % 8.1 Eosinophils % 0.9 Basophils % 0.1 Nucleated Red Blood Cells % 0.0 Neutrophils # 14.9 H Lymphocytes # 0.7 L Monocytes # 1.5 H Eosinophils # 0.2 Basophils # 0.0 Nucleated Red Blood Cells # 0.0 Sodium Level 134 L Potassium Level 3.8 Chloride Level 100 Carbon Dioxide Level 28 Anion Gap 10 Blood Urea Nitrogen 14 Creatinine 0.81 Glucose Level 131 Calcium Level 8.1 L Phosphorus Level 2.8 Magnesium Level 1.8 Medications Medications Current Medications Ondansetron HCl (Zofran Inj) 4 mg Q6H PRN IV NAUSEA AND/OR VOMITING; Start at 19:30 Acetaminophen (Tylenol Tab) 650 mg Q6H PRN PO PAIN LEVEL 1-3 OR FEVER; Start at 19:30 Acetaminophen/ Hydrocodone Bitart ([place] (5/325)) 1 tab Q6H PRN PO MODERATE PAIN LEVEL 4-6 Last administered on 02/09/17 23:10; Admin Dose 1 TAB; Start at 19:30 Acetaminophen/ Hydrocodone Bitart ([place] (5/325)) 2 tab Q6H PRN PO SEVERE PAIN LEVEL 7-10 Last administered on 02/07/17 22:58; Admin Dose 2 TAB; Start at 19:30 Docusate Sodium (Colace) 100 mg Q12H PRN PO CONSTIPATION; Start 02/03/17 at 19: 30 Magnesium Hydroxide (Milk Of Mag) 30 ml DAILY PRN PO CONSTIPATION; Start at 19:30 Bisacodyl (Dulcolax Supp) 10 mg DAILY PRN [place] CONSTIPATION; Start 02/03/17 at 19 :30 Pantoprazole (Protonix Tab) 40 mg DAILY@06 PO Last administered on 02/10/17 05 :34; Admin Dose 40 MG; Start 02/04/17 at 06:00 Miscellaneous Information 1 ea NOTE XX ; Start 02/03/17 at 20:00 Glucose (Glutose) 15 gm Q15M PRN PO DECREASED GLUCOSE; Start 02/03/17 at 20:00 Glucose (Glutose) 22.5 gm Q15M PRN PO DECREASED GLUCOSE; Start 02/03/17 at 20: 00 Dextrose (D50w Syringe) 25 ml Q15M PRN IV DECREASED GLUCOSE; Start 02/03/17 at 20:00 Dextrose (D50w Syringe) 50 ml Q15M PRN IV DECREASED GLUCOSE; Start 02/03/17 at 20:00 Glucagon (Glucagen) 1 mg Q15M PRN IM DECREASED GLUCOSE; Start 02/03/17 at 20:00 Glucose (Glutose) 15 gm Q15M PRN BUCCAL DECREASED GLUCOSE; Start 02/03/17 at 20 :00 Lorazepam (Ativan) 0.5 mg Q8H PRN IV ANXIETY; Start 02/03/17 at 20:00 Allopurinol (Zyloprim) 100 mg DAILY PO Last administered on 02/10/17 09:20; Admin Dose 100 MG; Start 02/04/17 at 09:00 Aspirin (Halfprin) 81 mg DAILY PO Last administered on 02/10/17 09:19; Admin Dose 81 MG; Start 02/04/17 at 09:00 Cholecalciferol (Vitamin D) 2,000 unit DAILY PO Last administered on 02/10/17 09:20; Admin Dose 2,000 UNIT; Start 02/04/17 at 09:00 Metoclopramide HCl (Reglan) 10 mg Q6H PRN IV NAUSEA AND/OR VOMITING; Start at 19:00 Famotidine (Pepcid) 20 mg Q12 PO Last administered on 02/10/17 09:19; Admin Dose 20 MG; Start 02/05/17 at 21:00 Diphenhydramine HCl (Benadryl) 25 mg Q4H PRN IV PRURITUS; Start 02/05/17 at 19: 30 Linagliptin 5 mg 5 mg DAILY PO Last administered on 02/10/17 09:20; Admin Dose 5 MG; Start 02/06/17 at 10:00 Vancomycin HCl 1.5 gm/Sodium Chloride 250 ml @ 83.333 mls/ hr Q24H IVPB Last administered on 02/09/17 23:09; Admin Dose 83.333 MLS/HR; Start 02/08/17 at 23: 00 Meropenem (Merrem 1 Gm/100 ml (Pmx)) 100 ml @ 200 mls/hr Q12 IVPB Last administered on 02/10/17 09:19; Admin Dose 200 MLS/HR; Start 02/08/17 at 15:00 Lisinopril (Zestril) 20 mg DAILY PO Last administered on 02/10/17 09:20; Admin Dose 20 MG; Start 02/10/17 at 09:00 PAULIE DIAZ Feb 10, 2017 17:12
[2017-02-10] MEDS ORDERED: LIDOCAINE 1% (MDV) 20 ML INJ SC ONE (17:30)
[2017-02-10 21:00] VITALS: BP 134/62; RESP 19
[2017-02-10] MEDS: VANCOMYCIN 1.5 GM in SOD CHLORIDE 0.9% 250 ML IVPB SCH (22:36)
[2017-02-10] MEDS: ZOLPIDEM 5 MG TAB PO PRN (22:56)
[2017-02-10] MEDS: HYDROCODONE/APAP (5/325) TAB PO PRN (22:56)
[2017-02-11] MEDS: ALBUTEROL/IPRATROPIUM (NEB) 3 ML AMP NEB SCH ×6 (00:54→21:00)
[2017-02-11] MEDS: PANTOPRAZOLE (EC) 40 MG TAB PO SCH (05:18)
[2017-02-11 05:49] LABS: ADD SCAN DIFF NO
[2017-02-11 06:08] LABS: ABNORMAL IP MESSAGE 1; BASOPHIL # 0.1 10^3/ul (0.0-0.1); BASOPHILS % 0.5 % (0.0-2.0); EOSINOPHILS # 0.1 10^3/ul (0.0-0.5); EOSINOPHILS % 0.9 % (0.0-7.0); HEMATOCRIT 29.7 % (42.0-52.0); HEMOGLOBIN 9.8 g/dl (14.0-18.0); LYMPHOCYTES # 0.7 10^3/ul (0.8-2.9); LYMPHOCYTES % 4.4 % (15.0-51.0); MEAN CORPUSCULAR HEMOGLOBIN 28.7 pg (29.0-33.0); MEAN CORPUSCULAR VOLUME 86.8 fl (82.0-101.0); MEAN PLATELET VOLUME 9.6 fl (7.4-10.4); MONOCYTE # 1.6 10^3/ul (0.3-0.9); MONOCYTES % 10.4 % (0.0-11.0); NEUTROPHIL # 11.6 10^3/ul (1.6-7.5); NEUTROPHILS % 77.5 % (39.0-77.0); PLATELET COUNT 368 10^3/UL (140-415); RED BLOOD COUNT 3.42 10^6/ul (4.70-6.10); RED CELL DISTRIBUTION WIDTH 14.5 % (11.5-14.5)
[2017-02-11 06:13] LABS: POTASSIUM 3.7 mmol/L (3.5-5.1)
[2017-02-11 06:16] LABS: CALCIUM 8.1 mg/dl (8.4-10.2); CREATININE 0.87 mg/dl (0.61-1.24)
[2017-02-11 06:24] LABS: MAGNESIUM 1.7 mg/dl (1.7-2.5)
[2017-02-11] MEDS: INSULIN ASPART [NOVOLOG] 3 ML PEN SC SCH ×3 (08:26→17:25)
[2017-02-11 08:52] VITALS: BP 123/60; RESP 20
[2017-02-11] MEDS: MEROPENEM 1 GM/100 ML (PMX) 100 ML IVPB SCH ×2 (10:02→20:10)
[2017-02-11] MEDS: LINAGLIPTIN 5 MG TABLET PO SCH (10:03)
[2017-02-11] MEDS: ALLOPURINOL 100 MG TAB PO SCH (10:03)
[2017-02-11] MEDS: CHOLECALCIFEROL 2,000 UNIT CAP PO SCH (10:03)
[2017-02-11] MEDS: ASPIRIN (EC) 81 MG TAB PO SCH (10:03)
[2017-02-11] MEDS: LISINOPRIL 20 MG TAB PO SCH (10:03)
[2017-02-11] MEDS: FAMOTIDINE 20 MG TAB PO SCH ×2 (10:03→20:10)
--- NOTE | 2017-02-11 10:40 | PN ---
Date/Time of Note Date/Time of Note DATE: 02/11/17 TIME: 10:33 Assessment/Plan VTE Prophylaxis VTE Prophylaxis Intervention: SCD's Lines/Catheters IV Catheter Type (from Nrs): Saline Lock Urinary Cath still in place: No Assessment/Plan Assessment/Plan 76-year-old male with: 1. RLL Empyema s/p VATS with decortication POD#6 WBC trending down, on RA actually this AM but has been requiring up to 3L NC with new findings of HCAP per ID, continue current antibiotics Meropenem and Vanco. Dr Baker, Pulmonary and CTS following. PICC line placement for outpatient IV abx at discharge hopefully in the next 24 to 48 hrs 2. Acute Post op Anemia, s/p 2 units pRBC last Thursday. Hb stable so far 3. Chronic kidney disease. Must be stage I or II, as the patient's renal function is fairly good currently. Stable renal function so far 4. New onset diabetes mellitus versus hyperglycemia related to the underlying inflammatory or infectious process. Hemoglobin A1c is up to 9.0. ADA diet and on Tradjenta, pre meal insulin. If needed will add Lantus. 5. Hypertension. Normotensive. Prophylaxis. SCDs for DVT ppx and Protonix for GI prophylaxis. DISPOSITION: POD# 6 s/p VATS and decortication Right Lung by CTS Dr Barron, also with HCAP and abx adjusted, if WBC keeps trending down plan for d/c in the next 24 to 48 hrs and will have PICC line placed today. Pulmonary and infectious disease following. Subjective 24 Hr Interval Summary Free Text/Dictation Patient doing better, was on RA this AM actually according to RT WBC trending down Plan for PICC line today and d/c plan home in the next 24 to 48 hrs to complete 6 weeks abx per ID Exam/Review of Systems Vital Signs Vitals Vital Signs Date Time Temp Pulse Resp B/P Pulse Ox O2 Delivery O2 Flow Rate FiO2 02/11/17 09:55 100 20 94 Nasal Cannula 3.0 02/11/17 08:52 98.1 123/60 Intake and Output 02/10/17 02/10/17 02/11/17 15:00 23:00 07:00 Intake Total 1620 ml 650 ml Output Total 400 ml Balance 1620 ml 250 ml Exam Constitutional: alert, oriented, well developed Respiratory: diminished breath sounds (RLL), normal air movement Cardiovascular: nl pulses, regular rate and rhythm Gastrointestinal: non-tender, soft Musculoskeletal: nl extremities to inspection Extremities: normal pulses, other (no edema, clubbing or cynosis ) Neurological: COW TESTER II-XII intact, nl mental status, nl speech, nl strength Results Result Diagram: 02/11/17 0450 02/11/17 0450 Results 24 hrs Laboratory Tests Test 02/10/17 11:50 02/11/17 04:50 02/11/17 05:00 02/11/17 08:16 Bedside Glucose 187 145 White Blood Count 15.0 H Red Blood Count 3.42 L Hemoglobin 9.8 L Hematocrit 29.7 L Mean Corpuscular Volume 86.8 Mean Corpuscular Hemoglobin 28.7 L Mean Corpuscular Hemoglobin Concent 33.0 Red Cell Distribution Width 14.5 Platelet Count 368 Mean Platelet Volume 9.6 Neutrophils % 77.5 H Lymphocytes % 4.4 L Monocytes % 10.4 Eosinophils % 0.9 Basophils % 0.5 Nucleated Red Blood Cells % 0.0 Neutrophils # 11.6 H Lymphocytes # 0.7 L Monocytes # 1.6 H Eosinophils # 0.1 Basophils # 0.1 Nucleated Red Blood Cells # 0.0 Sodium Level 136 Potassium Level 3.7 Chloride Level 99 Carbon Dioxide Level 31 Anion Gap 10 Blood Urea Nitrogen 14 Creatinine 0.87 Glucose Level 154 Calcium Level 8.1 L Phosphorus Level 3.0 Magnesium Level 1.7 Medications Medications Current Medications Ondansetron HCl (Zofran Inj) 4 mg Q6H PRN IV NAUSEA AND/OR VOMITING; Start at 19:30 Acetaminophen (Tylenol Tab) 650 mg Q6H PRN PO PAIN LEVEL 1-3 OR FEVER; Start at 19:30 Acetaminophen/ Hydrocodone Bitart ([place] (5/325)) 1 tab Q6H PRN PO MODERATE PAIN LEVEL 4-6 Last administered on 02/10/17 22:56; Admin Dose 1 TAB; Start at 19:30 Acetaminophen/ Hydrocodone Bitart ([place] (5/325)) 2 tab Q6H PRN PO SEVERE PAIN LEVEL 7-10 Last administered on 02/07/17 22:58; Admin Dose 2 TAB; Start at 19:30 Docusate Sodium (Colace) 100 mg Q12H PRN PO CONSTIPATION; Start 02/03/17 at 19: 30 Magnesium Hydroxide (Milk Of Mag) 30 ml DAILY PRN PO CONSTIPATION; Start at 19:30 Bisacodyl (Dulcolax Supp) 10 mg DAILY PRN [place] CONSTIPATION; Start 02/03/17 at 19 :30 Pantoprazole (Protonix Tab) 40 mg DAILY@06 PO Last administered on 02/11/17 05 :18; Admin Dose 40 MG; Start 02/04/17 at 06:00 Miscellaneous Information 1 ea NOTE XX ; Start 02/03/17 at 20:00 Glucose (Glutose) 15 gm Q15M PRN PO DECREASED GLUCOSE; Start 02/03/17 at 20:00 Glucose (Glutose) 22.5 gm Q15M PRN PO DECREASED GLUCOSE; Start 02/03/17 at 20: 00 Dextrose (D50w Syringe) 25 ml Q15M PRN IV DECREASED GLUCOSE; Start 02/03/17 at 20:00 Dextrose (D50w Syringe) 50 ml Q15M PRN IV DECREASED GLUCOSE; Start 02/03/17 at 20:00 Glucagon (Glucagen) 1 mg Q15M PRN IM DECREASED GLUCOSE; Start 02/03/17 at 20:00 Glucose (Glutose) 15 gm Q15M PRN BUCCAL DECREASED GLUCOSE; Start 02/03/17 at 20 :00 Lorazepam (Ativan) 0.5 mg Q8H PRN IV ANXIETY; Start 02/03/17 at 20:00 Allopurinol (Zyloprim) 100 mg DAILY PO Last administered on 02/11/17 10:03; Admin Dose 100 MG; Start 02/04/17 at 09:00 Aspirin (Halfprin) 81 mg DAILY PO Last administered on 02/11/17 10:03; Admin Dose 81 MG; Start 02/04/17 at 09:00 Cholecalciferol (Vitamin D) 2,000 unit DAILY PO Last administered on 02/11/17 10:03; Admin Dose 2,000 UNIT; Start 02/04/17 at 09:00 Metoclopramide HCl (Reglan) 10 mg Q6H PRN IV NAUSEA AND/OR VOMITING; Start at 19:00 Famotidine (Pepcid) 20 mg Q12 PO Last administered on 02/11/17 10:03; Admin Dose 20 MG; Start 02/05/17 at 21:00 Diphenhydramine HCl (Benadryl) 25 mg Q4H PRN IV PRURITUS; Start 02/05/17 at 19: 30 Linagliptin 5 mg 5 mg DAILY PO Last administered on 02/11/17 10:03; Admin Dose 5 MG; Start 02/06/17 at 10:00 Vancomycin HCl 1.5 gm/Sodium Chloride 250 ml @ 83.333 mls/ hr Q24H IVPB Last administered on 02/10/17 22:36; Admin Dose 83.333 MLS/HR; Start 02/08/17 at 23: 00 Meropenem (Merrem 1 Gm/100 ml (Pmx)) 100 ml @ 200 mls/hr Q12 IVPB Last administered on 02/11/17 10:02; Admin Dose 200 MLS/HR; Start 02/08/17 at 15:00 Lisinopril (Zestril) 20 mg DAILY PO Last administered on 02/11/17 10:03; Admin Dose 20 MG; Start 02/10/17 at 09:00 Miscellaneous Information (*Rx Drug Level Order Reminder*) VANCOMYCIN TROUGH AT 2200 ONCE ONCE XX ; Start 02/11/17 at 22:00; Stop 02/11/17 at 22:01 PAULIE DIAZ Feb 11, 2017 10:40
--- NOTE | 2017-02-11 13:42 | CONS ---
Date/Time of Note Date/Time of Note DATE: 02/11/17 TIME: 13:41 Assessment/Plan Assessment/Plan Chief Complaint/Hosp Course SUBJECTIVE: No acute changes. The patient is alert, feels good, no fevers MICROBIOLOGY: Pleural fluid culture growing strep species susceptible to all the antibiotics. PHYSICAL EXAMINATION: GENERAL: This is well-developed, elderly man who is alert, in no distress. HEENT: Head atraumatic, normocephalic. Sclerae anicteric. Buccal mucosa dry. NECK: Supple, trachea midline. CHEST: Rise symmetrical. Breath sounds diminished. HEART: S1, S2. ABDOMEN: Soft. Bowel sounds present. EXTREMITIES: Without cyanosis. ASSESSMENT: 1. Systemic inflammatory response syndrome secondary to #2. 2. Empyema, status post video-assisted thoracic surgery with total decortication, chest tube was removed. 3. Possible healthcare-associated pneumonia as per CT of the chest done . 4. Diabetes. PLAN: The patient remains stable. White blood cell count continues to decrease. Continue abx. Follow cardiothoracic surgery recommendations. Recommend dc on Invanz daily for 2-3 more weeks when ready DW Dr Patricio Problems: Consultation Date/Type/Reason Admit Date/Time Feb 03, 2017 at 19:13 Initial Consult Date 02/05/17 Type of Consultation: ID Exam/Review of Systems Vital Signs Vitals Vital Signs Date Time Temp Pulse Resp B/P Pulse Ox O2 Delivery O2 Flow Rate FiO2 02/11/17 09:55 100 20 94 Nasal Cannula 3.0 02/11/17 08:52 98.1 123/60 Intake and Output 02/10/17 02/10/17 02/11/17 15:00 23:00 07:00 Intake Total 1620 ml 650 ml Output Total 400 ml Balance 1620 ml 250 ml Results Result Diagram: 02/11/17 0450 02/11/17 0450 Results 24 hrs Laboratory Tests Test 02/11/17 04:50 02/11/17 05:00 02/11/17 08:16 02/11/17 12:16 White Blood Count 15.0 H Red Blood Count 3.42 L Hemoglobin 9.8 L Hematocrit 29.7 L Mean Corpuscular Volume 86.8 Mean Corpuscular Hemoglobin 28.7 L Mean Corpuscular Hemoglobin Concent 33.0 Red Cell Distribution Width 14.5 Platelet Count 368 Mean Platelet Volume 9.6 Neutrophils % 77.5 H Lymphocytes % 4.4 L Monocytes % 10.4 Eosinophils % 0.9 Basophils % 0.5 Nucleated Red Blood Cells % 0.0 Neutrophils # 11.6 H Lymphocytes # 0.7 L Monocytes # 1.6 H Eosinophils # 0.1 Basophils # 0.1 Nucleated Red Blood Cells # 0.0 Sodium Level 136 Potassium Level 3.7 Chloride Level 99 Carbon Dioxide Level 31 Anion Gap 10 Blood Urea Nitrogen 14 Creatinine 0.87 Glucose Level 154 Calcium Level 8.1 L Phosphorus Level 3.0 Magnesium Level 1.7 Bedside Glucose 145 157 Medications Medications Current Medications Ondansetron HCl (Zofran Inj) 4 mg Q6H PRN IV NAUSEA AND/OR VOMITING; Start at 19:30 Acetaminophen (Tylenol Tab) 650 mg Q6H PRN PO PAIN LEVEL 1-3 OR FEVER; Start at 19:30 Acetaminophen/ Hydrocodone Bitart ([place] (5/325)) 1 tab Q6H PRN PO MODERATE PAIN LEVEL 4-6 Last administered on 02/10/17 22:56; Admin Dose 1 TAB; Start at 19:30 Acetaminophen/ Hydrocodone Bitart ([place] (5/325)) 2 tab Q6H PRN PO SEVERE PAIN LEVEL 7-10 Last administered on 02/07/17 22:58; Admin Dose 2 TAB; Start at 19:30 Docusate Sodium (Colace) 100 mg Q12H PRN PO CONSTIPATION; Start 02/03/17 at 19: 30 Magnesium Hydroxide (Milk Of Mag) 30 ml DAILY PRN PO CONSTIPATION; Start at 19:30 Bisacodyl (Dulcolax Supp) 10 mg DAILY PRN [place] CONSTIPATION; Start 02/03/17 at 19 :30 Pantoprazole (Protonix Tab) 40 mg DAILY@06 PO Last administered on 02/11/17 05 :18; Admin Dose 40 MG; Start 02/04/17 at 06:00 Miscellaneous Information 1 ea NOTE XX ; Start 02/03/17 at 20:00 Glucose (Glutose) 15 gm Q15M PRN PO DECREASED GLUCOSE; Start 02/03/17 at 20:00 Glucose (Glutose) 22.5 gm Q15M PRN PO DECREASED GLUCOSE; Start 02/03/17 at 20: 00 Dextrose (D50w Syringe) 25 ml Q15M PRN IV DECREASED GLUCOSE; Start 02/03/17 at 20:00 Dextrose (D50w Syringe) 50 ml Q15M PRN IV DECREASED GLUCOSE; Start 02/03/17 at 20:00 Glucagon (Glucagen) 1 mg Q15M PRN IM DECREASED GLUCOSE; Start 02/03/17 at 20:00 Glucose (Glutose) 15 gm Q15M PRN BUCCAL DECREASED GLUCOSE; Start 02/03/17 at 20 :00 Lorazepam (Ativan) 0.5 mg Q8H PRN IV ANXIETY; Start 02/03/17 at 20:00 Allopurinol (Zyloprim) 100 mg DAILY PO Last administered on 02/11/17 10:03; Admin Dose 100 MG; Start 02/04/17 at 09:00 Aspirin (Halfprin) 81 mg DAILY PO Last administered on 02/11/17 10:03; Admin Dose 81 MG; Start 02/04/17 at 09:00 Cholecalciferol (Vitamin D) 2,000 unit DAILY PO Last administered on 02/11/17 10:03; Admin Dose 2,000 UNIT; Start 02/04/17 at 09:00 Metoclopramide HCl (Reglan) 10 mg Q6H PRN IV NAUSEA AND/OR VOMITING; Start at 19:00 Famotidine (Pepcid) 20 mg Q12 PO Last administered on 02/11/17 10:03; Admin Dose 20 MG; Start 02/05/17 at 21:00 Diphenhydramine HCl (Benadryl) 25 mg Q4H PRN IV PRURITUS; Start 02/05/17 at 19: 30 Linagliptin 5 mg 5 mg DAILY PO Last administered on 02/11/17 10:03; Admin Dose 5 MG; Start 02/06/17 at 10:00 Vancomycin HCl 1.5 gm/Sodium Chloride 250 ml @ 83.333 mls/ hr Q24H IVPB Last administered on 02/10/17 22:36; Admin Dose 83.333 MLS/HR; Start 02/08/17 at 23: 00 Meropenem (Merrem 1 Gm/100 ml (Pmx)) 100 ml @ 200 mls/hr Q12 IVPB Last administered on 02/11/17 10:02; Admin Dose 200 MLS/HR; Start 02/08/17 at 15:00 Lisinopril (Zestril) 20 mg DAILY PO Last administered on 02/11/17 10:03; Admin Dose 20 MG; Start 02/10/17 at 09:00 Miscellaneous Information (*Rx Drug Level Order Reminder*) VANCOMYCIN TROUGH AT 2200 ONCE ONCE XX ; Start 02/11/17 at 22:00; Stop 02/11/17 at 22:01 BALDEV RASMUSSEN NP Feb 11, 2017 13:42
--- NOTE | 2017-02-11 14:10 | CONS ---
Date/Time of Note Date/Time of Note DATE: 02/11/17 TIME: 14:07 Consult Date/Type/Reason Admit Date/Time Feb 03, 2017 at 19:13 Initial Consult Date 02/05/17 Type of Consultation: pulmonary Subjective Patient stable this morning no significant events. Still has mild exertional dyspnea. Objective Vital Signs Date Time Temp Pulse Resp B/P Pulse Ox O2 Delivery O2 Flow Rate FiO2 02/11/17 09:55 100 20 94 Nasal Cannula 3.0 02/11/17 08:52 98.1 123/60 Intake and Output 02/10/17 02/10/17 02/11/17 15:00 23:00 07:00 Intake Total 1620 ml 650 ml Output Total 400 ml Balance 1620 ml 250 ml Exam GENERAL: Elderly gentleman appears comfortable at rest VITAL SIGNS: per chart NECK: Supple. No JVD or lymphadenopathy. CARDIAC EXAM: S1, S2. No added sounds or murmurs. CHEST: Diminished air entry bilaterally with bibasilar rales ABDOMEN: Soft, nontender. No guarding or rebound. EXTREMITIES: No cyanosis, clubbing or edema. NEUROLOGIC: Generalized weakness. No focal deficits. Results/Medications Result Diagram: 02/11/17 0450 02/11/17 0450 Results 24 hrs Laboratory Tests Test 02/11/17 04:50 02/11/17 05:00 02/11/17 08:16 02/11/17 12:16 White Blood Count 15.0 H Red Blood Count 3.42 L Hemoglobin 9.8 L Hematocrit 29.7 L Mean Corpuscular Volume 86.8 Mean Corpuscular Hemoglobin 28.7 L Mean Corpuscular Hemoglobin Concent 33.0 Red Cell Distribution Width 14.5 Platelet Count 368 Mean Platelet Volume 9.6 Neutrophils % 77.5 H Lymphocytes % 4.4 L Monocytes % 10.4 Eosinophils % 0.9 Basophils % 0.5 Nucleated Red Blood Cells % 0.0 Neutrophils # 11.6 H Lymphocytes # 0.7 L Monocytes # 1.6 H Eosinophils # 0.1 Basophils # 0.1 Nucleated Red Blood Cells # 0.0 Sodium Level 136 Potassium Level 3.7 Chloride Level 99 Carbon Dioxide Level 31 Anion Gap 10 Blood Urea Nitrogen 14 Creatinine 0.87 Glucose Level 154 Calcium Level 8.1 L Phosphorus Level 3.0 Magnesium Level 1.7 Bedside Glucose 145 157 Medications Current Medications Ondansetron HCl (Zofran Inj) 4 mg Q6H PRN IV NAUSEA AND/OR VOMITING; Start at 19:30 Acetaminophen (Tylenol Tab) 650 mg Q6H PRN PO PAIN LEVEL 1-3 OR FEVER; Start at 19:30 Acetaminophen/ Hydrocodone Bitart ([place] (5/325)) 1 tab Q6H PRN PO MODERATE PAIN LEVEL 4-6 Last administered on 02/10/17 22:56; Admin Dose 1 TAB; Start at 19:30 Acetaminophen/ Hydrocodone Bitart ([place] (5/325)) 2 tab Q6H PRN PO SEVERE PAIN LEVEL 7-10 Last administered on 02/07/17 22:58; Admin Dose 2 TAB; Start at 19:30 Docusate Sodium (Colace) 100 mg Q12H PRN PO CONSTIPATION; Start 02/03/17 at 19: 30 Magnesium Hydroxide (Milk Of Mag) 30 ml DAILY PRN PO CONSTIPATION; Start at 19:30 Bisacodyl (Dulcolax Supp) 10 mg DAILY PRN [place] CONSTIPATION; Start 02/03/17 at 19 :30 Pantoprazole (Protonix Tab) 40 mg DAILY@06 PO Last administered on 02/11/17 05 :18; Admin Dose 40 MG; Start 02/04/17 at 06:00 Miscellaneous Information 1 ea NOTE XX ; Start 02/03/17 at 20:00 Glucose (Glutose) 15 gm Q15M PRN PO DECREASED GLUCOSE; Start 02/03/17 at 20:00 Glucose (Glutose) 22.5 gm Q15M PRN PO DECREASED GLUCOSE; Start 02/03/17 at 20: 00 Dextrose (D50w Syringe) 25 ml Q15M PRN IV DECREASED GLUCOSE; Start 02/03/17 at 20:00 Dextrose (D50w Syringe) 50 ml Q15M PRN IV DECREASED GLUCOSE; Start 02/03/17 at 20:00 Glucagon (Glucagen) 1 mg Q15M PRN IM DECREASED GLUCOSE; Start 02/03/17 at 20:00 Glucose (Glutose) 15 gm Q15M PRN BUCCAL DECREASED GLUCOSE; Start 02/03/17 at 20 :00 Lorazepam (Ativan) 0.5 mg Q8H PRN IV ANXIETY; Start 02/03/17 at 20:00 Allopurinol (Zyloprim) 100 mg DAILY PO Last administered on 02/11/17 10:03; Admin Dose 100 MG; Start 02/04/17 at 09:00 Aspirin (Halfprin) 81 mg DAILY PO Last administered on 02/11/17 10:03; Admin Dose 81 MG; Start 02/04/17 at 09:00 Cholecalciferol (Vitamin D) 2,000 unit DAILY PO Last administered on 02/11/17 10:03; Admin Dose 2,000 UNIT; Start 02/04/17 at 09:00 Metoclopramide HCl (Reglan) 10 mg Q6H PRN IV NAUSEA AND/OR VOMITING; Start at 19:00 Famotidine (Pepcid) 20 mg Q12 PO Last administered on 02/11/17 10:03; Admin Dose 20 MG; Start 02/05/17 at 21:00 Diphenhydramine HCl (Benadryl) 25 mg Q4H PRN IV PRURITUS; Start 02/05/17 at 19: 30 Linagliptin 5 mg 5 mg DAILY PO Last administered on 02/11/17 10:03; Admin Dose 5 MG; Start 02/06/17 at 10:00 Vancomycin HCl 1.5 gm/Sodium Chloride 250 ml @ 83.333 mls/ hr Q24H IVPB Last administered on 02/10/17 22:36; Admin Dose 83.333 MLS/HR; Start 02/08/17 at 23: 00 Meropenem (Merrem 1 Gm/100 ml (Pmx)) 100 ml @ 200 mls/hr Q12 IVPB Last administered on 02/11/17 10:02; Admin Dose 200 MLS/HR; Start 02/08/17 at 15:00 Lisinopril (Zestril) 20 mg DAILY PO Last administered on 02/11/17 10:03; Admin Dose 20 MG; Start 02/10/17 at 09:00 Miscellaneous Information (*Rx Drug Level Order Reminder*) VANCOMYCIN TROUGH AT 2200 ONCE ONCE XX ; Start 02/11/17 at 22:00; Stop 02/11/17 at 22:01 Assessment/Plan Chief Complaint/Hosp Course Assessment 1. Empyema status post decortication with removal of chest tube 2. Acute on chronic hypoxemia. Possible component of COPD 3. Persistent leukocytosis 4. History of diabetes mellitus Recommendations 1. Continue antibiotics per infectious diseases 2. PICC line placement 3. Encourage out of bed and incentive spirometry 4. Glycemic management per primary team 5. DVT and GI prophylaxis Disposition Patient likely to be discharged home. Problems: PAULA DOMINGUEZ MD, [facility] Feb 11, 2017 14:09
--- NOTE | 2017-02-11 15:49 | RADRPT ---
PROCEDURE: XR Chest. CLINICAL INDICATION: Check PICC line position. TECHNIQUE: Single frontal view. COMPARISON: 02/07/2017. FINDINGS: There is a left arm PICC line with the tip in the lower superior vena cava. Previously noted right chest tubes have been removed. There is air space disease in the right mid and lower lung zones, sl ightly worse than seen previously. The lungs are otherwise clear. The heart is mildly enlarged. There is a small right pleural effusion. There is no left pleural effusion. There is no pneumothorax. IMPRESSION: 1. Satisfactory position of left arm PICC line. 2. Right chest tubes removed. 3. Slightly worse appearance of the right mid and lower lung zone consolidation. 4. Mild cardiomegaly. 5. Small right pleural effusion. RPTAT: QQ .Kyle Vizcarra MD, MD Date Time Electronically viewed and signed by .Kyle Vizcarra MD, MD on 02/11/2017 15:49 .R/
[2017-02-11] MEDS ORDERED: SOD CHLORIDE 0.9% 100 ML ONE (16:16)
--- NOTE | 2017-02-11 16:48 | RADRPT ---
PROCEDURE: Ultrasound guidance for placement of needle in left upper extremity vein. CLINICAL INDICATION: Venous access. TECHNIQUE: Limited sonography of the left upper extremity was performed. Ultrasound images were recorded and s tored in the patient's medical record. COMPARISON: None. FINDINGS: The ultrasound images demonstrate a patent left upper extremity vein. The PICC line was inserted by the PICC line nurse. IMPRESSION: 1. Ultrasound guidance for a needle placement in a left upper extremity vein. 2. The left upper extremity vein is patent. RPTAT: QQ .Kyle Vizcarra MD, MD Date Time Electronically viewed and signed by .Kyle Vizcarra MD, MD on 02/11/2017 16:48 .R/
[2017-02-11 20:00] VITALS: BP 135/63; RESP 20
[2017-02-11] MEDS: ZOLPIDEM 5 MG TAB PO PRN (23:13)
[2017-02-11] MEDS: HYDROCODONE/APAP (5/325) TAB PO PRN (23:13)
[2017-02-11] MEDS: VANCOMYCIN 1.5 GM in SOD CHLORIDE 0.9% 250 ML IVPB SCH (23:50)
[2017-02-12] MEDS: ALBUTEROL/IPRATROPIUM (NEB) 3 ML AMP NEB SCH ×6 (01:00→21:00)
[2017-02-12] MEDS: PANTOPRAZOLE (EC) 40 MG TAB PO SCH (05:40)
[2017-02-12 06:05] LABS: ADD SCAN DIFF NO
[2017-02-12 06:16] LABS: ABNORMAL IP MESSAGE 1; BASOPHILS % 0.3 % (0.0-2.0); EOSINOPHILS # 0.2 10^3/ul (0.0-0.5); EOSINOPHILS % 1.3 % (0.0-7.0); HEMATOCRIT 30.6 % (42.0-52.0); HEMOGLOBIN 9.7 g/dl (14.0-18.0); LYMPHOCYTES # 0.7 10^3/ul (0.8-2.9); LYMPHOCYTES % 5.6 % (15.0-51.0); MEAN CORPUSCULAR HGB CONC 31.7 g/dl (32.0-37.0); MEAN CORPUSCULAR VOLUME 88.4 fl (82.0-101.0); MEAN PLATELET VOLUME 9.9 fl (7.4-10.4); MONOCYTE # 1.5 10^3/ul (0.3-0.9); MONOCYTES % 11.6 % (0.0-11.0); NEUTROPHIL # 9.7 10^3/ul (1.6-7.5); NEUTROPHILS % 74.6 % (39.0-77.0); PLATELET COUNT 324 10^3/UL (140-415); RED BLOOD COUNT 3.46 10^6/ul (4.70-6.10); RED CELL DISTRIBUTION WIDTH 14.7 % (11.5-14.5)
[2017-02-12 06:26] LABS: POTASSIUM 3.9 mmol/L (3.5-5.1)
[2017-02-12 06:29] LABS: CREATININE 0.86 mg/dl (0.61-1.24)
[2017-02-12 06:30] LABS: CALCIUM 8.1 mg/dl (8.4-10.2)
[2017-02-12 06:39] LABS: PHOSPHORUS 3.3 mg/dl (2.5-4.9)
[2017-02-12 06:40] LABS: MAGNESIUM 1.8 mg/dl (1.7-2.5)
[2017-02-12 08:03] VITALS: BP 135/59; RESP 20
[2017-02-12] MEDS: INSULIN ASPART [NOVOLOG] 3 ML PEN SC SCH ×3 (08:21→17:45)
[2017-02-12] MEDS: MEROPENEM 1 GM/100 ML (PMX) 100 ML IVPB SCH ×2 (08:21→20:11)
[2017-02-12] MEDS: CHOLECALCIFEROL 2,000 UNIT CAP PO SCH (08:24)
[2017-02-12] MEDS: ASPIRIN (EC) 81 MG TAB PO SCH (08:24)
[2017-02-12] MEDS: FAMOTIDINE 20 MG TAB PO SCH ×2 (08:24→20:10)
[2017-02-12] MEDS: LINAGLIPTIN 5 MG TABLET PO SCH (08:24)
[2017-02-12] MEDS: ALLOPURINOL 100 MG TAB PO SCH (08:24)
[2017-02-12] MEDS: LISINOPRIL 20 MG TAB PO SCH (08:25)
--- NOTE | 2017-02-12 10:25 | PN ---
Date/Time of Note Date/Time of Note DATE: 02/12/17 TIME: 10:19 Assessment/Plan VTE Prophylaxis VTE Prophylaxis Intervention: SCD's Lines/Catheters IV Catheter Type (from Nrsg): PICC Line Central line still needed: Yes (for home IV abx ) Urinary Cath still in place: No Assessment/Plan Assessment/Plan 76-year-old male with: 1. RLL Empyema s/p VATS with decortication POD#7 WBC keeps trending down, O2 requirement varying between RA and 3L NC with new findings of HCAP per ID, continue current antibiotics Meropenem and Vanco with planed discharged on Invanz +/- Vanco x [address] Baker, Pulmonary and CTS following. Discharge hopefully in the next 24 hrs 2. Acute Post op Anemia, s/p 2 units pRBC last Thursday. Hb stable so far 3. Chronic kidney disease. Must be stage I or II, as the patient's renal function is fairly good currently. Stable renal function so far 4. New onset diabetes mellitus versus hyperglycemia related to the underlying inflammatory or infectious process. Hemoglobin A1c is up to 9.0. ADA diet and on Tradjenta, pre meal insulin. 5. Hypertension. Normotensive. Prophylaxis. SCDs for DVT ppx and Protonix for GI prophylaxis. DISPOSITION: POD# 7 s/p VATS and decortication Right Lung by CTS Dr Barron, also with HCAP and abx adjusted, WBC keeps trending down plan for d/c in the next 24 with Home O2 and IV abx x 3 weeks and follow up with Dr Barron as outpatient. Pulmonary and infectious disease following. Subjective 24 Hr Interval Summary Free Text/Dictation Patient doing better, still on 3L NC but no distress WBC coming down slowly and appreciate ID recs, will clarify if needs Vanco for home Case management to start arranging home d/c for tomorrow Exam/Review of Systems Vital Signs Vitals Vital Signs Date Time Temp Pulse Resp B/P Pulse Ox O2 Delivery O2 Flow Rate FiO2 02/12/17 08:45 99 96 Nasal Cannula 2.0 02/12/17 08:03 97.4 20 135/59 02/11/17 16:49 32 Intake and Output 02/11/17 02/11/17 02/12/17 15:00 23:00 07:00 Intake Total 100 ml 740 ml 620 ml Output Total 630 ml 550 ml Balance 100 ml 110 ml 70 ml Exam Constitutional: alert, oriented, well developed Respiratory: diminished breath sounds (RLL), normal air movement Cardiovascular: nl pulses, regular rate and rhythm Gastrointestinal: non-tender, soft Musculoskeletal: nl extremities to inspection Extremities: normal pulses, other (no edema, clubbingor cyanosis ) Neurological: INSIDE [employer]ES [employer] II-XII intact, nl mental status, nl speech, nl strength Results Result Diagram: 02/12/174 02/12/17 0454 Results 24 hrs Laboratory Tests Test 02/11/17 12:16 02/11/17 17:22 02/11/17 21:55 02/12/17 04:54 Bedside Glucose 157 140 Vancomycin Level Trough 11.6 White Blood Count 13.0 H Red Blood Count 3.46 L Hemoglobin 9.7 L Hematocrit 30.6 L Mean Corpuscular Volume 88.4 Mean Corpuscular Hemoglobin 28.0 L Mean Corpuscular Hemoglobin Concent 31.7 L Red Cell Distribution Width 14.7 H Platelet Count 324 Mean Platelet Volume 9.9 Neutrophils % 74.6 Lymphocytes % 5.6 L Monocytes % 11.6 H Eosinophils % 1.3 Basophils % 0.3 Nucleated Red Blood Cells % 0.0 Neutrophils # 9.7 H Lymphocytes # 0.7 L Monocytes # 1.5 H Eosinophils # 0.2 Basophils # 0.0 Nucleated Red Blood Cells # 0.0 Sodium Level 135 Potassium Level 3.9 Chloride Level 97 Carbon Dioxide Level 34 H Anion Gap 8 Blood Urea Nitrogen 13 Creatinine 0.86 Glucose Level 123 Calcium Level 8.1 L Phosphorus Level 3.3 Magnesium Level 1.8 Test 02/12/17 08:16 Bedside Glucose 144 Medications Medications Current Medications Ondansetron HCl (Zofran Inj) 4 mg Q6H PRN IV NAUSEA AND/OR VOMITING; Start at 19:30 Acetaminophen (Tylenol Tab) 650 mg Q6H PRN PO PAIN LEVEL 1-3 OR FEVER; Start at 19:30 Acetaminophen/ Hydrocodone Bitart ([place] (5/325)) 1 tab Q6H PRN PO MODERATE PAIN LEVEL 4-6 Last administered on 02/11/17t 23:13; Admin Dose 1 TAB; Start at 19:30 Acetaminophen/ Hydrocodone Bitart ([place] (5/325)) 2 tab Q6H PRN PO SEVERE PAIN LEVEL 7-10 Last administered on 02/07/17 22:58; Admin Dose 2 TAB; Start at 19:30 Docusate Sodium (Colace) 100 mg Q12H PRN PO CONSTIPATION; Start 02/03/17 at 19: 30 Magnesium Hydroxide (Milk Of Mag) 30 ml DAILY PRN PO CONSTIPATION; Start at 19:30 Bisacodyl (Dulcolax Supp) 10 mg DAILY PRN [place] CONSTIPATION; Start 02/03/17 at 19 :30 Pantoprazole (Protonix Tab) 40 mg DAILY@06 PO Last administered on 02/12/17 05 :40; Admin Dose 40 MG; Start 02/04/17 at 06:00 Miscellaneous Information 1 ea NOTE XX ; Start 02/03/17 at 20:00 Glucose (Glutose) 15 gm Q15M PRN PO DECREASED GLUCOSE; Start 02/03/17 at 20:00 Glucose (Glutose) 22.5 gm Q15M PRN PO DECREASED GLUCOSE; Start 02/03/17 at 20: 00 Dextrose (D50w Syringe) 25 ml Q15M PRN IV DECREASED GLUCOSE; Start 02/03/17 at 20:00 Dextrose (D50w Syringe) 50 ml Q15M PRN IV DECREASED GLUCOSE; Start 02/03/17 at 20:00 Glucagon (Glucagen) 1 mg Q15M PRN IM DECREASED GLUCOSE; Start 02/03/17 at 20:00 Glucose (Glutose) 15 gm Q15M PRN BUCCAL DECREASED GLUCOSE; Start 02/03/17 at 20 :00 Lorazepam (Ativan) 0.5 mg Q8H PRN IV ANXIETY; Start 02/03/17 at 20:00 Allopurinol (Zyloprim) 100 mg DAILY PO Last administered on 02/12/17 08:24; Admin Dose 100 MG; Start 02/04/17 at 09:00 Aspirin (Halfprin) 81 mg DAILY PO Last administered on 02/12/17 08:24; Admin Dose 81 MG; Start 02/04/17 at 09:00 Cholecalciferol (Vitamin D) 2,000 unit DAILY PO Last administered on 02/12/17 08:24; Admin Dose 2,000 UNIT; Start 02/04/17 at 09:00 Metoclopramide HCl (Reglan) 10 mg Q6H PRN IV NAUSEA AND/OR VOMITING; Start at 19:00 Famotidine (Pepcid) 20 mg Q12 PO Last administered on 02/12/17 08:24; Admin Dose 20 MG; Start 02/05/17 at 21:00 Diphenhydramine HCl (Benadryl) 25 mg Q4H PRN IV PRURITUS; Start 02/05/17 at 19: 30 Linagliptin 5 mg 5 mg DAILY PO Last administered on 02/12/17 08:24; Admin Dose 5 MG; Start 02/06/17 at 10:00 Vancomycin HCl 1.5 gm/Sodium Chloride 250 ml @ 83.333 mls/ hr Q24H IVPB Last administered on 02/11/17 23:50; Admin Dose 83.333 MLS/HR; Start 02/08/17 at 23: 00 Meropenem (Merrem 1 Gm/100 ml (Pmx)) 100 ml @ 200 mls/hr Q12 IVPB Last administered on 02/12/17 08:21; Admin Dose 200 MLS/HR; Start 02/08/17 at 15:00 Lisinopril (Zestril) 20 mg DAILY PO Last administered on 02/12/17 08:25; Admin Dose 20 MG; Start 02/10/17 at 09:00 IV Flush (NS 10 ml) 10 ml PRN PRN IV IV PROTOCOL; Start 02/11/17 at 16:00 PAULIE DIAZ Feb 12, 2017 10:25
--- NOTE | 2017-02-12 16:00 | CONS ---
Date/Time of Note Date/Time of Note DATE: 02/12/17 TIME: 15:59 Assessment/Plan Assessment/Plan Chief Complaint/Hosp Course SUBJECTIVE: alert, feels good MICROBIOLOGY: Pleural fluid culture growing strep species susceptible to all the antibiotics. PHYSICAL EXAMINATION: GENERAL: This is well-developed, elderly man who is alert, in no distress. HEENT: Head atraumatic, normocephalic. Sclerae anicteric. Buccal mucosa dry. NECK: Supple, trachea midline. CHEST: Rise symmetrical. Breath sounds diminished. HEART: S1, S2. ABDOMEN: Soft. Bowel sounds present. EXTREMITIES: Without cyanosis. ASSESSMENT: 1. Systemic inflammatory response syndrome secondary to #2. 2. Empyema, status post video-assisted thoracic surgery with total decortication, chest tube was removed. 3. Possible healthcare-associated pneumonia as per CT of the chest done . 4. Diabetes. PLAN: The patient remains stable. White blood cell count continues to decrease. Will change anx to Invanz in am and continue for 2 weeks, s/p PICC DW pt Problems: Consultation Date/Type/Reason Admit Date/Time Feb 03, 2017 at 19:13 Initial Consult Date 02/05/17 Type of Consultation: id Exam/Review of Systems Vital Signs Vitals Vital Signs Date Time Temp Pulse Resp B/P Pulse Ox O2 Delivery O2 Flow Rate FiO2 02/12/17 10:55 Nasal Cannula 3.0 02/12/17 08:45 99 96 02/12/17 08:03 97.4 20 135/59 02/11/17 16:49 32 Intake and Output 02/11/17 02/11/17 02/12/17 15:00 23:00 07:00 Intake Total 100 ml 740 ml 620 ml Output Total 630 ml 550 ml Balance 100 ml 110 ml 70 ml Results Result Diagram: 02/12/17 0454 02/12/17 0454 Results 24 hrs Laboratory Tests Test 02/11/17 17:22 02/11/17 21:55 02/12/17 04:54 02/12/17 08:16 Bedside Glucose 140 144 Vancomycin Level Trough 11.6 White Blood Count 13.0 H Red Blood Count 3.46 L Hemoglobin 9.7 L Hematocrit 30.6 L Mean Corpuscular Volume 88.4 Mean Corpuscular Hemoglobin 28.0 L Mean Corpuscular Hemoglobin Concent 31.7 L Red Cell Distribution Width 14.7 H Platelet Count 324 Mean Platelet Volume 9.9 Neutrophils % 74.6 Lymphocytes % 5.6 L Monocytes % 11.6 H Eosinophils % 1.3 Basophils % 0.3 Nucleated Red Blood Cells % 0.0 Neutrophils # 9.7 H Lymphocytes # 0.7 L Monocytes # 1.5 H Eosinophils # 0.2 Basophils # 0.0 Nucleated Red Blood Cells # 0.0 Sodium Level 135 Potassium Level 3.9 Chloride Level 97 Carbon Dioxide Level 34 H Anion Gap 8 Blood Urea Nitrogen 13 Creatinine 0.86 Glucose Level 123 Calcium Level 8.1 L Phosphorus Level 3.3 Magnesium Level 1.8 Test 02/12/17 11:33 Bedside Glucose 130 Medications Medications Current Medications Ondansetron HCl (Zofran Inj) 4 mg Q6H PRN IV NAUSEA AND/OR VOMITING; Start at 19:30 Acetaminophen (Tylenol Tab) 650 mg Q6H PRN PO PAIN LEVEL 1-3 OR FEVER; Start at 19:30 Acetaminophen/ Hydrocodone Bitart ([place] (5/325)) 1 tab Q6H PRN PO MODERATE PAIN LEVEL 4-6 Last administered on 02/11/17 23:13; Admin Dose 1 TAB; Start at 19:30 Acetaminophen/ Hydrocodone Bitart ([place] (5/325)) 2 tab Q6H PRN PO SEVERE PAIN LEVEL 7-10 Last administered on 02/07/17 22:58; Admin Dose 2 TAB; Start at 19:30 Docusate Sodium (Colace) 100 mg Q12H PRN PO CONSTIPATION; Start 02/03/17 at 19: 30 Magnesium Hydroxide (Milk Of Mag) 30 ml DAILY PRN PO CONSTIPATION; Start at 19:30 Bisacodyl (Dulcolax Supp) 10 mg DAILY PRN [place] CONSTIPATION; Start 02/03/17 at 19 :30 Pantoprazole (Protonix Tab) 40 mg DAILY@06 PO Last administered on 02/12/17 05 :40; Admin Dose 40 MG; Start 02/04/17 at 06:00 Miscellaneous Information 1 ea NOTE XX ; Start 02/03/17 at 20:00 Glucose (Glutose) 15 gm Q15M PRN PO DECREASED GLUCOSE; Start 02/03/17 at 20:00 Glucose (Glutose) 22.5 gm Q15M PRN PO DECREASED GLUCOSE; Start 02/03/17 at 20: 00 Dextrose (D50w Syringe) 25 ml Q15M PRN IV DECREASED GLUCOSE; Start 02/03/17 at 20:00 Dextrose (D50w Syringe) 50 ml Q15M PRN IV DECREASED GLUCOSE; Start 02/03/17 at 20:00 Glucagon (Glucagen) 1 mg Q15M PRN IM DECREASED GLUCOSE; Start 02/03/17 at 20:00 Glucose (Glutose) 15 gm Q15M PRN BUCCAL DECREASED GLUCOSE; Start 02/03/17 at 20 :00 Lorazepam (Ativan) 0.5 mg Q8H PRN IV ANXIETY; Start 02/03/17 at 20:00 Allopurinol (Zyloprim) 100 mg DAILY PO Last administered on 02/12/17 08:24; Admin Dose 100 MG; Start 02/04/17 at 09:00 Aspirin (Halfprin) 81 mg DAILY PO Last administered on 02/12/17 08:24; Admin Dose 81 MG; Start 02/04/17 at 09:00 Cholecalciferol (Vitamin D) 2,000 unit DAILY PO Last administered on 02/12/17 08:24; Admin Dose 2,000 UNIT; Start 02/04/17 at 09:00 Metoclopramide HCl (Reglan) 10 mg Q6H PRN IV NAUSEA AND/OR VOMITING; Start at 19:00 Famotidine (Pepcid) 20 mg Q12 PO Last administered on 02/12/17 08:24; Admin Dose 20 MG; Start 02/05/17 at 21:00 Diphenhydramine HCl (Benadryl) 25 mg Q4H PRN IV PRURITUS; Start 02/05/17 at 19: 30 Linagliptin 5 mg 5 mg DAILY PO Last administered on 02/12/17 08:24; Admin Dose 5 MG; Start 02/06/17 at 10:00 Vancomycin HCl 1.5 gm/Sodium Chloride 250 ml @ 83.333 mls/ hr Q24H IVPB Last administered on 02/11/17 23:50; Admin Dose 83.333 MLS/HR; Start 02/08/17 at 23: 00 Meropenem (Merrem 1 Gm/100 ml (Pmx)) 100 ml @ 200 mls/hr Q12 IVPB Last administered on 02/12/17 08:21; Admin Dose 200 MLS/HR; Start 02/08/17 at 15:00 Lisinopril (Zestril) 20 mg DAILY PO Last administered on 02/12/17 08:25; Admin Dose 20 MG; Start 02/10/17 at 09:00 IV Flush (NS 10 ml) 10 ml PRN PRN IV IV PROTOCOL; Start 02/11/17 at 16:00 BALDEV RASMUSSEN NP Feb 12, 2017 16:00
[2017-02-12] MEDS: HYDROCODONE/APAP (5/325) TAB PO PRN (20:11)
[2017-02-12] MEDS: VANCOMYCIN 1.5 GM in SOD CHLORIDE 0.9% 250 ML IVPB SCH (23:16)
[2017-02-12] MEDS: ZOLPIDEM 5 MG TAB PO PRN (23:16)
[2017-02-13] MEDS: ALBUTEROL/IPRATROPIUM (NEB) 3 ML AMP NEB SCH ×4 (01:00→13:00)
[2017-02-13 05:11] LABS: ADD SCAN DIFF NO
[2017-02-13 05:27] LABS: ABNORMAL IP MESSAGE 1; BASOPHILS % 0.2 % (0.0-2.0); EOSINOPHILS # 0.1 10^3/ul (0.0-0.5); HEMOGLOBIN 9.9 g/dl (14.0-18.0); LYMPHOCYTES # 0.7 10^3/ul (0.8-2.9); LYMPHOCYTES % 5.3 % (15.0-51.0); MEAN CORPUSCULAR HEMOGLOBIN 27.5 pg (29.0-33.0); MEAN CORPUSCULAR HGB CONC 30.9 g/dl (32.0-37.0); MEAN CORPUSCULAR VOLUME 88.9 fl (82.0-101.0); MEAN PLATELET VOLUME 9.7 fl (7.4-10.4); MONOCYTE # 1.5 10^3/ul (0.3-0.9); MONOCYTES % 10.9 % (0.0-11.0); NEUTROPHIL # 10.5 10^3/ul (1.6-7.5); NEUTROPHILS % 77.1 % (39.0-77.0); PLATELET COUNT 309 10^3/UL (140-415); RED CELL DISTRIBUTION WIDTH 14.7 % (11.5-14.5); WHITE BLOOD COUNT 13.6 10^3/ul (4.8-10.8)
[2017-02-13 05:31] LABS: POTASSIUM 3.8 mmol/L (3.5-5.1)
[2017-02-13 05:34] LABS: CREATININE 0.86 mg/dl (0.61-1.24)
[2017-02-13 05:35] LABS: CALCIUM 8.4 mg/dl (8.4-10.2)
[2017-02-13] MEDS: PANTOPRAZOLE (EC) 40 MG TAB PO SCH (06:09)
[2017-02-13 07:35] VITALS: BP 131/60; RESP 16
[2017-02-13] MEDS: LISINOPRIL 20 MG TAB PO SCH (08:12)
[2017-02-13] MEDS: FAMOTIDINE 20 MG TAB PO SCH (08:12)
[2017-02-13] MEDS: ALLOPURINOL 100 MG TAB PO SCH (08:12)
[2017-02-13] MEDS: CHOLECALCIFEROL 2,000 UNIT CAP PO SCH (08:12)
[2017-02-13] MEDS: MEROPENEM 1 GM/100 ML (PMX) 100 ML IVPB SCH (08:12)
[2017-02-13] MEDS: ASPIRIN (EC) 81 MG TAB PO SCH (08:13)
[2017-02-13] MEDS: LINAGLIPTIN 5 MG TABLET PO SCH (08:13)
[2017-02-13] MEDS: INSULIN ASPART [NOVOLOG] 3 ML PEN SC SCH ×2 (08:15→11:39)
--- NOTE | 2017-02-13 10:27 | PDOCDIS ---
Discharge Instructions CONDITION Patient Condition: Stable HOME CARE INSTRUCTIONS: Diet Instructions: Regular ACTIVITY: Activity Restrictions: Slowly Increase Activity FOLLOW UP/APPOINTMENTS Appointments Follow up with Dr Elmore within 1 to 2 weeks Follow up with Dr Barron in 1 week Follow up with Dr Baker in 2 weeks Home Health PT Home Health RN for IV abx Home O2 2L NC as needed with exertion or at night Outpatient CXR 2 views to follow up RLL pneumonia in 7 to 10 days, on 02/23/17 with results sent to PCP and Pulmonary PAULIE Chavez Feb 13, 2017 10:27
[2017-02-13] MEDS ORDERED: LINA5TAB PO (10:36)
[2017-02-13] MEDS ORDERED: LEVO500T10 PO (10:36)
[2017-02-13] MEDS ORDERED: ERTA1VIA IV (10:36)
[2017-02-13] MEDS ORDERED: ACID1TAB14 PO (10:36)
[2017-02-13] MEDS ORDERED: HYDR-3498 PO (10:36)
[2017-02-13] MEDS ORDERED: FAMO20TA18 PO (10:36)
[2017-02-13] MEDS ORDERED: LEVOFLOXACIN 500 MG TAB PO SCH (11:00)
--- NOTE | 2017-02-13 14:02 | PN ---
Date/Time of Note Date/Time of Note DATE: 02/13/17 TIME: 13:51 Assessment/Plan VTE Prophylaxis VTE Prophylaxis Intervention: SCD's Lines/Catheters IV Catheter Type (from Nrs): PICC Line Central line still needed: Yes (for IV abx at home) Urinary Cath still in place: No Assessment/Plan Assessment/Plan 76-year-old male with: 1. RLL Empyema s/p VATS with decortication POD#8 WBC stable and minimal O2 requirement Discussed d/c plan with Pulmonary and ID D/c home today with IV Invanz and Levaquin po x 14 days, Home O2 2L NC as needed. Outpatient follow up with PCP, CT surgery Dr Barron, Pulmonary Dr Elmore, ID Dr Baker within 1 to 2 weeks Follow up 2 view CXR on 02/23/17 to follow up RLL infiltrate 2. Acute Post op Anemia, s/p 2 units pRBC last Thursday. Hb stable so far. Resolved 3. Chronic kidney disease. Must be stage I or II, as the patient's renal function is fairly good currently. Stable renal function so far 4. New onset diabetes mellitus versus hyperglycemia related to the underlying inflammatory or infectious process. Hemoglobin A1c is up to 9.0. ADA diet and on Tradjenta, patient has a Glucometer at home 5. Hypertension. Back on home meds Prophylaxis. SCDs for DVT ppx and Protonix for GI prophylaxis. DISPOSITION: POD# 8 s/p VATS and decortication Right Lung by CTS Dr Barron, also with HCAP and abx adjusted, WBC stable. D/c home today, with Home O2 and IV abx x 2 weeks and follow up with Dr Barron, Dr Elmore, Dr Baker and PCP as outpatient. Subjective 24 Hr Interval Summary Free Text/Dictation Patient doing well, no new complaints D/c home today with IV Invanz x 2 weeks, Home O2 and multiple follow ups to be arranged through [facility] Exam/Review of Systems Vital Signs Vitals Vital Signs Date Time Temp Pulse Resp B/P Pulse Ox O2 Delivery O2 Flow Rate FiO2 02/13/17 08:51 Nasal Cannula 2.0 02/13/17 07:35 97.9 81 16 131/60 95 02/11/17 16:49 32 Intake and Output 02/12/17 02/12/1717 15:00 23:00 07:00 Intake Total 100 ml 930 ml 1000 ml Balance 100 ml 930 ml 1000 ml Exam Constitutional: alert, oriented, well developed Respiratory: clear to auscultation, normal air movement Cardiovascular: nl pulses, regular rate and rhythm Gastrointestinal: non-tender, soft Musculoskeletal: nl extremities to inspection Extremities: normal pulses, other (no edema, clubbing or cyanosis ) 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, nl mental status, nl speech, nl strength Results Result Diagram: 02/13/17 0455 02/13/17 0455 Results 24 hrs Laboratory Tests Test 02/12/17 17:08 02/13/17 04:55 02/13/17 07:54 02/13/17 11:32 Bedside Glucose 139 98 129 White Blood Count 13.6 H Red Blood Count 3.60 L Hemoglobin 9.9 L Hematocrit 32.0 L Mean Corpuscular Volume 88.9 Mean Corpuscular Hemoglobin 27.5 L Mean Corpuscular Hemoglobin Concent 30.9 L Red Cell Distribution Width 14.7 H Platelet Count 309 Mean Platelet Volume 9.7 Neutrophils % 77.1 H Lymphocytes % 5.3 L Monocytes % 10.9 Eosinophils % 1.0 Basophils % 0.2 Nucleated Red Blood Cells % 0.0 Neutrophils # 10.5 H Lymphocytes # 0.7 L Monocytes # 1.5 H Eosinophils # 0.1 Basophils # 0.0 Nucleated Red Blood Cells # 0.0 Sodium Level 138 Potassium Level 3.8 Chloride Level 100 Carbon Dioxide Level 31 Anion Gap 11 Blood Urea Nitrogen 14 Creatinine 0.86 Glucose Level 102 Calcium Level 8.4 Medications Medications Current Medications Ondansetron HCl (Zofran Inj) 4 mg Q6H PRN IV NAUSEA AND/OR VOMITING; Start at 19:30 Acetaminophen (Tylenol Tab) 650 mg Q6H PRN PO PAIN LEVEL 1-3 OR FEVER; Start at 19:30 Acetaminophen/ Hydrocodone Bitart ([place] (5/325)) 1 tab Q6H PRN PO MODERATE PAIN LEVEL 4-6 Last administered on 02/12/17t 20:11; Admin Dose 1 TAB; Start at 19:30 Acetaminophen/ Hydrocodone Bitart ([place] (5/325)) 2 tab Q6H PRN PO SEVERE PAIN LEVEL 7-10 Last administered on 02/07/17 22:58; Admin Dose 2 TAB; Start at 19:30 Docusate Sodium (Colace) 100 mg Q12H PRN PO CONSTIPATION; Start 02/03/17 at 19: 30 Magnesium Hydroxide (Milk Of Mag) 30 ml DAILY PRN PO CONSTIPATION; Start at 19:30 Bisacodyl (Dulcolax Supp) 10 mg DAILY PRN [place] CONSTIPATION; Start 02/03/17 at 19 :30 Pantoprazole (Protonix Tab) 40 mg DAILY@06 PO Last administered on 02/13/17 06 :09; Admin Dose 40 MG; Start 02/04/17 at 06:00 Miscellaneous Information 1 ea NOTE XX ; Start 02/03/17 at 20:00 Glucose (Glutose) 15 gm Q15M PRN PO DECREASED GLUCOSE; Start 02/03/17 at 20:00 Glucose (Glutose) 22.5 gm Q15M PRN PO DECREASED GLUCOSE; Start 02/03/17 at 20: 00 Dextrose (D50w Syringe) 25 ml Q15M PRN IV DECREASED GLUCOSE; Start 02/03/17 at 20:00 Dextrose (D50w Syringe) 50 ml Q15M PRN IV DECREASED GLUCOSE; Start 02/03/17 at 20:00 Glucagon (Glucagen) 1 mg Q15M PRN IM DECREASED GLUCOSE; Start 02/03/17 at 20:00 Glucose (Glutose) 15 gm Q15M PRN BUCCAL DECREASED GLUCOSE; Start 02/03/17 at 20 :00 Lorazepam (Ativan) 0.5 mg Q8H PRN IV ANXIETY; Start 02/03/17 at 20:00 Allopurinol (Zyloprim) 100 mg DAILY PO Last administered on 02/13/17 08:12; Admin Dose 100 MG; Start 02/04/17 at 09:00 Aspirin (Halfprin) 81 mg DAILY PO Last administered on 02/13/17 08:13; Admin Dose 81 MG; Start 02/04/17 at 09:00 Cholecalciferol (Vitamin D) 2,000 unit DAILY PO Last administered on 02/13/17 08:12; Admin Dose 2,000 UNIT; Start 02/04/17 at 09:00 Metoclopramide HCl (Reglan) 10 mg Q6H PRN IV NAUSEA AND/OR VOMITING; Start at 19:00 Famotidine (Pepcid) 20 mg Q12 PO Last administered on 02/13/17 08:12; Admin Dose 20 MG; Start 02/05/17 at 21:00 Diphenhydramine HCl (Benadryl) 25 mg Q4H PRN IV PRURITUS; Start 02/05/17 at 19: 30 Linagliptin 5 mg 5 mg DAILY PO Last administered on 02/13/17 08:13; Admin Dose 5 MG; Start 02/06/17 at 10:00 Vancomycin HCl/ Sodium Chloride (Vancocin/NS) 250 ml @ 83.333 mls/ hr Q24H IVPB Last administered on 02/12/17 23:16; Admin Dose 83.333 MLS/HR; Start at 23:00 Lisinopril (Zestril) 20 mg DAILY PO Last administered on 02/13/17 08:12; Admin Dose 20 MG; Start 02/10/17 at 09:00 IV Flush 10 ml 10 ml PRN PRN IV IV PROTOCOL; Start 02/11/17 at 16:00 Ertapenem/Sodium Chloride (Invanz/NS) 100 ml @ 200 mls/hr Q24H IVPB ; Start at 16:00 Levofloxacin (Levaquin) 500 mg DAILY PO Last administered on 02/13/17 11:39; Admin Dose 500 MG; Start 02/13/17 at 11:00 PAULIE DIAZ Feb 13, 2017 14:01
[2017-02-13] MEDS ORDERED: ERTAPENEM SODIUM 1 GM in SOD CHLORIDE 0.9% 100 ML IVPB SCH (16:00)
--- NOTE | 2017-02-13 16:03 | CONS ---
Date/Time of Note Date/Time of Note DATE: 02/13/17 TIME: 16:02 Assessment/Plan Assessment/Plan Chief Complaint/Hosp Course SUBJECTIVE: alert, feels good MICROBIOLOGY: Pleural fluid culture growing strep species susceptible to all the antibiotics. PHYSICAL EXAMINATION: GENERAL: This is well-developed, elderly man who is alert, in no distress. HEENT: Head atraumatic, normocephalic. Sclerae anicteric. Buccal mucosa dry. NECK: Supple, trachea midline. CHEST: Rise symmetrical. Breath sounds diminished. HEART: S1, S2. ABDOMEN: Soft. Bowel sounds present. EXTREMITIES: Without cyanosis. ASSESSMENT: 1. Systemic inflammatory response syndrome secondary to #2. 2. Empyema, status post video-assisted thoracic surgery with total decortication, chest tube was removed. 3. Possible healthcare-associated pneumonia as per CT of the chest done . 4. Diabetes. PLAN: The patient remains stable. Pending dc on Invanz and PO Levaquin for 2 weeks DW pt Problems: Consultation Date/Type/Reason Admit Date/Time Feb 03, 2017 at 19:13 Initial Consult Date 02/05/17 Type of Consultation: id Exam/Review of Systems Vital Signs Vitals Vital Signs Date Time Temp Pulse Resp B/P Pulse Ox O2 Delivery O2 Flow Rate FiO2 02/13/17 08:51 Nasal Cannula 2.0 02/13/17 07:35 97.9 81 16 131/60 95 02/11/17 16:49 32 Intake and Output 02/12/17 02/12/17 02/13/17 15:00 23:00 07:00 Intake Total 100 ml 930 ml 1000 ml Balance 100 ml 930 ml 1000 ml Results Result Diagram: 02/13/17 0455 02/13/17 0455 Results 24 hrs Laboratory Tests Test 02/12/17 17:08 02/13/17 04:55 02/13/17 07:54 02/13/17 11:32 Bedside Glucose 139 98 129 White Blood Count 13.6 H Red Blood Count 3.60 L Hemoglobin 9.9 L Hematocrit 32.0 L Mean Corpuscular Volume 88.9 Mean Corpuscular Hemoglobin 27.5 L Mean Corpuscular Hemoglobin Concent 30.9 L Red Cell Distribution Width 14.7 H Platelet Count 309 Mean Platelet Volume 9.7 Neutrophils % 77.1 H Lymphocytes % 5.3 L Monocytes % 10.9 Eosinophils % 1.0 Basophils % 0.2 Nucleated Red Blood Cells % 0.0 Neutrophils # 10.5 H Lymphocytes # 0.7 L Monocytes # 1.5 H Eosinophils # 0.1 Basophils # 0.0 Nucleated Red Blood Cells # 0.0 Sodium Level 138 Potassium Level 3.8 Chloride Level 100 Carbon Dioxide Level 31 Anion Gap 11 Blood Urea Nitrogen 14 Creatinine 0.86 Glucose Level 102 Calcium Level 8.4 Medications Medications Current Medications Ondansetron HCl (Zofran Inj) 4 mg Q6H PRN IV NAUSEA AND/OR VOMITING; Start at 19:30 Acetaminophen (Tylenol Tab) 650 mg Q6H PRN PO PAIN LEVEL 1-3 OR FEVER; Start at 19:30 Acetaminophen/ Hydrocodone Bitart ([place] (5/325)) 1 tab Q6H PRN PO MODERATE PAIN LEVEL 4-6 Last administered on 02/12/17 20:11; Admin Dose 1 TAB; Start at 19:30 Acetaminophen/ Hydrocodone Bitart ([place] (5/325)) 2 tab Q6H PRN PO SEVERE PAIN LEVEL 7-10 Last administered on 02/07/17 22:58; Admin Dose 2 TAB; Start at 19:30 Docusate Sodium (Colace) 100 mg Q12H PRN PO CONSTIPATION; Start 02/03/17 at 19: 30 Magnesium Hydroxide (Milk Of Mag) 30 ml DAILY PRN PO CONSTIPATION; Start at 19:30 Bisacodyl (Dulcolax Supp) 10 mg DAILY PRN [place] CONSTIPATION; Start 02/03/17 at 19 :30 Pantoprazole (Protonix Tab) 40 mg DAILY@06 PO Last administered on 02/13/17 06 :09; Admin Dose 40 MG; Start 02/04/17 at 06:00 Miscellaneous Information 1 ea NOTE XX ; Start 02/03/17 at 20:00 Glucose (Glutose) 15 gm Q15M PRN PO DECREASED GLUCOSE; Start 02/03/17 at 20:00 Glucose (Glutose) 22.5 gm Q15M PRN PO DECREASED GLUCOSE; Start 02/03/17 at 20: 00 Dextrose (D50w Syringe) 25 ml Q15M PRN IV DECREASED GLUCOSE; Start 02/03/17 at 20:00 Dextrose (D50w Syringe) 50 ml Q15M PRN IV DECREASED GLUCOSE; Start 02/03/17 at 20:00 Glucagon (Glucagen) 1 mg Q15M PRN IM DECREASED GLUCOSE; Start 02/03/17 at 20:00 Glucose (Glutose) 15 gm Q15M PRN BUCCAL DECREASED GLUCOSE; Start 02/03/17 at 20 :00 Lorazepam (Ativan) 0.5 mg Q8H PRN IV ANXIETY; Start 02/03/17 at 20:00 Allopurinol (Zyloprim) 100 mg DAILY PO Last administered on 02/13/17 08:12; Admin Dose 100 MG; Start 02/04/17 at 09:00 Aspirin (Halfprin) 81 mg DAILY PO Last administered on 02/13/17 08:13; Admin Dose 81 MG; Start 02/04/17 at 09:00 Cholecalciferol (Vitamin D) 2,000 unit DAILY PO Last administered on 02/13/17 08:12; Admin Dose 2,000 UNIT; Start 02/04/17 at 09:00 Metoclopramide HCl (Reglan) 10 mg Q6H PRN IV NAUSEA AND/OR VOMITING; Start at 19:00 Famotidine (Pepcid) 20 mg Q12 PO Last administered on 02/13/17 08:12; Admin Dose 20 MG; Start 02/05/17 at 21:00 Diphenhydramine HCl (Benadryl) 25 mg Q4H PRN IV PRURITUS; Start 02/05/17 at 19: 30 Linagliptin (Tradjenta) 5 mg DAILY PO Last administered on 02/13/17 08:13; Admin Dose 5 MG; Start 02/06/17 at 10:00 Lisinopril (Zestril) 20 mg DAILY PO Last administered on 02/13/17 08:12; Admin Dose 20 MG; Start 02/10/17 at 09:00 IV Flush 10 ml 10 ml PRN PRN IV IV PROTOCOL; Start 02/11/17 at 16:00 Ertapenem/Sodium Chloride (Invanz/NS) 100 ml @ 200 mls/hr Q24H IVPB Last administered on 02/13/17 15:04; Admin Dose 200 MLS/HR; Start 02/13/17 at 16:00 Levofloxacin (Levaquin) 500 mg DAILY PO Last administered on 02/13/17t 11:39; Admin Dose 500 MG; Start 02/13/17 at 11:00 BALDEV RASMUSSEN NP Feb 13, 2017 16:03
--- NOTE | 2017-02-14 13:20 | DS ---
DATE OF ADMISSION: 02/03/2017 DATE OF DISCHARGE: 02/13/2017 CONSULTANTS DURING THIS ADMISSION: Dr. Elmore from pulmonary critical care, Dr. Baker from infect ious disease, Dr. Barron from cardiothoracic surgery. ADMITTING PHYSICIAN: Paulie Patricio MD DISCHARGING PHYSICIAN: Paulie Patricio MD CHIEF COMPLAINT ON ADMISSION: Discomfort. BRIEF HISTORY OF PRESENT ILLNESS: This is a 76-year-old male with known chronic kidney disease stag e I or II, prediabetic from what he is reporting, and a recent diagnosis of right lower lobe pneumon ia that has been going on for almost a month and a half, presented to the emergency department with inability to sleep. He was also noted to be in slight respiratory distress. Chest x-ray did show p ersistent pneumonia with possible effusion. The patient was therefore admitted to a medical/surgica l bed, also because he was found to have a white blood cell count up to 33,000 on admission. HOSPITAL COURSE: The patient had a CAT scan of the chest done on admission that did show a loculate d pleural effusion suspicious for empyema on the right lower lobe. A diagnostic thoracentesis was d one which confirmed empyema. Cardiothoracic surgery was consulted. They have evaluated the patient and did plan for VATS with decortication, right lower lobe. The patient was seen by infectious dis ease and pulmonary. He did proceed with the procedure, did well. On postoperative day #1, transfer red from the intensive care unit back to telemetry floor. The patient at first was on room air, the n he started requiring oxygen. A repeat CAT scan of his chest did show a dense consolidate right lo wer lobe, right middle lobe consistent with pneumonia. Therefore, at that point, infectious disease did change his antibiotic regimen from Zosyn and vancomycin to meropenem and vancomycin, also due t o the fact that the patient's white blood cell count started trending back up to the 30,000 range. Since the change of his antibiotics, his white blood cell count has trended down to 13. At this poi nt, his oxygen requirement varied from room air to 2 liters nasal cannula depending on the amount of exertion he is undergoing His chest x-ray followup does show a right lower lobe infiltrate, but he has been improving greatly with the current antibiotic regimen. Infectious disease at this point i s recommending for the patient to be discharged on Invanz once a day along with Levaquin 500 mg p.o. daily for 2 more weeks. I have discussed discharge planning with the patient and also with courtney garcia, who is recommending a repeat chest x-ray as an outpatient in 1 week. A PICC line has been place d. The patient will be discharged today on Invanz 1 gram IV q.24 hours and Levaquin 500 mg p.o. benjamín ly for 1 week. He has been on vancomycin over the past 10 days already, his last dose was last night. The patient is discharged home today in stable condition. DISPOSITION: Discharge home with home health for IV antibiotics and also home health physical thera py. DISCHARGE CONDITION: Stable. DISCHARGE DIET: Carbohydrate controlled diet. FOLLOWUP: 1. The patient is to follow up with his primary care physician within 1 week. 2. Cardiothoracic surgery, Dr. Barron in [address] Elmore with pulmonary in 1 to [address] Baker in 2 weeks. 5. He will require a chest x-ray in 1 week, 2 views, in order to evaluate and follow up his right l ower lobe pneumonia. 6. He is to follow up with home health physical therapy and home health RN for IV antibiotics and a lso lab draw. 7. He has been provided with oxygen for discharge purposes. DISCHARGE DIAGNOSES 1. Right lower lobe empyema status post VATS and decortication. 2. Acute postoperative anemia, resolved. 3. Chronic kidney disease stage I or II. 4. Diabetes mellitus, controlled. 5. Hypertension. DISCHARGE MEDICATIONS: 1. Invanz 1 gram IV daily for 14 days. 2. Pepcid 20 mg p.o. twice daily. 3. [place] 5/325 one tab p.o. q.6 hours p.r.n. pain. 4. Floranex 1 tab p.o. b.i.d. 5. Levaquin 500 mg p.o. daily for 14 days. 6. Tradjenta 5 mg p.o. daily. 7. Allopurinol 100 mg p.o. daily. 8. Aspirin 81 mg p.o. daily. 9. Vitamin D3 2000 mg p.o. daily. 10. Lisinopril/hydrochlorothiazide 20/12.5 one tab p.o. daily. The patient was also given a prescription for chest x-ray in 1 week and also for a glucometer, samia ts and strips. Dictated By: PAULIE COSTA/JARED Conf#: [id number] DID#: [id number]
== END 2017-02-13 16:27 | disposition home health service (06) | DRG 163 ==
LOC: FTE 15:00 → PP2 19:13 → ICU 02-05 17:15 → MS4 02-06 23:42 → PP2 02-09 20:38
PROVIDERS: ADMIT Internal Medicine; ATTEND Internal Medicine
PROC: 0W993ZX Drainage of Right Pleural Cavity, Percutaneous Approach, Diagnostic (ICD-10-PCS; 2017-02-04)
PROC: 0BBM8ZX Excision of Bilateral Lungs, Via Natural or Artificial Opening Endoscopic, Diagnostic (ICD-10-PCS; 2017-02-05)
PROC: 0BDN0ZZ Extraction of Right Pleura, Open Approach (ICD-10-PCS; principal; 2017-02-05 17:00)
PROC: 30233N1 Transfusion of Nonautologous Red Blood Cells into Peripheral Vein, Percutaneous Approach (ICD-10-PCS; 2017-02-06)
PROC: 02HV33Z Insertion of Infusion Device into Superior Vena Cava, Percutaneous Approach (ICD-10-PCS; 2017-02-11)
PROC: B548ZZA Ultrasonography of Superior Vena Cava, Guidance (ICD-10-PCS; 2017-02-11)
DX: J18.9 Pneumonia, unspecified organism (principal); J86.9 Pyothorax without fistula; E11.22 Type 2 diabetes mellitus with diabetic chronic kidney disease; D62 Acute posthemorrhagic anemia; J90 Pleural effusion, not elsewhere classified; E86.0 Dehydration; I12.9 Hypertensive chronic kidney disease with stage 1 through stage 4 chronic kidney disease, or unspecified chronic kidney disease; N18.2 Chronic kidney disease, stage 2 (mild); Z79.4 Long term (current) use of insulin; Z87.442 Personal history of urinary calculi; Z85.828 Personal history of other malignant neoplasm of skin
CPT/HCPCS: 36415; 36430; 36569; 36600; 71010; 71250; 76937; 76942; 80048; 80053; 80202; 81001; 81003; 82565; 82803; 82962; 83036; 83605; 83690; 83735; 84100; 84484; 84520; 85014; 85018; 85025; 85610; 85730; 86644; 86850; 86900; 86901; 86920; 87040; 87070; 87075; 87081; 87102; 87116; 88104; 88305; 88307; 88313; 90686; 93005; 94640; 94644; 94664; 96361; 96365; 96366; 96367; 97116; 97162; 97530; J0690; J0692; J0696; J1100; J1200; J1335; J1644; J1815; J2185; J2250; J2270; J2274; J2370; J2405; J2710; J3010; J3370; J3475; J3480; J7030; J7040; J7050; P9016